=== PATIENT | female | born 1950 | race Caucasian/White ===

== ENCOUNTER 2017-10-10 05:55 | Day surgery (SDC) | payer MEDICARE, MEDICAID, SELFPAY ==
--- NOTE | 2017-10-10 06:06 | EKG12_ITS ---
Test Reason : PRE OP Blood Pressure : / mmHG Vent. Rate : 076 BPM Atrial Rate : 076 BPM P-R Int : 176 ms QRS Dur : 070 ms QT Int : 360 ms P-R-T Axes : 064 027 088 degrees QTc Int : 405 ms Normal sinus rhythm Nonspecific T wave abnormality Abnormal ECG Confirmed by LEYLA PURVIS, HUMBERTO ([id number]), video editor TORI SANCHEZ ([id number]) on 10/13/2017 2:03:25 PM Referred By: Sharlene Casillas Confirmed By:HUMBERTO MAYER MD
[2017-10-10 06:17] VITALS: BP 135/74; PULSE 79; RESP 16; TEMP 36.8; O2SAT 98; BMI 36.3
[2017-10-10 06:20] LABS: Hematocrit 43.1 % (37-47); Hemoglobin 14.1 g/dl (12.0-15.0); Mean Corp Hgb Conc 32.7 g/gl (32-36); Mean Corpuscular Hgb 29.6 pg (27.0-32.0); Mean Corpuscular Volume 90.4 fL (81-99); Mean Platelet Vol. 9.7 fl (6.2-12.0); Platelet Count 341 K/mm3 (150-450); RBC Distribution Width CV 13.1 % (11.6-14.6); RBC Distribution Width SD 43.4 fl (35.1-43.9); Red Blood Count 4.77 M/mm3 (4.2-5.4); White Blood Count 11.5 K/mm3 (4.4-11.0)
[2017-10-10 06:22] LABS: Scan Indicated on CBC? Y/N NO
[2017-10-10] MEDS: Clindamycin 900 MG/50 ML BAG 75 MG IV (07:28)
--- NOTE | 2017-10-10 07:30 | GALL_PTH ---
PATIENT: AMARJIT ARREOLA LOC: [facility] – [place] U#:[id number] AGE/SX: 66/F ROOM: RE10/10/[address]: Dr. Sharlene Casillas MD : 1950 BED: DIS: 10/10/2017 SPEC #: [id number] RECD: 10/10/17 11:35 STATUS: JUAN DAVID GUICHO #: [id number] MICHAEL: 10/10/17 07:[address]: Sharlene Casillas DEPT: SURGICAL PATHOLOGY RECD BY: Tiago Saunders ENTERED: 10/10/17 12:47 SP TYPE: FREDI HARMON DR: Dr. Anthony Schwartz MD Tissues: Gallbladder, NOS Procedures: Surgery Specimen Level III HEADER OPERATION: Laparoscopic cholecystectomy PRE-OP DIAGNOSIS: Calculus of gallbladder without cholecystitis without obstruction TISSUE SUBMITTED: Gallbladder MICROSCOPIC DIAGNOSIS Gallbladder, cholecystectomy: Chronic cholecystitis with denudation of mucosa and cholelithiasis. AM:derek 10/11/17 MICROSCOPIC DESCRIPTION Slides are reviewed. GROSS DESCRIPTION Received is one container labeled with the patient's name and designated gallbladder. The specimen consists of a gallbladder measuring 12 x 5 x 3 cm. The external surface is smooth and glistening. Focally, it is granular, hemorrhagic and contains cautery artifact. The lumen of the gallbladder contains a small amount of yellow bile and dark rojo-arroyo calculus measuring 3 cm in diameter. Also present in the lumen are multiple minute fragments of calculi ranging in size from 0.2 to 0.3 cm. The gallbladder mucosa is smooth and glistening and free of mass lesions. The gallbladder wall averages 0.3 cm in thickness and is free of mass lesions. Beater Dumper sections of the gallbladder and the cystic duct are submitted in one cassette. / AM:derek 10/10/17 TC:3 [facility]: [id number]
[2017-10-10] MEDS: Bupiv/Epi 0.5% Mpf 30 ML Vial (08:46)
--- NOTE | 2017-10-10 08:49 | PCM.IMDPSTOP ---
Immediate Post-Op Note Date of Procedure: 10/10/17 Primary Surgeon/Physician: Sharlene Casillas children's choir director: Siobhan Soto Pre-Operative Diagnosis: cholelithiasis Post-Operative Diagnosis: cholelithiasis with obstruction, cholecystitis Surgery/Procedure Performed:: laparoscopic cholecystectomy Description of Surgical Findings:: large gallbladder stone, edematous gallbladder wall, adhesions to the free surface of the gallbladder of the colon and duodenum Estimated Blood Loss: 10 ml Specimen's removed: gallbladder and contents Type of Anesthesia:: General ASA Class: ASA2 Mod Systematic Disease - Admit VTE Documentation VTE Present on Admission: Yes VTE Mechan Device Prophylaxis: SCD's
--- NOTE | 2017-10-10 08:51 | PCM.OPRPT ---
Report of Operation Date of Procedure: 10/10/17 Pre-Operative Diagnosis: cholelithiasis Post-Operative Diagnosis: cholelithiasis with obstruction, cholecystitis Surgery/Procedure Performed:: laparoscopic cholecystectomy Description of Surgical Findings:: large gallbladder stone, edematous gallbladder wall, adhesions to the free surface of the gallbladder of the colon and duodenum presser automatic: Siobhan Soto Type of Anesthesia:: General Anesthesiologist: Linda Webster Specimen's removed: gallbladder and contents Estimated Blood Loss (mL): 10 ml Fluids Replaced: 1000 ml RL Description of Procedure: After informed consent was given, the patient was brought to the Operating Room and placed in the supine position. Appropriate time out protocol was followed. The patient was then placed under general endotracheal anesthesia. The abdomen was then prepped with a sterile surgical skin preparation and sterile surgical drapes were placed. The supraumbilical skin fold was grasped with penetrating clamps and the skin and subcutaneous tissues were infiltrated with 0.25% marcaine with epinephrine. A skin incision was then made with a 15 blade scalpel. The anterior abdominal wall was elevated and a Veress needle was carefully inserted into the intraabdominal cavity. It was checked to be in the proper position with a normal saline drop test. A CO2 pneumoperitoneum was then created. Once this was achieved, then the Veress needle was removed and an 11mm trocar was placed in its stead. A 10mm laparoscope was then inserted into the trocar and careful attention was directed to the intraabdominal contents. There was no evidence of injury to any intraabdominal organs from insertion of the Veress needle or the trocar. Under direct visualization, a 5mm subxiphoid trocar and two lateral 5mm right subcostal trocars were placed. The skin and subcutaneous tissues at these sites were infiltrated with local anesthetic prior to placement of these trocars. Attention was then directed to the right upper quadrant of the abdomen. The gallbladder was grossly distended. Needle aspirator was inserted into the gallbladder to aspirate its contents - clear slightly tinged green fluid was obtained. This deflated the gallbladder so that it could be grasped easily. Graspers were placed in the lateral trocars to grasp the distal aspect of the gallbladder and direct it cephalad and to grasp the gallbladder at Hartmans pouch and direct it laterally. Dissection then began on the proximal gallbladder continuing down to the area of the triangle of Calot to bluntly dissect out the cystic duct. The neck of the gallbladder was identified and blunt dissection continued to dissect out a segment of the cystic duct. A clip was then placed on the neck of the gallbladder. Two clips were placed proximally and the cystic duct was then transected. The cystic artery was visualized and bluntly isolated and then two clips were placed proximally and one clip distally and then it was transected between the proximal and distal clips. The gallbladder was then from the liver bed using electrocautery and thus able to be brought out of the umbilical port. It was then forwarded to pathology for analysis. The liver bed was carefully examined. There was no evidence of bile leakage or bleeding. The cystic duct stump and cystic artery stump had their clips intact and there was no evidence of bile leakage or bleeding. The remainder of the abdomen was grossly normal. The CO2 was released and all trocars removed intact. The periumbilical fascia was approximated with a [id number] 0 vicryl suture. All skin incision were closed with 4-0 monocryl in a subdermal fashion. Cavilol and Steristrips were used to reinforce the skin closure. Sterile dressings were applied to all wounds. The patient was extubated and brought to the Recovery Room in stable condition. - Complications none noted - Admit VTE Documentation VTE Present on Admission: Yes VTE Mechan Device Prophylaxis: SCD's
--- NOTE | 2017-10-10 08:54 | PCM.DC.GB ---
Discharge Diet: No Restrictions Discharge Activity: Return to Normal Activity, May not drive while taking narcotic pain medications. Lifting Restrictions: no lifting greater than 20 pounds for 2 weeks Call your doctor if your incision/area has: Continuous Slow Oozing, Foul Smelling Discharge Call your doctor if you observe: Fever of 101 or Higher Additional Dressing/Incision Instructions:: Leave dressings in place. May get wet in shower - do not scrub in the area of the dressings. Do not soak - no tub baths/swimming Allergies/Adverse Reactions: Allergies Penicillins Allergy (Verified 10/07/17 10:40) Unknown IT'S MOLD THAT EATS YOUR BLOOD CELLS. Medications to take at Discharge Amlodipine [Norvasc] 5 mg PO DAILY 10/07/17 Benztropine Mesylate 0.5 mg PO BID 10/07/17 Cholecalciferol (Vitamin D3) [Vitamin D3] 1,000 unit PO DAILY 10/07/17 Haloperidol [Haldol] 2.5 mg PO BID 10/07/17 Omeprazole [Prilosec] 20 mg PO DAILY 10/07/17 Hydrocodone Bitart/Apap 5-325 [[place] 5MG-325MG] 1 tab PO Q6H PRN PRN 4 Days #16 tab 10/10/17 The following prescriptions were given: Hydrocodone Bitart/Apap 5-325 [[place] 5MG-325MG] 1 tab PO Q6H PRN PRN 4 Days #16 tab PRN Reason: Pain Primary Care Physician: Anthony Schwartz MD [Primary Care Provider] - Please Follow Up With: Sharlene Casillas MD - call When: to be seen in 7-10 days, please call for date and time, thank you
[2017-10-10 09:04] VITALS: BP 135/74; BP 176/82; PULSE 96; RESP 16; TEMP 36.2; O2SAT 94
[2017-10-10 09:15] VITALS: BP 118/71; BP 135/74; PULSE 90; RESP 16; O2SAT 96
[2017-10-10 09:30] VITALS: BP 131/65; BP 135/74; PULSE 84; RESP 16; O2SAT 93
[2017-10-10 09:45] VITALS: BP 132/68; BP 135/74; PULSE 81; RESP 16; TEMP 36.9; O2SAT 94
[2017-10-10 10:08] VITALS: BP 132/78; BP 135/74; PULSE 70; RESP 18; TEMP 36.6; O2SAT 100
== END 2017-10-10 10:30 | disposition home or self-care (01) ==
LOC: SDC 05:57 → AC 05:59
PROVIDERS: Anesthesiology; Family Provider Family Medicine; PCP Family Medicine; Visit Provider Surgery
PROC: (CPT 47610; principal; 2017-10-10 07:10)
DX: K80.11 Calculus of gallbladder with chronic cholecystitis with obstruction (principal); F20.9 Schizophrenia, unspecified; K21.9 Gastro-esophageal reflux disease without esophagitis; I10 Essential (primary) hypertension; E66.01 Morbid (severe) obesity due to excess calories; Z68.37 Body mass index [BMI] 37.0-37.9, adult; Z91.09 Other allergy status, other than to drugs and biological substances; Z87.42 Personal history of other diseases of the female genital tract; Z86.718 Personal history of other venous thrombosis and embolism; Z87.01 Personal history of pneumonia (recurrent); Z78.0 Asymptomatic menopausal state; F17.210 Nicotine dependence, cigarettes, uncomplicated; Z79.899 Other long term (current) drug therapy
CPT/HCPCS: 00790; 47562; 85027; 88304; 93005; J7120; J2405

== ENCOUNTER 2018-04-02 18:48 | Emergency (ER) | payer MEDICARE, SELFPAY ==
[2018-04-02] VITALS (7 sets, daily range): BP systolic 105–134; BP diastolic 62–94; PULSE 81–103; RESP 14–18; TEMP 36.8; O2SAT 91–96; BMI 36.3
[2018-04-02] MEDS: Ipratropium/Albuterol Sulfate 3 ML AMPUL.NEB INHALATION (19:59)
[2018-04-02 20:07] LABS: Absolute Lymphocyte Count 2.36 X10^3/ul (0.83-4.51); Absolute Neutrophil Count 7.5 X10^3/uL (2.0-7.7); Basophil# 0.02 X10^3/uL; Basophil% 0.2 % (0-1); Eosinophil# 0.15 X10^3/uL; Eosinophils% 1.3 % (0-5); Hematocrit 43.5 % (37-47); Hemoglobin 14.4 g/dl (12.0-15.0); Lymphocyte # 2.36 X10^3/ul (4.0); Lymphocyte % 20.6 % (19-41); Mean Corp Hgb Conc 33.1 g/gl (32-36); Mean Corpuscular Hgb 29.6 pg (27.0-32.0); Mean Corpuscular Volume 89.5 fL (81-99); Mean Platelet Vol. 10.5 fl (6.2-12.0); Monocyte# 1.39 X10^3/uL; Monocyte% 12.1 % (0-10); Neutrophil # 7.54 X10^3/uL (2.7-7.7); Neutrophil % 65.6 % (47-70); Platelet Count 262 K/mm3 (150-450); RBC Distribution Width CV 13.4 % (11.6-14.6); RBC Distribution Width SD 44.1 fl (35.1-43.9); Red Blood Count 4.86 M/mm3 (4.2-5.4); White Blood Count 11.5 K/mm3 (4.4-11.0)
[2018-04-02 20:08] LABS: POSITIVE COUNT NO; POSITIVE DIFFERENTIAL NO; POSITIVE MORPHOLOGY NO
[2018-04-02 20:14] LABS: Anion Gap 7 (5-15); BUN 13 mg/dL (7-18); Calcium,Total 8.7 mg/dL (8.5-10.1); Chloride 102 mmol/L (98-107); Creatinine, Serum 0.76 mg/dL (0.55-1.02); EST Glomerular Filtration Rate 80 mL/min (>60); Est Glom Filt Rate - Afr Amer 97 mL/min (>60); Estimated Creatinine Clearance 47.14 ml/min; Glucose 91 mg/dL (74-106); Potassium 3.9 mmol/L (3.5-5.1); Sodium Level 136 mmol/L (136-145)
--- NOTE | 2018-04-02 20:30 | RAD_ITS ---
STUDY: X-RAY CHEST REASON FOR EXAM: Female, 67 years old. Cough and shortness of breath TECHNIQUE: PA and lateral views of the chest. COMPARISON: 11/18/2015 FINDINGS: EKG leads overlie the chest The lungs are clear and expanded. There is no demonstrated pleural abnormality. Normal size heart. Normal mediastinum and savanna. Normal visualized pulmonary arteries. Normal visualized aortic arch and descending thoracic aorta. There are diffuse degenerative changes of the visualized thoracic spine. Normal visualized ribs, clavicles, and shoulders. There is no demonstrated abnormality of the visualized soft tissue structures of the upper abdomen. RAD/Chest PA and Lateral IMPRESSION: No acute pulmonary process Electronically Signed: Lexx Tavares MD at 20:49 EDT , Service support ,
--- NOTE | 2018-04-02 22:15 | ED.VISSUMM ---
- ER Visit Summary Date of Service: 04/02/18 Chief Complaint: Shortness of breath and cough History of Present Illness: The patient is a 67 F who presents with shortness of breath and cough that has been getting worse over the past 2-3 days. Patient states she is coughing up some clear sputum. Patient admits to subjective fevers. Patient also admits to some rhinorrhea. Patient states her breathing improves when she stands up. Patient [place] and another resident at the penitentiary was recently diagnosed with pneumonia. Caregiver from the penitentiary is concerned that the patient may have developed pneumonia. Physical Examination: Vital signs are stable. Patient is afebrile. Patient is in no acute distress. Oral mucosa is pink and moist. Neck is supple. Trachea is midline. There is no JVD noted. Heart was regular rate and rhythm. Lungs showed scattered rhonchi. There is good respiratory effort noted. Abdomen is soft. Bowel sounds are normal. There is no tenderness. Cranial nerves II through XII are intact. There are no focal motor or sensory deficits noted. The remaining physical exam is within normal limits. Test Results: PA and lateral chest x-ray was obtained. There is evidence of bronchitis. This was interpreted by the radiologist and reviewed by myself. Emergency Department Course and Treatment: Patient was given a DuoNeb aerosol here. Patient was given a dose of Zithromax here. Patient was given a prescription for Zithromax. Patient was instructed to follow-up with her primary care physician in 5-7 days. Patient was instructed to continue her inhaler as previously prescribed. Patient and her caregiver understood and were agreeable with the plan. All questions were answered. Disposition: Discharge home Impression: Acute bronchitis This note was generated with [employer] dictation software. It may contain incorrect words, spelling, and punctuation that were not noted in review of the chart prior to signing ED Disposition - Plan for ED Patient: Disposition: Home or Assisted Living Chief Complaint: Shortness of Breath Diagnosis: Acute bronchitis Instructions: ED Bronchitis Asthmatic Prescriptions: Azithromycin [Zithromax] 250 mg PO DAILY #4 tab Referrals: Anthony Schwartz MD [Primary Care Provider] - Additional Instructions: Use your inhaler as previously prescribed. Take the antibiotic daily until gone starting on April 03.
[2018-04-02] MEDS: Azithromycin 250 MG Tablet 500 MG PO (22:26)
--- NOTE | 2018-04-03 13:36 | CM.ED ---
ED CALLBACK: Follow-up call placed to patient with no answer. Voicemail left with return contact information.
== END 2018-04-02 22:29 | disposition home or self-care (01) ==
PROVIDERS: Emergency Provider Emergency Medicine; Family Provider Family Medicine; PCP Family Medicine
DX: J20.9 Acute bronchitis, unspecified (principal); K21.9 Gastro-esophageal reflux disease without esophagitis; I10 Essential (primary) hypertension; F20.9 Schizophrenia, unspecified; Z72.0 Tobacco use; Z79.899 Other long term (current) drug therapy
CPT/HCPCS: 71046; 80048; 85025; 94640; 99285; A4216

== ENCOUNTER 2019-01-18 09:15 | Day surgery (SDC) | payer MEDICARE, SELFPAY ==
--- NOTE | 2019-01-17 18:54 | HP.PCM_ITS ---
History and Physical Date of Admission: 01/18/19 Lupe Chamberlain 1950 ? ? REFERRING PHYSICIAN: Anthony Schwartz MD ? CHIEF COMPLAINT: Mammogram Abnormality ? HPI: The patient is a 68 year old female presents with right nipple inverstion noted for about 2 years. Denies palpable breast mass. Denies nipple discharge. Denies breast pain. Has abnormal mammograms and ultrasound - see below. Denies TOB use. No breast or ovarian cancer known in family. Mother had uterine cancer. ? Mammograms 12/05/18 There is a 1.2 cm round equal density focal asymmetry in the right breast at 12 o'clock in the retroareolar region. ?There is nipple retraction associated with the focal asymmetry.No other significant masses or calcifications are seen in the breast. US 12/27/18 There is 1.2 cm x 0.8 cm x 1.3 cm oval complex cyst with a smooth internal wall in the right breast at 12 o'clock anterior depth. ?This oval complex cyst is anechoic with a well-defined boundary. ?This correlates with mammography findings. ? Within the cyst, there is a soft tissue mass measuring 4 mm in diameter. ? US guided right needle core breast biopsy - fragmented intraductal papilloma with focal atypical ductal hyperplasia? ? ? PAST MEDICAL HISTORY ? Acute bronchitis ? ? Dementia ? ? since early 1969's ? Endometriosis, site unspecified ? ? had hyster for this ? GERD (gastroesophageal reflux disease) ? ? HTN (hypertension) ? ? Other specified types of schizophrenia, chronic condition ? ? [facility] ? PAST SURGICAL HISTORY ? APPENDECTOMY ? 1982 ? when they did hyster ? LAPAROSCOPIC CHOLEYCYSTECTOMY ? 10/10/2017 ? PAST SURGICAL HISTORY OF ? ? ? cyst removed on right breast ? PAST SURGICAL HISTORY OF ? ? ? cyst removed right ear ? PAST SURGICAL HISTORY OF ? ? ? cyst removed left great toe ? TOTAL ABDOM HYSTERECTOMY ? 1982 ? Hysterectomy, JUAN CARLOS ? ? Current Outpatient Medications: escitalopram oxalate (LEXAPRO) 10 mg tablet ? amLODIPine (NORVASC) 5 mg tablet Take 1 tablet by mouth once daily. Cholecalciferol, Vitamin D3, (VITAMIN D) 1,000 unit cap Take 1 capsule by mouth every morning. omeprazole (PRILOSEC) 20 mg capsule TAKE 1 CAPSULE BY MOUTH DAILY BEFORE BREAKFAST. 1/2 HOUR BEFORE MEAL. albuterol HFA (PROAIR HFA) 90 mcg/actuation inhaler Inhale 2 Puffs as instructed every 4 hours as needed. VENTOLIN HFA 90 mcg/actuation inhaler INHALE 2 PUFFS EVERY 4 HOURS NEEDED WHEEZING / SHORTNESS OF BREATH COMPOUNDED PRESCRIPTION Large depends diapers1 box doxycycline monohydrate (MONODOX) 100 mg capsule Take 1 capsule by mouth twice daily. benzonatate (TESSALON PERLE) 100 mg capsule Take 1 capsule by mouth three times daily as needed. PAIN AND FEVER 500 mg tablet PATIENT MAY USE 500 OR 650MG EVERY SIX HOURS NEEDED FOR PAIN loratadine (CLARITIN) 10 mg tablet Take 1 tablet by mouth once daily. MAPAP ARTHRITIS PAIN 650 mg CR tablet PATIENT MAY USE 500MG TO 650MG EVERY SIX HOURS NEEDED FOR PAIN benztropine (COGENTIN) 1 mg tablet Take 0.5 mg by mouth twice daily. COMPOUNDED PRESCRIPTION Patient may use tylenol 500-650 mg every six hours as needed for pain. haloperidol 5 mg tablet Take 0.25 mg by mouth twice daily. ? ? ALLERGIES: Penicillins ? PERSONAL HISTORY: Social History Socioeconomic History Marital status: Spouse name: Not on file Occupational History Not on file Tobacco Use Smoking status: Current Every Day Smoker Years: 30.00 Types: Cigarettes Smokeless tobacco: Never Used Tobacco comment: one or two a day ? FAMILY HISTORY ? Cancer Mother ?? uterine cancer ? Hypertension Mother ? ? Heart Mother ? ? Cancer Father ?? lung cancer ? Cancer Brother ? lung ? other (dementia) Sister ? ? Cancer Sister ? lumphoma ? ? REVIEW OF SYSTEMS: General: The patient denies fatigue, denies weight loss, denies weight gain, denies feeling hot, and denies feelings of cold. Eyes: The patient denies glaucoma, denies eye injury/surgery, does not wear glasses or contacts. Ear/Nose/Throat: The patient denies allergies, NOTES hayfever, denies ear infections, and denies bloody noses. Cardiovascular: The patient denies chest pain, denies heart disease, NOTES high blood pressure,denies cardiac stent, denies prior heart attack, denies irregular heart beat, denies high cholesterol, denies poor circulation, denies heart failure, other cardiac issues, denies claudication, denies cold feet, denies peripheral arterial stent. Respiratory: The patient denies tuberculosis, denies pneumonia, denies frequent cough, denies pulmonary embolism, denies shortness of breath, and denies coughing up blood. Gastrointestinal: The patient denies difficulty swallowing, NOTES acid reflux, denies ulcers, denies vomiting, denies jaundice/hepatitis, denies gallbladder problems, denies black or tarry stools, denies hemorrhoids, denies bleeding from rectum, denies diverticulitis, denies constipation, denies diarrhea, denies loss of stool control, and denies hernias. Kidney/Bladder: The patient denies kidney stones, denies urine infections, and denies bloody urine. Skin: The patient denies a history of skin cancer, denies blee ding/changing moles, and denies a history of skin rash. Neurologic: The patient denies a history of epilepsy/convulsions, denies headaches, denies head/spinal injuries, and denies stroke/TIA. Psychiatric: The patient denies psychiatric medications, NOTES depression, and denies voices, denies substance abuse. Endocrine: The patient denies thyroid disorders, denies diabetes, and de nies hormonal problems. Hematologic: The patient denies a history of bruising, denies bleeding, and denies anemia, denies blood clots. Infections: The patient NOTES a history of measles and mumps, denies rheumatic fever, and denies sexually transmitted diseases. Musculoskeletal: The patient denies back pain/injury, denies back problems, denies sciatica, denies knee/foot trouble, denies arthritis, or denies gout. Obstetrical: menarche onset at age [age], G0, BCP use from age 14 for >20y, surgical menopause at age 33 ? PHYSICAL EXAMINATION: General: The patient is 68 year old female, well nourished, well hydrated in no acute distress. The patient is oriented to time, place, and person. VITALS: Blood pressure 122/64, pulse 80, weight 98.9 kg (218 lb). Body mass inde x is 37.42 kg/m?. Head ? Normocephalic. EOM intact with sclera clear and no icterus noted. Mouth with mucus membranes moist. Neck - supple with no jugular venous distention noted. Trachea is midline. No carotid bruits noted. No thyroid enlargement or thyroid nodules detected. No masses noted. Chest/breast ? no asymmetry of breasts noted, no suspicious skin lesions noted, right nipple inversion - no left nipple inversion, healed incisional biopsy site with slight ecchymoses, no nipple discharge, Lungs ? clear to auscultation.. Normal breath sounds No rales/rhonchi/wheezing noted. No labored breathing noted, such as retractions. No cough heard. Heart ? normal S1 and S2 auscultated. No rubs/clicks/murmurs noted. Regular rate. Abdomen ? soft and benign. Normal bowel sounds. No abdominal bruits noted. Difficult to determine if any masses or organomegaly due to body habitus. Extremities ? no calf tenderness noted. No pitting edema noted. Skin ? normal skin integrity. Lymph ? no cervical adenopathy detected, no supraclavicular adenopathy detected, no axillary adenopathy detected Neurological ? gait normal, no focal deficits noted Psych ? calm and appropriate, RADIOLOGIC STUDIES: As Noted ? ? IMPRESSION: atypical ductal hyperplasia, right nipple inversion, abnormal right breast mammograms/US ? PLAN: I have discussed the above with the patient who is here with her case loader operator. I have recommended wide local excision to absolutely rule out breast malignancy. I have offered wide local excision via right breast biopsy via wire localization. I have answered all questions to the patient?s satisfaction and the patient has no further questions. Will schedule at [facility]. . Return to Clinic: The patient is instructed to follow-up with me after the procedure. ? Sharlene Casillas MD ?
--- NOTE | 2019-01-18 09:26 | BI_ITS ---
SURGICAL BREAST SPECIMEN RADIOGRAPH CLINICAL: Document presence of mass in biopsy specimen. FINDINGS: Specimen shows presence of mass. Electronically Signed: Riley Baum, at 7:58 EDT , Service support , BI/Breast Biopsy Specimen
[2019-01-18 09:34] VITALS: BP 142/65; PULSE 71; RESP 18; TEMP 36.8; O2SAT 96; BMI 36.5
[2019-01-18] MEDS: Bupiv/Epi 0.25% 30 ML Vial (11:53)
--- NOTE | 2019-01-18 12:00 | BRBX_PTH ---
PATIENT: AMARJIT ARREOLA LOC: [facility] [place] U#:[id number] AGE/SX: 68/F ROOM: RE01/18/[address]: Dr. Sharlene Casillas MD : 1950 BED: DIS: 01/18/2019 SPEC #: [id number] RECD: 01/18/19 12:17 STATUS: JUAN DAVID RENimco #: [id number] MICHAEL: 01/18/19 12:[address]: Sharlene Casillas DEPT: SURGICAL PATHOLOGY RECD BY: Tiago Saunders ENTERED: 01/18/19 13:32 SP TYPE: BREAST BX OTHR DR: Dr. Anthony Schwartz MD Tissues: Right breast, NOS Procedures: Surgery Specimen Level V HEADER OPERATION: Right breast biopsy via wire localization PRE-OP DIAGNOSIS: Atypical ductal hyperplasia - right; right nipple inversion; abnormal right breast mammogram TISSUE SUBMITTED: Right breast tissue with wire MICROSCOPIC DIAGNOSIS Right breast tissue with excisional biopsy with wire-guided localization: Intraductal papilloma, multifocal. Fibrocystic changes and intraductal hyperplasia with focal atypia. Ductal dilation. Changes consistent with previous biopsy site. Negative for malignancy. 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 Case has been reviewed in consultation with Dr. Sow who concurs with the above diagnosis. IDC:AM MICROSCOPIC DESCRIPTION Slides are reviewed. GROSS DESCRIPTION Received in fixative is one container labeled with the patient's name and designated right breast tissue. The specimen consists of an irregular fragment of yellow-white soft tissue measuring 9 x 3.6 x 2.5 cm and containing a metallic wire. No orientation is provided. The specimen weighs 29.7 gm. An area of hemorrhage possibly representing previous biopsy site is present measuring 2.5 x 1.2 cm. The specimen is inked and serially sectioned to reveal yellow-white cut surfaces. No distinct mass lesion is identified. Focal chalky, yellow discoloration is seen adjacent to the hemorrhagic area. Excavating Machine Operator sections are submitted in ten cassettes. The biopsy cavity is best represented in sections 1-5. / AM:derek 01/19/19 TC: 5 CPT: 75151
--- NOTE | 2019-01-18 12:23 | PCM.OPRPT ---
Report of Operation Date of Procedure: 01/18/19 Pre-Operative Diagnosis: breast neoplasia of uncertain behavior, right breast mass, abnormal right breast mammograms, right breast nipple inversion Post-Operative Diagnosis: same as above - pathology pending Surgery/Procedure Performed:: right breast biopsy via wire localization Description of Surgical Findings:: hematoma noted from biopsy, retroareolar mass causing right nipple inversion, clip not in specimen but all tissue from retroareolar area taken in biopsy boring mill operator for metal: Jordi Hernandez Type of Anesthesia:: Local MAC Anesthesiologist: Becky Salmeron Specimen's removed: right breast tissue Estimated Blood Loss (mL): < 10 ml Fluids Replaced: 1000 ml RL Description of Procedure: After informed consent was given, the patient was brought into the Breast Stereotactic Radiology suite. Appropriate time out protocol was followed. She was then placed in the prone position on the [place] stereotactic table. The patient?s right breast was placed in the opening at the head of the table. A water resource project manager compression mammogram was then obtained in the lateral view. The marker clip that was previously placed was identified. Stereo pictures of the lesion were then taken for XYZ coordinates. The Kopans needle was then positioned where it would be entering into the patient?s breast. The skin at this site was then cleansed with a surgical skin preparation. The skin and subcutaneous tissues at this site were then infiltrated with 1% xylocaine. The Kopans needle was then positioned into the patient?s breast at the proper coordinates of depth. A water resource project manager film was obtained which revealed the wire in proper position. The patient was then placed in the supine position and the wire was taped into place. A unilateral mammogram in the CC and MLO view were then taken for use in the OR. The patient tolerated this portion of the procedure well and was brought to the AC awaiting surgery in the OR. The patient was then brought to the Operating Room. Appropriate time out protocol was followed. She was then placed on the operating table in the supine position. A wire had already been placed in the stereotactic biopsy room in the radiology department as described above. The right breast with the wire in placed was then prepped with a sterile surgical skin preparation and sterile surgical drapes were placed. The skin and subcutaneous tissues at the site of the breast lesion was then infiltrated with 1% xylocaine with epinephrine. A transverse curvilinear skin incision was made on the lateral border of the areola of the right breast with a 15 blade scalpel and carried down through to the subcutaneous tissues. Hemostasis was controlled with electrocautery. The wire was then palpated out and brought into the wound from outside. The breast tissue surrounding the wire was then carefully palpated out, of note, there was a large hematoma in this area. However, the biopsy cavity was from the surrounding breast tissue in its entirety. Also there was a dense area of breast tissue that seemingly was causing the right nipple inversion and this was excised also from the surrounding breast tissue. and from the surrounding tissues using electrocautery. The breast tissue, once from the breast, was then forwarded to the radiology department. The specimen mammogram did not show the marker clip. The breast tissue was then forwarded to pathology for analysis. No further suspicious tissue was palpated or visualized. Hemostasis was carefully controlled with electrocautery. The subdermal tissues were then approximated with vicryl suture. The incision was then reapproximated close using running monocryl suture. Cavilon and steristrips were then placed to reinforce the skin closure. A sterile dressing was then applied. The patient was then brought to the Recovery Room in stable condition. - Complications none noted - Admit VTE Documentation VTE Present on Admission: Yes VTE Mechan Device Prophylaxis: SCD's
--- NOTE | 2019-01-18 12:29 | PCM.DC.BS ---
Discharge Diet: No Restrictions Discharge Activity: Return to Normal Activity, May not drive while taking narcotic pain medications. Additional Activity Instructions:: May shower and can get dressing wet. Do not scrub in area. Do not soak - no tub baths/swimming Call your doctor if your incision/area has: Continuous Slow Oozing, Foul Smelling Discharge Call your doctor if you observe: Fever of 101 or Higher Additional Dressing/Incision Instructions:: Leave dressing in place. Do not scrub in area. Wear supportive bra during the day. May apply ice to area for comfort Allergies/Adverse Reactions: Allergies Penicillins Allergy (Verified 01/15/19 14:09) Unknown IT'S MOLD THAT EATS YOUR BLOOD CELLS. Medications to take at Discharge Amlodipine [Norvasc] 5 mg PO DAILY 10/07/17 Benztropine Mesylate 0.5 mg PO BID 10/07/17 Cholecalciferol (Vitamin D3) [Vitamin D3] 1,000 unit PO DAILY 10/07/17 Haloperidol [Haldol] 2.5 mg PO BID 10/07/17 Omeprazole [Prilosec] 20 mg PO DAILY 10/07/17 Loratadine 10 mg PO DAILY 04/02/18 Escitalopram Oxalate [Lexapro] 10 mg PO QHS 01/15/19 Primary Care Physician: Anthony Schwartz MD [Primary Care Provider] - Please Follow Up With: Sharlene Casillas MD - call When: to be seen in a week, please call for date and time, thank you
[2019-01-18 12:40] VITALS: BP 110/58; BP 142/65; PULSE 86; RESP 16; TEMP 36.2; O2SAT 93
[2019-01-18 12:45] VITALS: BP 122/66; BP 142/65; PULSE 81; RESP 16; O2SAT 92
[2019-01-18 12:50] VITALS: BP 107/53; BP 142/65; PULSE 82; RESP 16; O2SAT 92
[2019-01-18 12:55] VITALS: BP 131/75; BP 142/65; PULSE 84; RESP 16; TEMP 36.1; O2SAT 93
[2019-01-18] MEDS: HYDROcodone Bitartrate/Apap 5/325 Tablet PO (13:10)
--- NOTE | 2019-01-18 13:25 | SUR.PHASEII ---
SPOKE WITH SCISSORS SHARPENER, CHRIS, WHO ASKED THAT NURSING WOULD REVIEW D/C INSTRUCTIONS WITH DETENTION STAFF. CALLED DETENTION, STAFF MEMBER COMING TO GET PATIENT AND REVIEW INSTRUCTIONS.
[2019-01-18 13:41] VITALS: BP 136/71; BP 142/65; PULSE 66; RESP 18; TEMP 37.1; O2SAT 93
== END 2019-01-18 14:06 | disposition home or self-care (01) ==
LOC: SDC 09:16 → AC 09:17
PROVIDERS: Family Provider Family Medicine; PCP Family Medicine; Referring Provider Surgery; Visit Provider Surgery
PROC: (CPT 19101; principal; 2019-01-18 11:45)
DX: D24.1 Benign neoplasm of right breast (principal); N60.91 Unspecified benign mammary dysplasia of right breast; F03.90 Unspecified dementia, unspecified severity, without behavioral disturbance, psychotic disturbance, mood disturbance, and anxiety; K21.9 Gastro-esophageal reflux disease without esophagitis; I10 Essential (primary) hypertension; F20.9 Schizophrenia, unspecified; F17.210 Nicotine dependence, cigarettes, uncomplicated; Z86.718 Personal history of other venous thrombosis and embolism; Z79.899 Other long term (current) drug therapy
CPT/HCPCS: 00400; 19101; 19281; 76098; 88305; 88307; J7120; J2405

== ENCOUNTER 2021-10-31 12:57 | Observation (INO) | payer MEDICARE, MEDICAID, SELFPAY ==
[2021-10-31] VITALS (10 sets, daily range): BP systolic 91–164; BP diastolic 52–79; PULSE 63–91; RESP 14–24; TEMP 36.6–36.8; O2SAT 56–99; BMI 39.2; BMI 37.9
--- NOTE | 2021-10-31 13:04 | EDS_ITS ---
HPI History of Present Illness Chief Complaint: Fall Detail of Chief Complaint: Fall with injury to right ankle Informant: patient Narrative Narrative: Patient presents to the emergency department after sustaining a fall. Patient states that she was in her driveway when she slipped on loose gravel and injured her right ankle. She was unable to bear weight afterwards. Patient lives in a residential. EMS was called and bring patient to ER for evaluation. Patient has history of hypertension and schizophrenia. PFSH PFSH Home Medications amlodipine 5 mg PO DAILY 10/07/17 [History Last Taken 01/18/19] benztropine 0.5 mg PO BID 10/07/17 [History Last Taken 01/18/19] cholecalciferol (vitamin D3) [Vitamin D3] 1,000 unit PO DAILY 10/07/17 [History Last Taken Unknown] haloperidol 2.5 mg PO BID 10/07/17 [History Last Taken 01/18/19] loratadine 10 mg PO DAILY 04/02/18 [History Last Taken 01/18/19] escitalopram oxalate 10 mg PO QHS 01/15/19 [History Last Taken 01/18/19] Allergy/AdvReac Type Severity Reaction Status Date / Time Penicillins Allergy Unknown Verified 10/31/21 13:01 Social History Smoking Status: Current every day smoker tobacco type: cigarettes ROS ROS ED Constitutional Constitutional ED: Reports systems reviewed and no addt'l complaints, except as documented; Denies body ache(s), change in weight or chills Eyes Eyes: Denies acute decrease in peripheral vision, change in vision, double vision or loss of vision ENT ENT ED: Reports none; Denies ear pain, lip swelling, loss taste/smell, neck pain, otalgia or sore throat Cardiovascular Cardiovascular: Reports none; Denies abdominal pain, chest pain with activity, leg edema, lightheadedness, palpitations, rapid heart rate or syncope Respiratory/Chest Respiratory/Chest: Reports none; Denies change in mental status, dry cough, dyspnea, hemoptysis, shortness of breath at rest or shortness of breath with exertion Gastrointestinal Gastrointestinal: Reports none; Denies abdominal pain, change in stool character, diarrhea, hematemesis, hematochezia, melena, rectal bleeding or vomiting Genitourinary Genitourinary ED: Reports none; Denies abdominal discomfort, anuria, dysuria, genital pain or polyuria Musculoskeletal Musculoskeletal: Reports none and other Details: Right ankle pain/injury ; Denies arthralgias, back pain, difficulty walking, extremity pain, muscle weakness or myalgias Integumentary Reports none; Denies abscess or rash Neurologic Neurologic: Reports none; Denies abnormal gait, confusion, focal weakness, frequent falls, headache(s), loss of vision, numbness, paresthesias, radicular pain, vertigo or weakness Psychiatric Psychiatric: Reports systems reviewed and no addt'l complaints, except as documented and none; Denies behavioral changes, confusion, difficulty concentrating, hallucinations, suicidal ideation, tactile hallucinations or visual hallucinations Endocrine Endocrinology: Denies none, cold intolerance, excessive sweating, fatigue or heat intolerance Hematologic/Lymphatic Hematologic/Lymphatic: Reports none; Denies anemia, easy bleeding or easy bruising Allergic/Immunologic Allergic/Immunologic ED: Denies as per HPI, none, lip swelling, mouth swelling, throat swelling, tongue swelling or hives EXAM Physical Exam Const Vital Signs: 10/31/21 12:58 10/31/21 13:04 10/31/21 13:31 Temperature 98.0 F Temperature Source Oral Pulse Rate 63 65 Pulse Rate [1 (Initial Baseline)] Pulse Rate [3] Pulse Rate [4] Respiratory Rate 20 H 15 Respiratory Rate [1 (Initial Baseline)] Respiratory Rate [2] Respiratory Rate [3] Respiratory Rate [4] Respiratory Effort Normal Respiratory Depth Normal Blood Pressure 91/64 111/52 L Blood Pressure [1 (Initial Baseline)] Blood Pressure [3] Blood Pressure [4] Blood Pressure Mean 73 Pulse Ox 95 98 Oxygen Delivery Method Room Air Nasal Cannula Oxygen Delivery Method [1 (Initial Baseline)] Oxygen Delivery Method [2] Oxygen Delivery Method [3] Oxygen Delivery Method [4] Oxygen Flow Rate (L/min) 1 Oxygen Flow Rate (L/min) [1 (Initial Baseline)] Oxygen Flow Rate (L/min) [2] Oxygen Flow Rate (L/min) [3] Oxygen Flow Rate (L/min) [4] 10/31/21 13:32 10/31/21 13:42 10/31/21 13:46 Temperature Temperature Source Pulse Rate 66 65 Pulse Rate [1 (Initial Baseline)] 68 Pulse Rate [3] 71 Pulse Rate [4] 67 Respiratory Rate 20 H 19 H Respiratory Rate [1 (Initial Baseline)] 17 Respiratory Rate [2] 24 H Respiratory Rate [3] 22 H Respiratory Rate [4] 21 H Respiratory Effort Respiratory Depth Blood Pressure 133/65 H 126/64 H Blood Pressure [1 (Initial Baseline)] 111/52 L Blood Pressure [3] 132/68 H Blood Pressure [4] 133/65 H Blood Pressure Mean Pulse Ox 98 97 Oxygen Delivery Method Nasal Cannula Nasal Cannula Oxygen Delivery Method [1 (Initial Baseline)] Nasal Cannula Oxygen Delivery Method [2] Non-Rebreather Oxygen Delivery Method [3] Non-Rebreather Oxygen Delivery Method [4] Non-Rebreather Oxygen Flow Rate (L/min) 3 3 Oxygen Flow Rate (L/min) [1 (Initial Baseline)] 3 Oxygen Flow Rate (L/min) [2] 15 Oxygen Flow Rate (L/min) [3] 15 Oxygen Flow Rate (L/min) [4] 15 10/31/21 13:51 10/31/21 13:53 Temperature Temperature Source Pulse Rate 65 Pulse Rate [1 (Initial Baseline)] Pulse Rate [3] Pulse Rate [4] Respiratory Rate 17 Respiratory Rate [1 (Initial Baseline)] Respiratory Rate [2] Respiratory Rate [3] Respiratory Rate [4] Respiratory Effort Respiratory Depth Blood Pressure 124/63 H Blood Pressure [1 (Initial Baseline)] Blood Pressure [3] Blood Pressure [4] Blood Pressure Mean Pulse Ox 95 Oxygen Delivery Method Room Air Room Air Oxygen Delivery Method [1 (Initial Baseline)] Oxygen Delivery Method [2] Oxygen Delivery Method [3] Oxygen Delivery Method [4] Oxygen Flow Rate (L/min) Oxygen Flow Rate (L/min) [1 (Initial Baseline)] Oxygen Flow Rate (L/min) [2] Oxygen Flow Rate (L/min) [3] Oxygen Flow Rate (L/min) [4] Positive well nourished and well developed General Appearance ED: well developed and NAD HEENT Reports TM's clear and moist mucous membranes normocephalic and atraumatic; Negative for trauma or tenderness Tympanic Membrane ED: Yes TM's clear Eyes PERRL and EOMs intact bilaterally General Eye ED: Negative for pale conjunctiva or scleral icterus Neck no lymphadenopathy, supple and no JVD General: Negative for tenderness Chest Wall inspection of chest normal and palpation of chest normal Chest: Negative for tenderness Resp normal respiratory effort and clear to auscultation bilaterally Effort and Inspection: Negative for respiratory distress or pain with movement Auscultation: Negative for rhonchi, wheezes or diminished lung sounds Cardio regular rate, regular rhythm, S1 normal heart sound, S2 normal heart sound and no murmurs Peripheral Pulses: pulses 2+ throughout GI normal to inspection, nondistended, normoactive bowel sounds, soft to palpation, non-tender, non-distended and no masses Back/Spine no CVA tenderness and no thoracic nor lumbar tenderness Extremity Extremity Narrative: Patient with some soft tissue swelling diffusely about the ankle. With tenderness to palpation over the distal fibula and tibia. Neurovascular intact distally. No broken or open skin noted. General Extremety ED: Negative for edema General Extremity: Negative for edema Neuro oriented x3, CN's II-XII intact bilaterally, no sensory deficits noted and gait normal Sensorium / Orientation: awake, alert, oriented to person, oriented to place and oriented to time Motor Exam: strength 5/5 throughout and strength abnormal Psych mental status grossly normal Skin no rashes or lesions noted and no wounds MDM MDM MDM Narrative Medical decision making narrative: Patient noted to have a trimalleolar fracture on my interpretation of the x-rays. Case was discussed with orthopedic surgeon on-call Dr. Hawley who recommended reduction of ankle and splint placement. Patient was consented for procedural sedation and was sedated with propofol total of 80 mg used with good sedation. Patient also received fentanyl 25 mcg IV. Total time of sedation was 20 minutes. Patient had a posterior and stirrup type splint placed. I was able to easily reduce the ankle with just gentle traction. Post reduction films obtained interpreted by myself as good reduction of ankle dislocation. Case will be discussed with hospitalist evaluate patient for admission as she will not be able to ambulate or use crutches. Patient will be followed by orthopedics as well for definitive care. Basic labs were ordered and are pending. Lab Data Labs: Laboratory Results - last 24 hr 10/31/21 10/31/21 13:50 13:50 WBC 12.5 H RBC 4.46 Hgb 13.4 Hct 41.0 MCV 91.9 MCH 30.0 MCHC 32.7 RDW Std Deviation 42.5 RDW Coeff of Jaspal 12.6 Plt Count 270 MPV 9.8 Immature Gran % (Auto) 0.200 Neut % (Auto) 67.3 Lymph % (Auto) 24.2 [place] % (Auto) 6.9 Eos % (Auto) 1.2 Baso % (Auto) 0.2 Absolute Neuts (auto) 8.4 H Absolute Lymphs (auto) 3.02 Nucleated RBC % 0 Sodium 139 Potassium 3.7 Chloride 106 Carbon Dioxide 29.0 Anion Gap 4 L BUN 10 Creatinine 0.86 Estim Creat Clear Calc 51.81 Est GFR (MDRD) Af Amer 84 Est GFR (MDRD) Non-Af 69 BUN/Creatinine Ratio 11.6 Glucose 117 H Calcium 8.4 L Radiography Diagnostic Testing: Clinical Impression(s) from Imaging Studies Ankle X-Ray 10/31/21 13:04 IMPRESSION: 1. Acute fractures of the medial and lateral malleoli 2. Acute fracture of the posterior tibial malleolus. 3. Mild lateral and posterior subluxation of the talus relation to the tibial plafond is present. Electronically Signed: Med Walker MD at 13:52 EDT Reading Location ID and State: [facility] / [place] , Service support , Three-view x-rays of the right ankle interpreted by myself as trimalleolar fracture with ankle dislocation. Discharge Plan Dx/Rx/DC Orders Clinical Impression: Closed trimalleolar fracture of ankle Disposition Disposition: [facility] Care [facility]
--- NOTE | 2021-10-31 13:04 | RAD_ITS ---
STUDY: X-RAY - RIGHT ANKLE REASON FOR EXAM: Female, 71 years old. injury TECHNIQUE: 3 view(s) of the ankle. COMPARISON: None. FINDINGS: An acute oblique fracture of the lateral malleolus is present with mild displacement. An acute transverse fracture through the origin of the medial malleolus is also present with mild displacement. Oblique fracture through the posterior tibial malleolus with displacement is also visualized. Mild lateral and posterior subluxation of the talus relation to the tibial plafond is present. Normal visualized talus and calcaneus. The visualized subtalar, talonavicular, calcaneocuboid and tarsal articulations are normal. Mild to moderate soft tissue swelling around the ankle joint. RAD/Ankle min 3 Views IMPRESSION: 1. Acute fractures of the medial and lateral malleoli 2. Acute fracture of the posterior tibial malleolus. 3. Mild lateral and posterior subluxation of the talus relation to the tibial plafond is present. Electronically Signed: Med Walker MD at 13:52 EDT ,
[2021-10-31] MEDS: Ondansetron 4 MG/2 ML Vial IV (13:27)
[2021-10-31] MEDS: fentaNYL 100 MCG/2 ML Ampul 25 MCG IV (13:27)
[2021-10-31] MEDS: Propofol 200 MG/20 ML Vial IV BOLUS (13:29)
--- NOTE | 2021-10-31 13:43 | RAD_ITS ---
STUDY: X-RAY - RIGHT ANKLE REASON FOR EXAM: Female, 71 years old. post reduction TECHNIQUE: 3 view(s) of the ankle. COMPARISON: 10/31/2021 at 1308 FINDINGS: Improved alignment of the oblique fracture the distal right fibula the level tibial plafond. Improved alignment of transverse fracture through the base the medial malleolus the tibia. Interval reduction of the posterior subluxation of the tibiotalar joint. Normal visualized talus and calcaneus. The visualized subtalar, talonavicular, calcaneocuboid and tarsal articulations are normal. Fiberglas cast a pure soft tissue and bony detail. RAD/Ankle min 3 Views IMPRESSION: Interval reduction of tibiotalar joint with improved alignment of fractures the distal fibula and medial malleolus. Electronically Signed: Tarik Chavez MD at 14:42 EDT ,
[2021-10-31 13:57] LABS: Absolute Lymphocyte Count 3.02 X10^3/uL (0.83-4.51); Absolute Neutrophil Count 8.4 X10^3/uL (2.0-7.7); Basophil# 0.03 X10^3/uL; Basophil% 0.2 % (0-1); Eosinophil# 0.15 X10^3/uL; Eosinophils% 1.2 % (0-5); Hemoglobin 13.4 g/dL (12.0-15.0); Lymphocyte # 3.02 X10^3/ul (0.83-4.51); Lymphocyte % 24.2 % (19-41); Mean Corp Hgb Conc 32.7 g/dL (32-36); Mean Corpuscular Volume 91.9 fL (81-99); Mean Platelet Vol. 9.8 fl (6.2-12.0); Monocyte# 0.86 X10^3/uL; Monocyte% 6.9 % (0-10); NRBC Flagged by Analyzer 0 % (0-5); Neutrophil # 8.39 X10^3/uL (2.7-7.7); Neutrophil % 67.3 % (47-70); Platelet Count 270 K/mm3 (150-450); RBC Distribution Width CV 12.6 % (11.6-14.6); RBC Distribution Width SD 42.5 fl (35.1-43.9); Red Blood Count 4.46 M/mm3 (4.2-5.4); White Blood Count 12.5 K/mm3 (4.4-11.0)
[2021-10-31 14:10] LABS: Anion Gap 4 (5-15); BUN 10 mg/dL (7-18); BUN/Creat Ratio 11.6 RATIO (10-20); Calcium,Total 8.4 mg/dL (8.5-10.1); Chloride 106 mmol/L (98-107); Creatinine, Serum 0.86 mg/dL (0.55-1.02); EST Glomerular Filtration Rate 69 mL/min (>60); Est Glom Filt Rate - Afr Amer 84 mL/min (>60); Estimated Creatinine Clearance 51.81 ml/min; Glucose 117 mg/dL (74-106); Potassium 3.7 mmol/L (3.5-5.1); Sodium Level 139 mmol/L (136-145)
--- NOTE | 2021-10-31 14:24 | CASEMGMT ---
Social Work Note SW received call from Alison Benites with [facility]'s prison. Alison states that pt will need to be independent, able to bear weight and do the stairs/steps to [facility] the [facility]. Alison states that pt's SW is Mami Smart. Alison states that pt is own person, does not have a guardian. JOSE MIGUEL informed Alison that it appears pt will be admitted to [facility]. Alison states she will follow up with [facility] on Tuesday. Bharti Webster [employer], [employer]
--- NOTE | 2021-10-31 14:36 | HP.PCM.HOS_ITS ---
HPI - General General Date of Admission: 10/31/21 HPI Narrative Patient presents to the emergency department after sustaining a fall. Patient slipped on loose gravel and injured her right ankle by twisting and then sitting on it. She never fractured her ankle before and does not have a history of osteoporosis. She was unable to bear weight afterwards. Patient lives in a snf and has been there for 4 years and states that is going well there. Patient has history of hypertension and schizophrenia. Schizophrenia is controlled on her medications. She states she smokes half a pack a day of cigarettes in ED, xray with fractures of the medial and lateral malleoli, posterior tibial malleolus. Patient had reduction with a posterior and stirrup type splint placed. Post reduction films obtained interpreted reduction of ankle dislocation. Orthopedics was notified in the ED. Patient was admitted due to unlikely ability to ambulate on crutches given instability and morbid obesity. She was free of pain at the time of admission. Family history noted sister with schizophrenia [facility] Home Medications amlodipine 5 mg PO DAILY 10/07/17 [History Last Taken 01/18/19] benztropine 0.5 mg PO BID 10/07/17 [History Last Taken 01/18/19] cholecalciferol (vitamin D3) [Vitamin D3] 1,000 unit PO DAILY 10/07/17 [History Last Taken Unknown] haloperidol 2.5 mg PO BID 10/07/17 [History Last Taken 01/18/19] loratadine 10 mg PO DAILY 04/02/18 [History Last Taken 01/18/19] escitalopram oxalate 10 mg PO QHS 01/15/19 [History Last Taken 01/18/19] Allergy/AdvReac Type Severity Reaction Status Date / Time Penicillins Allergy Unknown Verified 10/31/21 13:01 Social History Smoking Status: Current every day smoker tobacco type: cigarettes ROS ROS Narrative There was no nausea vomiting abdominal pain dysuria hematuria diarrhea constip ation, skin problems or joint problems besides the ankle fracture, no chest pain racing, cough, shortness of breath Rest of other pertinent positives in HPI per 10 pt ROS Vital Signs Vital Signs Vital Signs: 10/31/21 12:58 10/31/21 13:04 10/31/21 13:31 Temperature 98.0 F Temperature Source Oral Pulse Rate 63 65 Pulse Rate [1 (Initial Baseline)] Pulse Rate [3] Pulse Rate [4] Respiratory Rate 20 H 15 Respiratory Rate [1 (Initial Baseline)] Respiratory Rate [2] Respiratory Rate [3] Respiratory Rate [4] Respiratory Effort Normal Respiratory Depth Normal Blood Pressure 91/64 111/52 L Blood Pressure [1 (Initial Baseline)] Blood Pressure [3] Blood Pressure [4] Blood Pressure Mean 73 Pulse Ox 95 98 Oxygen Delivery Method Room Air Nasal Cannula Oxygen Delivery Method [1 (Initial Baseline)] Oxygen Delivery Method [2] Oxygen Delivery Method [3] Oxygen Delivery Method [4] Oxygen Flow Rate (L/min) 1 Oxygen Flow Rate (L/min) [1 (Initial Baseline)] Oxygen Flow Rate (L/min) [2] Oxygen Flow Rate (L/min) [3] Oxygen Flow Rate (L/min) [4] 10/31/21 13:32 10/31/21 13:42 10/31/21 13:46 Temperature Temperature Source Pulse Rate 66 65 Pulse Rate [1 (Initial Baseline)] 68 Pulse Rate [3] 71 Pulse Rate [4] 67 Respiratory Rate 20 H 19 H Respiratory Rate [1 (Initial Baseline)] 17 Respiratory Rate [2] 24 H Respiratory Rate [3] 22 H Respiratory Rate [4] 21 H Respiratory Effort Respiratory Depth Blood Pressure 133/65 H 126/64 H Blood Pressure [1 (Initial Baseline)] 111/52 L Blood Pressure [3] 132/68 H Blood Pressure [4] 133/65 H Blood Pressure Mean Pulse Ox 98 97 Oxygen Delivery Method Nasal Cannula Nasal Cannula Oxygen Delivery Method [1 (Initial Baseline)] Nasal Cannula Oxygen Delivery Method [2] Non-Rebreather Oxygen Delivery Method [3] Non-Rebreather Oxygen Delivery Method [4] Non-Rebreather Oxygen Flow Rate (L/min) 3 3 Oxygen Flow Rate (L/min) [1 (Initial Baseline)] 3 Oxygen Flow Rate (L/min) [2] 15 Oxygen Flow Rate (L/min) [3] 15 Oxygen Flow Rate (L/min) [4] 15 10/31/21 13:51 10/31/21 13:53 10/31/21 14:16 Temperature 98.2 F Temperature Source Temporal Pulse Rate 65 67 Pulse Rate [1 (Initial Baseline)] Pulse Rate [3] Pulse Rate [4] Respiratory Rate 17 14 Respiratory Rate [1 (Initial Baseline)] Respiratory Rate [2] Respiratory Rate [3] Respiratory Rate [4] Respiratory Effort Respiratory Depth Blood Pressure 124/63 H 124/68 H Blood Pressure [1 (Initial Baseline)] Blood Pressure [3] Blood Pressure [4] Blood Pressure Mean 86 Pulse Ox 95 98 Oxygen Delivery Method Room Air Room Air Room Air Oxygen Delivery Method [1 (Initial Baseline)] Oxygen Delivery Method [2] Oxygen Delivery Method [3] Oxygen Delivery Method [4] Oxygen Flow Rate (L/min) Oxygen Flow Rate (L/min) [1 (Initial Baseline)] Oxygen Flow Rate (L/min) [2] Oxygen Flow Rate (L/min) [3] Oxygen Flow Rate (L/min) [4] Weight Weight: 228 lb 6.382 oz Body Mass Index (BMI) 39.2 Physical Exam Const alert HEENT normocephalic and head/scalp atraumatic HEENT Narrative: poor dentition Eyes PERRL and EOMs intact bilaterally Resp normal respiratory effort Cardio regular rate and regular rhythm GI normal to inspection, nondistended, normoactive bowel sounds, soft to palpation and non-tender Extremity Extremity Narrative: Right ankle in cast. Skin no rashes or lesions noted and no wounds Neuro Sensorium / Orientation: awake and alert Psych affect normal Results Lab / Micro Data Result Diagrams: 10/31/21 13:50 10/31/21 13:50 Labs: Laboratory Results - last 24 hr 10/31/21 13:50: WBC 12.5 H, RBC 4.46, Hgb 13.4, Hct 41.0, MCV 91.9, MCH 30.0, MCHC 32.7, RDW Std Deviation 42.5, RDW Coeff of Jaspal 12.6, Plt Count 270, MPV 9.8, Immature Gran % (Auto) 0.200, Neut % (Auto) 67.3, Lymph % (Auto) 24.2, [place] % (Auto) 6.9, Eos % (Auto) 1.2, Baso % (Auto) 0.2, Absolute Neuts (auto) 8.4 H, Absolute Lymphs (auto) 3.02, Nucleated RBC % 0 10/31/21 13:50: Sodium 139, Potassium 3.7, Chloride 106, Carbon Dioxide 29.0, Anion Gap 4 L, BUN 10, Creatinine 0.86, Estim Creat Clear Calc 51.81, Est GFR (MDRD) Af Amer 84, Est GFR (MDRD) Non-Af 69, BUN/Creatinine Ratio 11.6, Glucose 117 H, Calcium 8.4 L Radiology Impression Ankle X-Ray 10/31/21 13:04 IMPRESSION: 1. Acute fractures of the medial and lateral malleoli 2. Acute fracture of the posterior tibial malleolus. 3. Mild lateral and posterior subluxation of the talus relation to the tibial plafond is present. Electronically Signed: Med Walker MD at 13:52 EDT Reading Location ID and State: [facility] / [place] , Service support , Assessment & Plan Assessment/Plan (1) Closed trimalleolar fracture of ankle: (2) Essential hypertension: (3) Schizophrenia: PLAN: Ankle fracture, Right side, due to fall. - Xray showing Acute fractures of the medial and lateral malleoli, posterior tibial malleolus. - NWB to right leg, PT consulted. OT Consulted. Case management - Pain management with Tylenol. Can esculate further with assistance - Activity with assistance. - Incentive spirometry. - Orthopedics were contacted in the ED - consult placed. Will need further recommendations usp. HTN - Resume Amlodipine 5 mg daily, Schizophrenia - Patient states controlled at baseline and on medications which were resumed - Benztropine and Haldol BID We discussed full CODE STATUS, as patient chooses full code upon our discussion Will resume regular diet and DVT prophylaxis with Lovenox daily Tiago Edmondson MD Charges/Coding Visit Charges OBSV E&M: 15722 Initial observation care L2
--- NOTE | 2021-10-31 15:11 | CM.ED ---
JOSE MIGUEL was contacted by Hospitalist Debo inquiring if [facility] could [facility] to the [facility]. JOSE MIGUEL reviewed the [facility] address and the [facility] is affiliated with [facility]. advised that patient has a fracture and a splint. MD will keep this television writer updated. JOSE MIGUEL called [facility] and spoke to Meghan. JOSE MIGUEL inquired as if patient could return to the [facility] with fractured ankle and splint. 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 JOSE MIGUEL noted that patient is being admitted. JOSE MIGUEL spoke to nurse discharge planner Charlotte who stated that patient will be evaluated to see if she needs surgery and for PT/OT. JOSE MIGUEL called Meghan at [facility] . She said that he delbert Rosas talked to someone and said that patient had rolled her ankle and may need PT. Meghan said that there are steps in the [facility]. JOSE MIGUEL advised patient is being admitted to [facility] and provided the phone number for [facility]. Plan: Admit Charity Caitlyn POLANCO
--- NOTE | 2021-10-31 15:30 | CM.ED ---
JOSE MIGUEL made fax referral to Paula Alberts at [facility]. Confirmation fax received. Charity POLANCO
[2021-10-31] MEDS: Benztropine Mesylate 0.5 MG TABLET PO (21:24)
[2021-10-31] MEDS: Haloperidol 5 MG Tablet 2.5 MG PO (21:27)
[2021-10-31] MEDS: Escitalopram Oxalate 10 MG Tablet PO (21:27)
[2021-11-01] VITALS (12 sets, daily range): BP systolic 124–168; BP diastolic 59–98; PULSE 79–110; RESP 16–20; TEMP 36.3–36.8; O2SAT 91–97; BMI 37.9
[2021-11-01] MEDS: Acetaminophen 325 MG Tablet 650 MG PO (04:28)
--- NOTE | 2021-11-01 05:00 | EKG12_ITS ---
Test Reason : PRE-OP Blood Pressure : / mmHG Vent. Rate : 073 BPM Atrial Rate : 073 BPM P-R Int : 176 ms QRS Dur : 070 ms QT Int : 370 ms P-R-T Axes : 064 036 115 degrees QTc Int : 407 ms Normal sinus rhythm T wave abnormality, consider anterolateral ischemia Abnormal ECG When compared with ECG of 10-OCT-2017 06:14, Inverted T waves have replaced nonspecific T wave abnormality in Lateral leads Confirmed by ZOE PURVIS, HARVEY ([id number]), technical writer and editor ENEIDA LARA ([id number]) on 11/03/2021 6:51:34 AM Referred By: TIANA Confirmed By:HARVEY ENRIQUEZ MD
[2021-11-01 06:20] LABS: Absolute Lymphocyte Count 3.59 X10^3/uL (0.83-4.51); Absolute Neutrophil Count 10.7 X10^3/uL (2.0-7.7); Basophil# 0.04 X10^3/uL; Basophil% 0.3 % (0-1); Eosinophils% 0.6 % (0-5); Hematocrit 41.4 % (37-47); Hemoglobin 13.6 g/dL (12.0-15.0); Lymphocyte # 3.59 X10^3/ul (0.83-4.51); Lymphocyte % 22.9 % (19-41); Mean Corp Hgb Conc 32.9 g/dL (32-36); Mean Corpuscular Hgb 30.2 pg (27.0-32.0); Mean Platelet Vol. 10.7 fl (6.2-12.0); Monocyte% 7.7 % (0-10); NRBC Flagged by Analyzer 0 % (0-5); Neutrophil # 10.68 X10^3/uL (2.7-7.7); Neutrophil % 68.2 % (47-70); Platelet Count 280 K/mm3 (150-450); RBC Distribution Width CV 12.5 % (11.6-14.6); RBC Distribution Width SD 42.2 fl (35.1-43.9); White Blood Count 15.7 K/mm3 (4.4-11.0)
[2021-11-01] MEDS: Haloperidol 5 MG Tablet 2.5 MG PO ×2 (06:27→21:23)
[2021-11-01] MEDS: Benztropine Mesylate 0.5 MG TABLET PO ×2 (06:28→21:23)
--- NOTE | 2021-11-01 06:56 | CON.PCM_ITS ---
Assessment & Plan Assessment/Plan (1) Closed trimalleolar fracture of ankle: PLAN: Assessment: Right trimalleolar ankle fracture in a schizophrenic patient who is a smoker Natural history of the disease process was discussed the patient. The unstable nature of the fracture was discussed the patient. At this time I explained the patient we should move forward with open reduction internal fixation. She does have an allergy to penicillin which is somewhat unknown however appears to be related to tongue swelling. Because of this we will use clindamycin preoperatively for infection prophylaxis. Risks of the procedure were discussed the patient including but onto blood loss, DVTs, PEs, nervous damage, infection, the risk of anesthesia including loss of life. Effects of none union, malunion and hardware failure were discussed the patient as well. I discussed the patient that she should continue to maintain good control of her schizophrenia is failure to comply with postoperative recommendations could lead to failure of a surgical intervention. Additionally patient has signed consent for possible external fixator if soft tissues are not appropriate for surgical intervention today. Her swelling appears appropriate however she is in a splint we will examine the skin once the splint is removed. Patient demonstrates understanding of the plan she is n.p.o. and would like to proceed with surgery this morning. Patient is agreeable and is able to consent today. Postoperative plan was discussed at length with patient including nonweightbearing for at least 6 weeks. (2) Tobacco dependence: PLAN: Cessation and associated complications related to the surgery were discussed with the patient. (3) Schizophrenia: PLAN: Managed per medicine service (4) Essential hypertension: PLAN: Management per medicine service (5) History of venous thromboembolism: PLAN: Will read stratify and recommend appropriate DVT prophylaxis postoperatively HPI Consult Data Date of Consult: 11/01/21 HPI Narrative Reason for Consultation: Right ankle pain HPI Narrative: AMARJIT ARREOLA, is a 71 F with history of schizophrenia and essential hypertension as well as tobacco use who presents with right ankle pain. Patient reports her mental health disease is stable and she lives in a assisted. She was walking in the gravel yesterday when she twisted her ankle. Current pain is 10 out of 10 at its worst. Worse with motion better with immobilization and splinting. She denies any associated numbness and tingling at this time. She is able to wiggle her toes. 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 She states this was in her leg however, she is a poor historian. Currently she is unable to bear weight. She was seen in the emergency department last night and treated with splinting. She did have subluxation of the ankle and it postreduction film shows adequate reduction at this time. She was noted to have a trimalleolar ankle fracture. She normally ambulates that a walker or cane and functions independently. Patient denies any history of anesthesia complications. She does report that she has penicillin allergy from when she was a child penicillin allergy was swelling of the tongue per her report. Assessment: Right trimalleolar ankle fracture in a schizophrenic patient who is a smoker Natural history of the disease process was discussed the patient. The unstable nature of the fracture was discussed the patient. At this time I explained the patient we should move forward with open reduction internal fixation. She does have an allergy to penicillin which is somewhat unknown however appears to be related to tongue swelling. Because of this we will use clindamycin preoperatively for infection prophylaxis. Risks of the procedure were discussed the patient including but onto blood loss, DVTs, PEs, nervous damage, infection, the risk of anesthesia including loss of life. Effects of none union, malunion and hardware failure were discussed the patient as well. I discussed the patient that she should continue to maintain good control of her schizophrenia is failure to comply with postoperative recommendations could lead to failure of a surgical intervention. Additionally patient has signed consent for possible external fixator if soft tissues are not appropriate for surgical intervention today. Her swelling appears appropriate however she is in a splint we will examine the skin once the splint is removed. Patient demonstrates understanding of the plan she is n.p.o. and would like to proceed with surgery this morning. Patient is agreeable and is able to consent today. Postoperative plan was discussed at length with patient including nonweightbearing for at least 6 weeks. [facility] Medical History (Updated 11/01/21 @ 08:[address] Ronny Hawley MD) VTE (venous thromboembolism) Medical History unable to obtain Home Medications amlodipine 5 mg PO DAILY 10/07/17 [History Last Taken 10/31/21] benztropine 0.5 mg PO DAILY 10/07/17 [History Last Taken 10/31/21] cholecalciferol (vitamin D3) [Vitamin D3] 1,000 unit PO DAILY 10/07/17 [History Last Taken 10/31/21] haloperidol 2.5 mg PO BID 10/07/17 [History Last Taken 10/31/21] loratadine 10 mg PO DAILY PRN 04/02/18 [History Last Taken 01/18/19] escitalopram oxalate 10 mg PO QHS 01/15/19 [History Last Taken 10/31/21] Allergy/AdvReac Type Severity Reaction Status Date / Time Penicillins Allergy Unknown Verified 10/31/21 13:01 Family History other other (Noncontributory) Surgical History H/O: hysterectomy Social History housing: other details: assisted Smoking Status: Current every day smoker tobacco type: cigarettes ROS Constitutional Constitutional: Reports systems reviewed and no addt'l complaints, except as documented Eyes Eyes: Reports systems reviewed and no addt'l complaints, except as documented ENT HEENT: Reports systems reviewed and no addt'l complaints, except as documented Cardiovascular Cardiovascular: Reports systems reviewed and no addt'l complaints, except as documented Respiratory/Chest Respiratory/Chest: Reports systems reviewed and no addt'l complaints, except as documented Gastrointestinal Gastrointestinal: Reports systems reviewed and no addt'l complaints, except as documented Genitourinary Genitourinary: Reports systems reviewed and no addt'l complaints, except as documented Musculoskeletal Musculoskeletal: Reports systems reviewed and no addt'l complaints, except as documented Integumentary Integumentary: Reports systems reviewed and no addt'l complaints, except as documented Neurologic Neurologic: Reports systems reviewed and no addt'l complaints, except as documented Psychiatric Psychiatric: Reports systems reviewed and no addt'l complaints, except as documented Endocrine Endocrinology: Reports systems reviewed and no addt'l complaints, except as documented Hematologic/Lymphatic Hematologic/Lymphatic: Reports systems reviewed and no addt'l complaints, except as documented Allergic/Immunologic Allergic/Immunologic: Reports systems reviewed and no addt'l complaints, except as documented Physical Exam Const alert, oriented x3 and average body habitus General Appearance: cooperative and well developed Orientation / Consciousness: awake, oriented to person, oriented to place and oriented to time Nutritional Appearance: obese HEENT normocephalic Head and Scalp: normal to inspection Eyes PERRL Neck No nuchal rigidity Resp normal respiratory effort Cardio no JVD GI non-distended Extremity Extremity Narrative: Right lower extremity: Splint is intact. Swelling of the digits is minimal. Digits are warm and pink with brisk cap refill. Sensations intact light touch supers peroneal, deep peroneal and tibial nerve distributions. Patient wiggles all digits. Moderate tenderness over the lateral ankle through splint. Neuro oriented x3 Psych cooperative Lab / Micro Data Result Diagrams: 11/01/21 05:17 10/31/21 13:50 Labs: Laboratory Results - last 24 hr 10/31/21 13:50: WBC 12.5 H, RBC 4.46, Hgb 13.4, Hct 41.0, MCV 91.9, MCH 30.0, MCHC 32.7, RDW Std Deviation 42.5, RDW Coeff of Jaspal 12.6, Plt Count 270, MPV 9.8, Immature Gran % (Auto) 0.200, Neut % (Auto) 67.3, Lymph % (Auto) 24.2, [place] % (Auto) 6.9, Eos % (Auto) 1.2, Baso % (Auto) 0.2, Absolute Neuts (auto) 8.4 H, Absolute Lymphs (auto) 3.02, Nucleated RBC % 0 10/31/21 13:50: Sodium 139, Potassium 3.7, Chloride 106, Carbon Dioxide 29.0, Anion Gap 4 L, BUN 10, Creatinine 0.86, Estim Creat Clear Calc 51.81, Est GFR (MDRD) Af Amer 84, Est GFR (MDRD) Non-Af 69, BUN/Creatinine Ratio 11.6, Glucose 117 H, Calcium 8.4 L 11/01/21 05:17: WBC 15.7 H, RBC 4.50, Hgb 13.6, Hct 41.4, MCV 92.0, MCH 30.2, MCHC 32.9, RDW Std Deviation 42.2, RDW Coeff of Jaspal 12.5, Plt Count 280, MPV 10.7, Immature Gran % (Auto) 0.300, Neut % (Auto) 68.2, Lymph % (Auto) 22.9, [place] % (Auto) 7.7, Eos % (Auto) 0.6, Baso % (Auto) 0.3, Absolute Neuts (auto) 10.7 H, Absolute Lymphs (auto) 3.59, Nucleated RBC % 0 Radiology Impression Ankle X-Ray 10/31/21 13:04 IMPRESSION: 1. Acute fractures of the medial and lateral malleoli 2. Acute fracture of the posterior tibial malleolus. 3. Mild lateral and posterior subluxation of the talus relation to the tibial plafond is present. Electronically Signed: Med Walker MD at 13:52 EDT , Ankle X-Ray 10/31/21 13:43 IMPRESSION: Interval reduction of tibiotalar joint with improved alignment of fractures the distal fibula and medial malleolus. Electronically Signed: Tarik Chavez MD at 14:42 EDT ,
--- NOTE | 2021-11-01 07:00 | RAD_ITS ---
STUDY: X-RAY - RIGHT ANKLE REASON FOR EXAM: Female, 71 years old. ORIF TECHNIQUE: 3 view(s) of the ankle. COMPARISON: 10/31/2021 FINDINGS: Fluoroscopy of the right ankle was utilized and operating room during open reduction internal fixation of fractures of the distal fibula and medial malleolus with hardware.. RAD/Ankle min 3 Views IMPRESSION: Fluoroscopy during open reduction internal fixation of fractures the medial malleolus and distal fibula. Electronically Signed: Tarik Chavez MD at 9:14 EDT ,
--- NOTE | 2021-11-01 07:02 | PN.HOSP_ITS ---
Subjective Subjective Feels well postoperatively. Objective Data Objective Data Vital Signs: Vital Signs Temp Pulse Resp BP Pulse Ox 36.8 C 87 16 142/88 H 94 11/01/21 06:21 11/01/21 06:21 11/01/21 06:21 11/01/21 06:21 11/01/21 06:21 Oxygen Flow Rate (L/min) [4] 15 Oxygen Flow Rate (L/min) [3] 15 Oxygen Flow Rate (L/min) [2] 15 Oxygen Flow Rate (L/min) [1 ( 3 Initial Baseline)] Oxygen Flow Rate (L/min) 3 Oxygen Delivery Method [4] Non-Rebreather Oxygen Delivery Method [3] Non-Rebreather Oxygen Delivery Method [2] Non-Rebreather Oxygen Delivery Method [1 ( Nasal Cannula Initial Baseline)] Oxygen Delivery Method Room Air Weight: 100.3 kg Body Mass Index (BMI) 37.9 Intake & Output: Intake and Output for Last 24 Hours 10/30/21 10/31/21 11/01/21 23:59 23:59 23:59 Output Total 200 / 200 350 / 350 Balance -200 / -200 -350 / -350 Lab / Micro Data Result Diagrams: 11/01/21 05:17 10/31/21 13:50 Labs: Laboratory Results - last 24 hr 10/31/21 13:50: WBC 12.5 H, RBC 4.46, Hgb 13.4, Hct 41.0, MCV 91.9, MCH 30.0, MCHC 32.7, RDW Std Deviation 42.5, RDW Coeff of Jaspal 12.6, Plt Count 270, MPV 9.8, Immature Gran % (Auto) 0.200, Neut % (Auto) 67.3, Lymph % (Auto) 24.2, [place] % (Auto) 6.9, Eos % (Auto) 1.2, Baso % (Auto) 0.2, Absolute Neuts (auto) 8.4 H, Absolute Lymphs (auto) 3.02, Nucleated RBC % 0 10/31/21 13:50: Sodium 139, Potassium 3.7, Chloride 106, Carbon Dioxide 29.0, Anion Gap 4 L, BUN 10, Creatinine 0.86, Estim Creat Clear Calc 51.81, Est GFR (MDRD) Af Amer 84, Est GFR (MDRD) Non-Af 69, BUN/Creatinine Ratio 11.6, Glucose 117 H, Calcium 8.4 L 11/01/21 05:17: WBC 15.7 H, RBC 4.50, Hgb 13.6, Hct 41.4, MCV 92.0, MCH 30.2, MCHC 32.9, RDW Std Deviation 42.2, RDW Coeff of Jaspal 12.5, Plt Count 280, MPV 10.7, Immature Gran % (Auto) 0.300, Neut % (Auto) 68.2, Lymph % (Auto) 22.9, [place] % (Auto) 7.7, Eos % (Auto) 0.6, Baso % (Auto) 0.3, Absolute Neuts (auto) 10.7 H, Absolute Lymphs (auto) 3.59, Nucleated RBC % 0 Radiography Diagnostic Testing: Radiology Impression Ankle X-Ray 10/31/21 13:04 IMPRESSION: 1. Acute fractures of the medial and lateral malleoli 2. Acute fracture of the posterior tibial malleolus. 3. Mild lateral and posterior subluxation of the talus relation to the tibial plafond is present. Electronically Signed: Med Walker MD at 13:52 EDT , Ankle X-Ray 10/31/21 13:43 IMPRESSION: Interval reduction of tibiotalar joint with improved alignment of fractures the distal fibula and medial malleolus. Electronically Signed: Tarik Chavez MD at 14:42 EDT , Physical Exam Const alert and no apparent distress Resp normal respiratory effort, no retractions, no use of accessory muscles and clear to auscultation bilaterally Cardio regular rate, regular rhythm, S1 normal heart sound and S2 normal heart sound GI normal to inspection, nondistended, normoactive bowel sounds and soft to palpation Extremity Extremity Narrative: right leg casted. normal cap refil. Assessment & Plan Assessment/Plan (1) Closed trimalleolar fracture of ankle: PLAN: 1. trimalleolar fracture * s/p fall * reduced in ED * Non weight bearing for 6 weeks, per orthopaedics. 2 weeks post op will be transferred to a boot. * s/p ORIF 11/01 * pain control * check 25 OH-d level 2. HTN * fair control * continue amlodipine 3. Schizophrenia * continue medications benztropine, haloperidol, escitalopram 4. Leukocytosis * likely reactive, though has been high in past 5. VTE prophylaxis: * high risk given ankle fracture. * apixaban for 2 weeks then 2 weeks of ASA BID 6. Disposition: * TBD post operative and therapy evals Charges/Coding Visit Charges Inpatient E&M: 38943 Subs Hosp L2
[2021-11-01] MEDS: Clindamycin 900 MG/50 ML BAG 75 MG IV (07:25)
--- NOTE | 2021-11-01 08:54 | OP.PCM_ITS ---
Report of Operation Date of Procedure: 11/01/21 Pre-Operative Diagnosis: Right trimalleolar ankle fracture Post-Operative Diagnosis: Right trimalleolar ankle fracture Surgery/Procedure Performed:: Open reduction internal fixation right trimalleolar ankle fracture, did not require posterior mall or fixation Stress exam under fluoroscopy right ankle Description of Surgical Findings:: Stable syndesmosis. Well reduced fracture. Poor bone quality. Surgeon: Ronny Hawley top hat body maker: Anna Marie Guzman Type of Anesthesia: General Anesthesiologist: Alix Bustillos Specimen's removed: NONE Estimated Blood Loss (mL): 10 Fluids Replaced: 1 L crystalloid Description of Procedure: On the date of the procedure patient was brought to the preoperative area where she was seen and evaluated. After consenting the patient for surgery she was brought back to the operating room. Risk and benefits of the procedure were discussed the patient as noted in the consultation. Patient was agreeable to the procedure and wished to proceed. Upon entering the recovery room she was transferred the table. After patient was anesthetized and appropriate comfortable all bony prominences identified well-padded. Splint was removed. Skin was checked. Skin was appropriate no skin abrasions or open fractures. Swelling was appropriate and patient had positive wrinkle test. Based on this we elected to proceed with open reduction internal fixation. Bump was placed underneath the right hip. Right leg was elevated for x-rays. Right lower extremity received a tourniquet on the upper thigh. Right lower extremities and prepped in a sterile fashion while the surgeon scrubbed. Upon reentering the room the right lower extremity was draped in a standard orthopedic fashion. Incisions were marked out for medial & lateral incisions. A timeout was called and everyone agreed upon the side, the site, the procedure to be performed, patient identity and antibiotics given. At this time the Esmarch bandage was used to exsanguinate the extremity and tourniquet was placed up to 250 mmHg. Incision was then made over the lateral ankle as we carefully dissected down to the fracture. After identify the fracture a reduction clamp w as used to reduce the fracture and live x-ray was used to verify fracture reduction. Compression screw was placed with a 3 5 screw with a lag screw by technique fashion. After the screw was placed the clamp was removed and a plate was placed over the lateral ankle. Next fixation was done with a proximal and distal screw to the fracture. After the plate was appropriately placed live x- ray was used to verify the plate placement. We then placed 2 additional locking screws distally with 1 more cancellous screw distally. 2 additional locking screws were placed proximally to the fracture. Live x-ray was used to verify plate placement and fracture reduction and the fracture remained stable. We then directed our attention medially where incision was made over the medial malleolus. Blunt dissection was taken down to the fracture fracture was identified and reduced. After reducing the fracture to K wires were placed to guide the screws and hold the fracture reduction. Once we are happy with K wire placement to 40 mm partially-threaded screws were selected the anterior screw past well. The posterior screw screw to the lateral cortex. We then redirected the guidewire and placed the screw into the tibial bone. Once this was done live x-ray was used to verify fracture reduction and screw fixation. Once were happy with this particular final x-rays. A AP and mortise view were taken. After taking the original mortise view external stress was placed on the ankle and the mortise remained intact. This was her stress examination under fluoroscopy. After this was completed and we are happy with our appropriate reduction ankle remained stable. There was a small posterior malleolus fragment did not require fixation. Wounds were copiously irrigated out normal saline. 0 Vicryl was used to close the fascia over the lateral plate. 2-0 Vicryl and 3-0 Monocryl were used for final skin closure. Steri-Strips were placed. Xeroform dressing was placed. Sterile dressing was placed. Tourniquet was let down. Well-padded splint was placed with the foot in neutral position. Patient was awakened by anesthesia and transferred to PACU for recovery. Postop plan: Patient will be nonweightbearing for a total of 6 weeks. We will remove the splint and begin range of motion exercises at 2 weeks postop she will be transferred to a boot. With appropriate healing we will begin weightbearing at 6 weeks postoperatively and wean out of the boot from there. Based on patient's previous history of VTE I would like to place the patient on 2 weeks of Xarelto followed by 2 weeks of 81 mg aspirin twice daily for DVT prophylaxis. Grafts/Implants Used: NoteVault locking distal fibula plate Admit VTE Documentation VTE Present on Admission: No VTE Mechan Device Prophylaxis: SCD's VTE Pharm Prophylaxis ordered?: Yes
[2021-11-01] MEDS: Lactated Ringers 1,000 ML 125 ML IV (09:00)
--- NOTE | 2021-11-01 09:03 | RAD_ITS ---
STUDY: X-RAY - RIGHT ANKLE REASON FOR EXAM: Female, 71 years old. frx -- in pacu please TECHNIQUE: 3 view(s) of the ankle. COMPARISON: 10/31/2021 FINDINGS: Interval open reduction internal fixation of fracture the distal fibula with a lateral plate and screws. Interval open reduction internal fixation of fracture the medial malleolus with 2 screws. Normal tibiotalar articulation and ankle mortise. Normal visualized talus and calcaneus. The visualized subtalar, talonavicular, calcaneocuboid and tarsal articulations are normal. Plaster cast which obscures soft tissue and bony detail. RAD/Ankle min 3 Views IMPRESSION: Interval open reduction internal fixation of fractures the medial malleolus and distal fibula. Electronically Signed: Tarik Chavez MD at 9:57 EDT ,
[2021-11-01] MEDS: Loratadine 10 MG Tablet PO (10:15)
[2021-11-01] MEDS: Enoxaparin 40 MG/0.4 ML Syringe SC (10:15)
[2021-11-01] MEDS: amLODIPine 5 MG Tablet PO (10:15)
[2021-11-01] MEDS: Clindamycin 600 MG/50 ML BAG 100 MG IV ×3 (13:17→23:09)
[2021-11-01] MEDS: Escitalopram Oxalate 10 MG Tablet PO (21:23)
[2021-11-02] VITALS (8 sets, daily range): BP systolic 125–163; BP diastolic 53–84; PULSE 77–90; RESP 16–18; TEMP 36.4–36.8; O2SAT 93–98
[2021-11-02] MEDS: Rivaroxaban 10 MG Tablet PO (04:47)
[2021-11-02 05:53] LABS: Absolute Lymphocyte Count 2.49 X10^3/uL (0.83-4.51); Basophil# 0.02 X10^3/uL; Basophil% 0.1 % (0-1); Hemoglobin 12.9 g/dL (12.0-15.0); Lymphocyte # 2.49 X10^3/ul (0.83-4.51); Lymphocyte % 12.5 % (19-41); Mean Corp Hgb Conc 32.3 g/dL (32-36); Mean Corpuscular Hgb 29.7 pg (27.0-32.0); Mean Platelet Vol. 10.7 fl (6.2-12.0); Monocyte# 1.31 X10^3/uL; Monocyte% 6.6 % (0-10); NRBC Flagged by Analyzer 0 % (0-5); Neutrophil # 16.01 X10^3/uL (2.7-7.7); Neutrophil % 80.2 % (47-70); Platelet Count 281 K/mm3 (150-450); RBC Distribution Width CV 12.1 % (11.6-14.6); RBC Distribution Width SD 41.1 fl (35.1-43.9); Red Blood Count 4.35 M/mm3 (4.2-5.4)
[2021-11-02 06:27] LABS: Anion Gap 7 (5-15); BUN 12 mg/dL (7-18); BUN/Creat Ratio 20.9 RATIO (10-20); Calcium,Total 8.5 mg/dL (8.5-10.1); Chloride 102 mmol/L (98-107); Creatinine, Serum 0.57 mg/dL (0.55-1.02); EST Glomerular Filtration Rate 110 mL/min (>60); Est Glom Filt Rate - Afr Amer 133 mL/min (>60); Estimated Creatinine Clearance 44.56 ml/min; Glucose 103 mg/dL (74-106); Potassium 4.7 mmol/L (3.5-5.1); Sodium Level 138 mmol/L (136-145)
--- NOTE | 2021-11-02 07:12 | PN.HOSP_ITS ---
Subjective Subjective Feels well. Denies ankle pain. Objective Data Objective Data Vital Signs: Vital Signs Temp Pulse Resp BP Pulse Ox 36.6 C 83 16 126/61 H 94 11/02/21 06:00 11/02/21 06:00 11/02/21 06:00 11/02/21 06:00 11/02/21 06:00 Oxygen Flow Rate (L/min) [4] 15 Oxygen Flow Rate (L/min) [3] 15 Oxygen Flow Rate (L/min) [2] 15 Oxygen Flow Rate (L/min) [1 ( 3 Initial Baseline)] Oxygen Flow Rate (L/min) 2 Oxygen Delivery Method [4] Non-Rebreather Oxygen Delivery Method [3] Non-Rebreather Oxygen Delivery Method [2] Non-Rebreather Oxygen Delivery Method [1 ( Nasal Cannula Initial Baseline)] Oxygen Delivery Method Nasal Cannula Weight: 100.3 kg Body Mass Index (BMI) 37.9 Intake & Output: Intake and Output for Last 24 Hours 10/31/21 11/01/21 11/02/21 23:59 23:59 23:59 Intake Total 1270.00 / 1270.00 50 / 50 Output Total 200 / 200 1600 / 1600 400 / 400 Balance -200 / -200 -330.00 / -330.00 -350 / -350 Lab / Micro Data Result Diagrams: 11/02/21 04:37 11/02/21 04:37 Labs: Laboratory Results - last 24 hr 11/02/21 04:37: WBC 20.0 H, RBC 4.35, Hgb 12.9, Hct 40.0, MCV 92.0, MCH 29.7, MCHC 32.3, RDW Std Deviation 41.1, RDW Coeff of Jaspal 12.1, Plt Count 281, MPV 10.7, Immature Gran % (Auto) 0.600, Neut % (Auto) 80.2 H, Lymph % (Auto) 12.5 L, [place] % (Auto) 6.6, Eos % (Auto) 0.0, Baso % (Auto) 0.1, Absolute Neuts (auto) 16.0 H, Absolute Lymphs (auto) 2.49, Nucleated RBC % 0 11/02/21 04:37: Sodium 138, Potassium 4.7, Chloride 102, Carbon Dioxide 29.0, Anion Gap 7, BUN 12, Creatinine 0.57, Estim Creat Clear Calc 44.56, Est GFR (MDRD) Af Amer 133, Est GFR (MDRD) Non-Af 110, BUN/Creatinine Ratio 20.9 H, Glucose 103, Calcium 8.5 Radiography Diagnostic Testing: Radiology Impression Ankle X-Ray 11/01/21 07:00 IMPRESSION: Fluoroscopy during open reduction internal fixation of fractures the medial malleolus and distal fibula. Electronically Signed: Tarik Chavez MD at 9:14 EDT Reading Location ID and State: [id number] / [place] [facility] [employer] Tel , Service support , Ankle X-Ray 11/01/21 09:03 IMPRESSION: Interval open reduction internal fixation of fractures the medial malleolus and distal fibula. Electronically Signed: Tarik Chavez MD at 9:57 EDT Reading Location ID and State: [employer] / [place] [employer] Tel , Service support , Physical Exam Const alert and no apparent distress Cardio regular rate, regular rhythm, S1 normal heart sound and S2 normal heart sound GI normal to inspection, nondistended, normoactive bowel sounds, soft to palpation, non-tender and non-distended Extremity Extremity Narrative: Right ankle casted. Normal cap refill of the right lower extremity. Sensation intact in the right lower extremity. Neuro Sensorium / Orientation: awake and alert Psych affect normal Assessment & Plan Assessment/Plan (1) Closed trimalleolar fracture of ankle: PLAN: 1. trimalleolar fracture * s/p fall * reduced in ED * Non weight bearing for 6 weeks, per orthopaedics. 2 weeks post op will be transferred to a boot. * s/p ORIF 11/01 * pain control * check 25 OH-d level 2. HTN * fair control * continue amlodipine 3. Schizophrenia * continue medications benztropine, haloperidol, escitalopram 4. Leukocytosis * likely reactive, though has been high in past 5. VTE prophylaxis: * high risk given ankle fracture. * rivaroxaban for 2 weeks then 2 weeks of ASA BID 6. Disposition: * TBD pending therapy evals though I suspect the patient will require fci facility. If patient does require fci facility, there may be a prolonged approval process given her history of schizophrenia. Charges/Coding Visit Charges Inpatient E&M: 37427 Subs Hosp L2
--- NOTE | 2021-11-02 09:41 | PN.ORTHO_ITS ---
Subjective Subjective Patient sitting up in bed awake. Patient states pain is been very well managed at this time. Patient reports no pain in her right leg ankle or foot. Denies any numbness or tingling. Denies any calf pain. Patient has no complaints at this time, denies chest pain, shortness of breath, calf pain, nausea vomiting. Patient states she is ready for discharge. Objective Data Objective Data Vital Signs: Vital Signs Temp Pulse Resp BP Pulse Ox 97.9 F 83 16 126/61 H 96 11/02/21 06:00 11/02/21 06:00 11/02/21 06:00 11/02/21 06:00 11/02/21 08:14 Oxygen Flow Rate (L/min) [4] 15 Oxygen Flow Rate (L/min) [3] 15 Oxygen Flow Rate (L/min) [2] 15 Oxygen Flow Rate (L/min) [1 ( 3 Initial Baseline)] Oxygen Flow Rate (L/min) 2 Oxygen Delivery Method [4] Non-Rebreather Oxygen Delivery Method [3] Non-Rebreather Oxygen Delivery Method [2] Non-Rebreather Oxygen Delivery Method [1 ( Nasal Cannula Initial Baseline)] Oxygen Delivery Method Nasal Cannula Weight: 100.3 kg Body Mass Index (BMI) 37.9 Intake & Output: Intake and Output for Last 24 Hours 10/31/21 11/01/21 11/02/21 23:59 23:59 23:59 Intake Total 1270.00 / 1270.00 50 / 50 Output Total 200 / 200 1600 / 1600 400 / 400 Balance -200 / -200 -330.00 / -330.00 -350 / -350 Lab / Micro Data Result Diagrams: 11/02/21 04:37 11/02/21 04:37 Labs: Laboratory Results - last 24 hr 11/02/21 04:37: WBC 20.0 H, RBC 4.35, Hgb 12.9, Hct 40.0, MCV 92.0, MCH 29.7, MCHC 32.3, RDW Std Deviation 41.1, RDW Coeff of Jaspal 12.1, Plt Count 281, MPV 10.7, Immature Gran % (Auto) 0.600, Neut % (Auto) 80.2 H, Lymph % (Auto) 12.5 L, [place] % (Auto) 6.6, Eos % (Auto) 0.0, Baso % (Auto) 0.1, Absolute Neuts (auto) 16.0 H, Absolute Lymphs (auto) 2.49, Nucleated RBC % 0 11/02/21 04:37: Sodium 138, Potassium 4.7, Chloride 102, Carbon Dioxide 29.0, Anion Gap 7, BUN 12, Creatinine 0.57, Estim Creat Clear Calc 44.56, Est GFR (MDRD) Af Amer 133, Est GFR (MDRD) Non-Af 110, BUN/Creatinine Ratio 20.9 H, Glucose 103, Calcium 8.5 Radiography Diagnostic Testing: Radiology Impression Ankle X-Ray 11/01/21 09:03 IMPRESSION: Interval open reduction internal fixation of fractures the medial malleolus and distal fibula. Electronically Signed: Tarik Chavez MD at 9:57 EDT , Physical Exam Narrative Exam I found a pleasant obese patient lying in bed. Cranial nerves II through gross intact. Patient excellent range of motion of the upper extremities with good muscle tone and strength. Good motion of the bilateral hips bilateral knees left ankle and foot. Exam of the right lower leg, patient does have a posterior splint in place. The dressings are clean dry intact. Patient has good cap refill to the toes of the right foot. Patient has good sensation. No reported calf pain. No signs and symptoms of DVT. Patient is afebrile. Neurovascular she is otherwise intact. Assessment & Plan Assessment/Plan (1) History of venous thromboembolism: (2) Closed trimalleolar fracture of ankle: (3) Status post ORIF of fracture of ankle: PLAN: 1. Continue all pain medications as prescribed 2. Keep right leg elevated and iced. 3. Patient is remain nonweightbearing. 4. Patient will follow with Dr. Hawley in 2 weeks 5. Patient does have history of DVT. Patient will be on Xarelto for 2 weeks, followed by 2 additional weeks of aspirin 81 mg 1 p.o. every 12 hours for treatment of postop DVT prophylaxis
[2021-11-02 09:42] LABS: Vitamin D,25 Hydroxy 27.3 ng/mL
[2021-11-02] MEDS: Benztropine Mesylate 0.5 MG TABLET PO ×2 (10:16→21:24)
[2021-11-02] MEDS: Loratadine 10 MG Tablet PO (10:16)
[2021-11-02] MEDS: Enoxaparin 40 MG/0.4 ML Syringe SC (10:17)
[2021-11-02] MEDS: Haloperidol 5 MG Tablet 2.5 MG PO ×2 (10:17→21:24)
[2021-11-02] MEDS: amLODIPine 5 MG Tablet PO (10:17)
--- NOTE | 2021-11-02 11:57 | CASEMGMT ---
NEELAM CM in to discuss ARTIS form with patient. RN CM explained ARTIS form, patient voiced understanding. Pt signed form and filed in chart. Pt provided with a copy of signed ARTIS form. Patient had no further questions or concerns at this time.
--- NOTE | 2021-11-02 13:15 | CASEMGMT ---
Social Work SW to room to meet with patient and Mami Samrt [facility]. SW introduced self and role at [facility]. Pt voices understanding and consents to assessment. Pt resting in bed in no distress, alert and oriented and answers all questions appropriately. Care providers, pharmacy, and demographics verified. PCP: [facility] Specialists: Ariane Trujillo NP for psychiatry at [facility] Insurance: [facility] Prescription Benefit: yes Living Will/HPOA: No LNOK: Mami Smart CM at [facility]. Mami states no involved family Living Arrangements: Pt has lived in a mental health residential for the past 10 years. There is a flight of stairs into the house and the stairs once indoors as well. Pt states she is able to care for self (ambulation, bathing, dressing). She does share in the chores in the home and completes own laundry. Staff at home prepare meals and manage medications. [facility] is pt's Payee. CM or residential staff provide needed transportation. Transportation: CM or residential staff HHC/SNF: prior SNF [facility]: Schizophrenia. Pt confirms well controlled with medications and pt is compliant with med regiment. Narrative: Pt admitted with ankle fracture and ORIF. Pt is non weight bearing for 6 weeks and therefore unable to return to the residential as she cannot get up and down steps. Pt is agreeable to SNF placement. SW provided a list of SNF providers including quality and resource use data and consistent with the patient's preferred geographic region, medical needs and insurance network. Pt [facility] provider is [facility] Phone call to [facility] and they have beds available. Referral faxed. SW will await determination on acceptance. Pt will need insurance authorization. SW did complete PAS/RR. Due to mental health, pt does require a categorical determination from the [place] Department of Mental Health. Information has been submitted. Pt cannot transfer to SNF until Level II determination is complete. PLAN: [facility], Pending Level II Categorical Determination YARELI Quesada
--- NOTE | 2021-11-02 18:33 | CASEMGMT ---
Social Work [facility] is able to accept pt however, they do not allow smoking. JOSE MIGUEL met with pt and informed of this. Pt would like to go to a smoking facility. SW provided pt with information and pt now choosing [facility]. Referral sent to [facility]. Will await determination of acceptance. YARELI Quesada
[2021-11-02] MEDS: oxyCODONE 5 MG Tablet PO (20:16)
[2021-11-02] MEDS: Acetaminophen 325 MG Tablet 650 MG PO (20:16)
[2021-11-02] MEDS: Escitalopram Oxalate 10 MG Tablet PO (21:24)
[2021-11-03 03:26] VITALS: BP 155/74; PULSE 91; RESP 18; TEMP 37; O2SAT 93
[2021-11-03] MEDS: Rivaroxaban 10 MG Tablet PO (05:37)
[2021-11-03 09:15] VITALS: BP 153/64; PULSE 81; RESP 17; TEMP 37.2; O2SAT 91
[2021-11-03] MEDS: Loratadine 10 MG Tablet PO (09:19)
[2021-11-03] MEDS: Haloperidol 5 MG Tablet 2.5 MG PO ×2 (09:19→21:22)
[2021-11-03] MEDS: amLODIPine 5 MG Tablet PO (09:19)
[2021-11-03] MEDS: Benztropine Mesylate 0.5 MG TABLET PO ×2 (09:19→21:22)
[2021-11-03] MEDS: Enoxaparin 40 MG/0.4 ML Syringe SC (09:19)
--- NOTE | 2021-11-03 13:36 | PN.HOSP_ITS ---
Subjective Subjective Patient seen and examined. She has no active complaints and had an uneventful night. Pain is well controlled. Review of systems otherwise negative. She is awaiting placement. Objective Data Objective Data Vital Signs: Vital Signs Temp Pulse Resp BP Pulse Ox 99.0 F 81 17 153/64 H 91 11/03/21 09:15 11/03/21 09:15 11/03/21 09:15 11/03/21 09:15 11/03/21 09:15 Oxygen Flow Rate (L/min) [4] 15 Oxygen Flow Rate (L/min) [3] 15 Oxygen Flow Rate (L/min) [2] 15 Oxygen Flow Rate (L/min) [1 ( 3 Initial Baseline)] Oxygen Flow Rate (L/min) 2 Oxygen Delivery Method [4] Non-Rebreather Oxygen Delivery Method [3] Non-Rebreather Oxygen Delivery Method [2] Non-Rebreather Oxygen Delivery Method [1 ( Nasal Cannula Initial Baseline)] Oxygen Delivery Method Room Air Weight: 221 lb 1.978 oz Body Mass Index (BMI) 37.9 Intake & Output: Intake and Output for Last 24 Hours 11/01/21 11/02/21 11/03/21 23:59 23:59 23:59 Intake Total 1270.00 / 1270.00 300 / 300 300 / 300 Output Total 1600 / 1600 1400 / 1400 500 / 500 Balance -330.00 / -330.00 -1100 / -1100 -200 / -200 Lab / Micro Data Result Diagrams: 11/02/21 04:37 11/02/21 04:37 Physical Exam Const alert, oriented x3 and no apparent distress Exam Limitations: no limitations HEENT head/scalp atraumatic and moist oral mucous membranes Head and Scalp: normocephalic Eyes PERRL, EOMs intact bilaterally and conjunctivae normal Neck no lymphadenopathy Resp normal respiratory effort, no retractions, no use of accessory muscles and clear to auscultation bilaterally Cardio regular rate, regular rhythm, S1 normal heart sound, S2 normal heart sound and no murmurs GI normal to inspection, nondistended, normoactive bowel sounds, soft to palpation, non-tender and non-distended Extremity Extremity Narrative: RLE in wrapped in cast. Peripheral Pulses: Yes pulses 2+ throughout Skin no rashes or lesions noted Neuro oriented x3, CN's II-XII intact bilaterally and moves all extremities Sensorium / Orientation: awake and alert Psych affect normal Assessment & Plan Assessment/Plan (1) Status post ORIF of fracture of ankle: (2) Closed trimalleolar fracture of ankle: PLAN: #Right trimalleolar fracture due to mechanical fall * s/p ORIF on 11/01/2021 * to be nonweight bearing for 6 weeks, and to be transferred to a boot 2 weeks post opn * on pain meds * orthopedics on board * PT/OT on board * fall precautions * #Hypertension: on amlodipine #Schizophrenia * on benztropine, haldol and escitalopram * DVT prophylaxis; on xarelto for 2 weeks, then to continue with 2 weeks of aspirin 325mg bid DVT prophylaxis: currently on xarelto. Disposition: awaiting placemen Charges/Coding Visit Charges Inpatient E&M: 56988 Subs Hosp L2
--- NOTE | 2021-11-03 14:57 | CASEMGMT ---
Social Work Pt has been accepted by [facility]. JOSE MIGUEL received call from Chrissy at [facility] and answered questions. Chrissy will call pt at 4pm for an evaluation. JOSE MIGUEL met with pt and informed that [facility] has accepted and that [facility] would be calling her. JOSE MIGUEL assisted pt in using phone. Pt agreeable to answer and speak with Chrissy. Phone call to [facility] and requested precert be started at this time. Plan: [facility], pending Level II evaluation and insurance precert YARELI Quesada
[2021-11-03 15:00] VITALS: BP 149/72; PULSE 93; RESP 16; TEMP 36.8; O2SAT 92
[2021-11-03 15:57] VITALS: O2SAT 92
[2021-11-03 20:20] VITALS: BP 142/72; PULSE 72; RESP 16; TEMP 36.8; O2SAT 94
[2021-11-03] MEDS: Escitalopram Oxalate 10 MG Tablet PO (21:22)
[2021-11-04 02:25] VITALS: BP 153/72; PULSE 88; RESP 18; TEMP 36.6; O2SAT 93
[2021-11-04] MEDS: Rivaroxaban 10 MG Tablet PO (05:56)
[2021-11-04 08:04] VITALS: O2SAT 94
[2021-11-04 09:00] VITALS: BP 150/79; PULSE 91; RESP 16; TEMP 36.8; O2SAT 93
[2021-11-04] MEDS: Enoxaparin 40 MG/0.4 ML Syringe SC (10:59)
[2021-11-04] MEDS: Haloperidol 5 MG Tablet 2.5 MG PO ×2 (10:59→22:15)
[2021-11-04] MEDS: Loratadine 10 MG Tablet PO (10:59)
[2021-11-04] MEDS: Benztropine Mesylate 0.5 MG TABLET PO ×2 (10:59→22:15)
[2021-11-04] MEDS: amLODIPine 5 MG Tablet PO (11:00)
--- NOTE | 2021-11-04 11:00 | NURSING ---
computers were not working correctly when meds were given, paper mar used.
--- NOTE | 2021-11-04 11:09 | PN.HOSP_ITS ---
Subjective Subjective Patient seen and examined. She had no complaints and had an uneventful night. She is awaiting placement. Objective Data Objective Data Vital Signs: Vital Signs Temp Pulse Resp BP Pulse Ox 98.3 F 91 16 150/79 H 93 11/04/21 09:00 11/04/21 09:00 11/04/21 09:00 11/04/21 09:00 11/04/21 09:00 Oxygen Flow Rate (L/min) [4] 15 Oxygen Flow Rate (L/min) [3] 15 Oxygen Flow Rate (L/min) [2] 15 Oxygen Flow Rate (L/min) [1 ( 3 Initial Baseline)] Oxygen Flow Rate (L/min) 2 Oxygen Delivery Method [4] Non-Rebreather Oxygen Delivery Method [3] Non-Rebreather Oxygen Delivery Method [2] Non-Rebreather Oxygen Delivery Method [1 ( Nasal Cannula Initial Baseline)] Oxygen Delivery Method Room Air Weight: 221 lb 1.978 oz Body Mass Index (BMI) 37.9 Intake & Output: Intake and Output for Last 24 Hours 11/02/21 11/03/21 11/04/21 23:59 23:59 23:59 Intake Total 300 / 300 300 / 300 Output Total 1400 / 1400 2200 / 2200 350 / 350 Balance -1100 / -1100 -1900 / -1900 -350 / -350 Lab / Micro Data Result Diagrams: 11/02/21 04:37 11/02/21 04:37 Physical Exam Const alert, oriented x3 and no apparent distress Exam Limitations: no limitations HEENT normocephalic, head/scalp atraumatic and moist oral mucous membranes Head and Scalp: normocephalic Eyes PERRL, EOMs intact bilaterally and conjunctivae normal Neck no lymphadenopathy Resp normal respiratory effort, no retractions, no use of accessory muscles and clear to auscultation bilaterally Cardio regular rate, regular rhythm, S1 normal heart sound, S2 normal heart sound and no murmurs GI normal to inspection, nondistended, normoactive bowel sounds, soft to palpation, non-tender and non-distended Extremity Extremity Narrative: RLE in wrapped in cast. Peripheral Pulses: Yes pulses 2+ throughout Skin no rashes or lesions noted and no wounds Neuro oriented x3, CN's II-XII intact bilaterally and moves all extremities Sensorium / Orientation: awake and alert Psych affect normal Assessment & Plan Assessment/Plan (1) Status post ORIF of fracture of ankle: (2) Closed trimalleolar fracture of ankle: PLAN: #Right trimalleolar fracture due to mechanical fall * s/p ORIF on 11/01/2021 * to be nonweight bearing for 6 weeks, and to be transferred to a boot 2 weeks post opn * on pain meds * orthopedics on board * PT/OT on board * fall precautions * #Hypertension: on amlodipine #Schizophrenia * on benztropine, haldol and escitalopram * DVT prophylaxis; on xarelto for 2 weeks, then to continue with 2 weeks of aspirin 325mg bid DVT prophylaxis: currently on xarelto. Disposition: awaiting placement Charges/Coding Visit Charges Inpatient E&M: 02933 Subs Hosp L2
--- NOTE | 2021-11-04 11:35 | CASEMGMT ---
Social Work [facility] states they do have precert and can accept pt when ready. SW met with pt who confirmed she did have interview with [facility] piping design specialist yesterday. SW is awaiting determination from [facility] for Level II evaluation prior to pt discharge to SNF. pt made aware that [facility] can accept and precert has been granted. [facility] updated to cancel referral. Plan: [facility], pending Level II evaluation results YARELI Quesada
[2021-11-04 15:47] VITALS: BP 146/87; PULSE 100; RESP 17; TEMP 36.9; O2SAT 100
[2021-11-04] MEDS: oxyCODONE 5 MG Tablet 10 MG PO (20:04)
[2021-11-04 20:23] VITALS: BP 152/71; PULSE 95; RESP 18; TEMP 37.1; O2SAT 93
[2021-11-04] MEDS: Escitalopram Oxalate 10 MG Tablet PO (22:15)
[2021-11-05 02:40] VITALS: BP 153/77; PULSE 86; RESP 18; TEMP 36.9; O2SAT 94
[2021-11-05] MEDS: Rivaroxaban 10 MG Tablet PO (05:20)
[2021-11-05 09:00] VITALS: BP 132/65; PULSE 81; RESP 16; TEMP 36.7; O2SAT 95
[2021-11-05] MEDS: Haloperidol 5 MG Tablet 2.5 MG PO (09:55)
[2021-11-05] MEDS: Loratadine 10 MG Tablet PO (09:55)
[2021-11-05] MEDS: Benztropine Mesylate 0.5 MG TABLET PO (09:55)
[2021-11-05] MEDS: amLODIPine 5 MG Tablet PO (09:55)
--- NOTE | 2021-11-05 10:08 | DS.PCM_ITS ---
Providers Date of Admission: 10/31/21 Primary Care Physician: Dr. Anthony Schwartz MD Consultations 10/31/21 16:56 Consult: Orthopedics Routine Consulting Provider: Ronny Hawley Reason for Consult: evalaute fracture and further follow up needs. EMERGENT Consult: No MD Notified: Yes Date Notified: 10/31/21 Time Notified: 14:33 Method of Notification: ED Physician Initiated Comments:: per ER MD notified and order by ortho for surgical cons Reason For Visit: RIGHT ANKLE FRACTURE Diagnosis Discharge Diagnosis (1) Status post ORIF of fracture of ankle: Status: Acute Code(s): Z98.890 - Other specified postprocedural states; Z87.81 - Personal history of (healed) traumatic fracture (2) Closed trimalleolar fracture of ankle: Status: Acute Code(s): S82.853A - Displaced trimalleolar fracture of unspecified lower leg, initial encounter for closed fracture Medications at Discharge Home Medications amlodipine 5 mg PO DAILY 10/07/17 benztropine 0.5 mg PO DAILY 10/07/17 cholecalciferol (vitamin D3) [Vitamin D3] 1,000 unit PO DAILY 10/07/17 haloperidol 2.5 mg PO BID 10/07/17 loratadine 10 mg PO DAILY PRN 04/02/18 escitalopram oxalate 10 mg PO QHS 01/15/19 aspirin 325 mg PO BID #28 tab 11/05/21 oxycodone 5 mg PO Q4H PRN PRN 3 Days #18 tab 11/05/21 rivaroxaban [Xarelto] 10 mg PO DAILY@0600 #14 tab 11/05/21 Hospital Course Operations - (ORIF of right ankle fracture) Procedures None Summary of Care Provided Minutes Spent on Discharge: 45 Hospital Course: Patient is a 71-year-old female with a past medical history as outlined was admitted through the ED on 10/31 2021 with a complaint of right ankle pain after mechanical fall. She slipped on loose gravel and twisted her ankle. She could not weight-bear afterwards. Imaging done showed fracture of the medial and lateral malleoli with posterior tibial malleolus. It was reduced in the ED and orthopedics was consulted. She had open reduction and internal fixation of the right trimalleolar fracture on 11/01/2021. She was put on Xarelto for DVT prophylaxis. Postop course was uncomplicated. He remained stable and was [facility]21. She was discharged on 2 weeks of Xarelto and then to continue with 2 weeks of aspirin for DVT prophylaxis. She is to be nonweightbearing for 6 weeks and then transferred to a boot for 2 weeks postop. She is follow-up with orthopedic surgery on outpatient basis. Patient seen and examined prior to discharge. She had no active complaints and had an uneventful night. Review of systems otherwise negative. Labs and vitals reviewed. Home medication reviewed and reconciled. Physical Exam Const alert, oriented x3 and no apparent distress General Appearance: cooperative, comfortable and well kempt Exam Limitations: no limitations HEENT normocephalic, head/scalp atraumatic, hearing grossly normal bilaterally and moist oral mucous membranes Eyes PERRL, EOMs intact bilaterally and conjunctivae normal Neck no lymphadenopathy Resp normal respiratory effort, no retractions, no use of accessory muscles and clear to auscultation bilaterally Cardio regular rate, regular rhythm, S1 normal heart sound, S2 normal heart sound and no murmurs GI normal to inspection, nondistended, normoactive bowel sounds, soft to palpation, non-tender and non-distended Extremity Extremity Narrative: RLE in wrapped in cast. Skin no rashes or lesions noted and no wounds Neuro oriented x3, CN's II-XII intact bilaterally and moves all extremities Sensorium / Orientation: awake and alert Psych affect normal Weight / BMI Weight Weight: 221 lb 1.978 oz Body Mass Index (BMI) 37.9 ABG / Lab / Microbiology Data Result Diagrams: 11/02/21 04:37 11/02/21 04:37 D/C Instructions Discharge Diet: Low fat / Low cholesterol Discharge Activity: Return to Normal Activity Weight Bearing Status: No weight bearing Call your doctor if you observe: Fever of 101 or Higher, Shortness of breath, Swelling in the ankles and Increased palpitations (irregular heartbeat) Meaningful Use Info Meaningful Use Diagnoses (Choose all that apply): None applicable Discharge Plan Admission Admit Date/Time: 10/31/21 14:29 Primary Reason for Your Visit: right tramalleolar fracture due to mechanical fall Attending Provider: Carolyn Ventura Primary Care Provider: Anthony Schwartz Consulting Providers: Ronny Hawley ; Tiago Edmondson ; Misbah Lane Instructions Patient Instructions: Ankle Fracture ORIF Discharge Orders/Prescriptions Prescriptions: New oxycodone 5 mg Tablet 5 mg PO Q4H PRN PRN (Reason: Pain Score 4-5) 3 Days Qty: 18 RF: 0 Xarelto 10 mg Tablet 10 mg PO DAILY@0600 Qty: 14 RF: 0 aspirin 325 mg tablet 325 mg PO BID Qty: 28 RF: 0 Continued haloperidol 5 MG tablet 2.5 mg PO BID RF: 0 amlodipine 5 MG tablet 5 mg PO DAILY RF: 0 benztropine 1 MG tablet 0.5 mg PO DAILY RF: 0 cholecalciferol (vitamin D3) [Vitamin D3] 1,000 UNIT capsule 1,000 unit PO DAILY RF: 0 loratadine 10 MG tablet 10 mg PO DAILY PRN (Reason: Allergy Symptoms) RF: 0 escitalopram oxalate 10 MG tablet 10 mg PO QHS RF: 0 Referrals / Follow Up: Ronny Hawley MD [STAFF PHYSICIAN] - Within 2 Weeks Anthony Schwartz MD [Primary Care Provider] - Within 2 Weeks Disposition Disposition (needs filled in before D/C Order can be placed): Detention Facility Charges/Coding Visit Charges Inpatient E&M: 04640 Disch Hosp
--- NOTE | 2021-11-05 10:27 | CASEMGMT ---
[facility] completed assessment and pt does meet qualifications for SNF placement. Physician notified that pt can discharge today. VM to [facility] informing pt will be discharging today. SW left VM with pt Billet Bed Operator Mami Smart and updated on discharge plan. Pt notified and agreeable. Plan: [facility], Skilled level of care YARELI Quesada
--- NOTE | 2021-11-05 10:30 | PCM.TXEXTCAR ---
Diet 11/01/21 10:13 Diet: Regular - General Is pt able to select menu?: No Routine Orders/Code Status Enema Type: Fleetz Enema Frequency: Daily PRN Suppository Type: Dulcolax 10mg Suppository Frequency: Daily PRN Wound(s) RIGHT LOWER LEG: Wound Type: Surgical Incision Therapies Weight Bearing: Non weight bearing Physical Therapy: Eval and Treat Occupational Therapy: Eval and Treat Problem/Diagnosis (1) Status post ORIF of fracture of ankle: Status: Acute (2) Closed trimalleolar fracture of ankle: Status: Acute Allergies/Procedures Done in Hospital Allergies Penicillins Allergy (Verified 10/31/21 13:01) Unknown IT'S MOLD THAT EATS YOUR BLOOD CELLS. Type of Care/Length of Stay Estimated LOS: Convalescent Care Less Than 30 days Type of Care Needed: Skilled Rehab Potential: Fair Prognosis: Fair Additional Orders/Day of Discharge Day of Discharge: 11/05/21 Discharge Plan Admission Admit Date/Time: 10/31/21 14:29 Primary Reason for Your Visit: right tramalleolar fracture due to mechanical fall Attending Provider: Carolyn Ventura Primary Care Provider: Anthony Schwartz Consulting Providers: Ronny Hawley ; Tiago Edmondson ; Misbah Lane Instructions Patient Instructions: Ankle Fracture ORIF Discharge Orders/Prescriptions Prescriptions: New oxycodone 5 mg Tablet 5 mg PO Q4H PRN PRN (Reason: Pain Score 4-5) 3 Days Qty: 18 RF: 0 Xarelto 10 mg Tablet 10 mg PO DAILY@0600 Qty: 14 RF: 0 aspirin 325 mg tablet 325 mg PO BID Qty: 28 RF: 0 Continued haloperidol 5 MG tablet 2.5 mg PO BID RF: 0 amlodipine 5 MG tablet 5 mg PO DAILY RF: 0 benztropine 1 MG tablet 0.5 mg PO DAILY RF: 0 cholecalciferol (vitamin D3) [Vitamin D3] 1,000 UNIT capsule 1,000 unit PO DAILY RF: 0 loratadine 10 MG tablet 10 mg PO DAILY PRN (Reason: Allergy Symptoms) RF: 0 escitalopram oxalate 10 MG tablet 10 mg PO QHS RF: 0 Referrals / Follow Up: Ronny Hawley MD [STAFF PHYSICIAN] - Within 2 Weeks Anthony Schwartz MD [Primary Care Provider] - Within 2 Weeks Disposition Disposition (needs filled in before D/C Order can be placed): [facility]
[2021-11-05 13:41] VITALS: BP 140/62; PULSE 84; RESP 16; TEMP 36.6; O2SAT 97
== END 2021-11-05 15:35 | disposition skilled nursing facility (03) ==
LOC: ED 13:45 → MS3 14:36
PROVIDERS: Anesthesiology; Specialist; Admitting Provider Hospitalist; Emergency Provider Emergency Medicine; PCP Family Medicine; Visit Provider Student in an Organized Health Care Education/Training Program
PROC: (CPT 27822; principal; 2021-11-01 07:15)
DX: S82.851A Displaced trimalleolar fracture of right lower leg, initial encounter for closed fracture (principal); F20.9 Schizophrenia, unspecified; E66.01 Morbid (severe) obesity due to excess calories; I10 Essential (primary) hypertension; F17.210 Nicotine dependence, cigarettes, uncomplicated; Y93.9 Activity, unspecified; Y99.9 Unspecified external cause status; W19.XXXA Unspecified fall, initial encounter; Y92.89 Other specified places as the place of occurrence of the external cause; Z79.899 Other long term (current) drug therapy; Z68.38 Body mass index [BMI] 38.0-38.9, adult; Z86.718 Personal history of other venous thrombosis and embolism
CPT/HCPCS: 27822; 01480; 64445; 36415; 73610; 76000; 80048; 82306; 85025; 87426; 93005; 96361; 96365; 96366; 96372; 96375; 97110; 97162; 97166; 97530; 97535; 99218; 99251; 99285; 99406; C1713; J7030; J7050; J7120; A4216; G0378; G0463; J2405

== ENCOUNTER 2022-03-24 14:40 | Inpatient (IN) | payer MEDICARE, MEDICAID, SELFPAY ==
[2022-03-24] VITALS (7 sets, daily range): BP systolic 116–150; BP diastolic 63–73; PULSE 103–120; RESP 18–24; TEMP 36.4–36.7; O2SAT 78–96; BMI 39.2; BMI 38.1
--- NOTE | 2022-03-24 14:47 | ED.RN ---
PT PRESENTS TO ER ON ROOM AIR AT THIS TIME, O2 REMOVED BY EMS UPON ARRIVAL TO ED. PT O2 SATS 78% ON ROOM AIR. 2L NC APPLIED AT THIS TIME.
[2022-03-24] MEDS: Albuterol 2.5 MG/3 ML VIAL.NEB. INHALATION (15:30)
[2022-03-24] MEDS: Ipratropium/Albuterol Sulfate 3 ML AMPUL.NEB INHALATION ×2 (15:37→19:49)
[2022-03-24 15:39] LABS: Absolute Lymphocyte Count 1.63 X10^3/uL (0.83-4.51); Absolute Neutrophil Count 20.8 X10^3/uL (2.0-7.7); Basophil# 0.04 X10^3/uL; Basophil% 0.2 % (0-1); Eosinophil# 0.06 X10^3/uL; Eosinophils% 0.2 % (0-5); Hematocrit 43.3 % (37-47); Hemoglobin 14.2 g/dL (12.0-15.0); Lymphocyte # 1.63 X10^3/ul (0.83-4.51); Lymphocyte % 6.8 % (19-41); Mean Corp Hgb Conc 32.8 g/dL (32-36); Mean Corpuscular Hgb 29.2 pg (27.0-32.0); Mean Corpuscular Volume 89.1 fL (81-99); Mean Platelet Vol. 10.4 fl (6.2-12.0); Monocyte# 1.37 X10^3/uL; Monocyte% 5.7 % (0-10); NRBC Flagged by Analyzer 0 % (0-5); Neutrophil # 20.81 X10^3/uL (2.7-7.7); Neutrophil % 86.4 % (47-70); POSITIVE DIFFERENTIAL YES; Platelet Count 316 K/mm3 (150-450); RBC Distribution Width CV 12.3 % (11.6-14.6); RBC Distribution Width SD 40.2 fl (35.1-43.9); Red Blood Count 4.86 M/mm3 (4.2-5.4); White Blood Count 24.1 K/mm3 (4.4-11.0)
--- NOTE | 2022-03-24 15:40 | RAD_ITS ---
STUDY: X-RAY CHEST REASON FOR EXAM: Female, 71 years old. Dyspnea TECHNIQUE: Single AP portable view of the chest. COMPARISON: Comparison is made with prior study 04/02/2018. FINDINGS: EKG electrodes are seen. Hyperinflation. I suspect a 1.4 cm nodule in the left midlung. Correlation with CT scan is recommended. There is no demonstrated pleural abnormality. Normal size heart. Normal mediastinum and savanna. Normal visualized pulmonary arteries. There is atherosclerotic tortuosity of the aortic arch and descending thoracic aorta. There are diffuse degenerative changes of the visualized thoracic spine. Normal visualized ribs, clavicles, and shoulders. There is no demonstrated abnormality of the visualized soft tissue structures of the upper abdomen. RAD/Chest 1 View (Portable) IMPRESSION: Possible 1.4 cm nodule in the left midlung. CT scan recommended. Electronically Signed: Riley Baum MD at 15:53 EDT ,
--- NOTE | 2022-03-24 15:41 | EX.ED.DYSGE1 ---
HPI History of Present Illness Chief Complaint: Shortness of Breath Informant: patient and EMS Onset/Context/Timing Onset: Days Context: Gradual Onset Current Severity: Moderate Associated Symptoms Associated Symptoms: Dry cough, nasal congestion Narrative Narrative: Patient reports shortness of breath with dry cough and nasal congestion for 2 days. This came on gradually. Nothing seems to make it better or worse. She is a smoker. Denies any history of lung disease. EMS noted that she was hypoxic. They treated her with breathing treatments and nasal cannula oxygen and her symptoms improved. She was 95% on 6 L. She does not normally wear oxygen. No history of ACS, venous thromboembolism, or aortic disease. No recent traumas. No fevers. [facility] Medical History Closed trimalleolar fracture of ankle Essential hypertension History of venous thromboembolism Schizophrenia Tobacco dependence VTE (venous thromboembolism) Home Medications amlodipine 5 mg tablet 5 mg PO DAILY Check with primary doctor 10/07/17 [History Last Taken 10/31/21] benztropine 1 mg tablet 0.5 mg PO DAILY Check with primary doctor 10/07/17 [History Last Taken 10/31/21] cholecalciferol (vitamin D3) 25 mcg (1,000 unit) capsule (Vitamin D3) 1,000 unit PO DAILY Check with primary doctor 10/07/17 [History Last Taken 10/31/21] haloperidol 5 mg tablet 2.5 mg PO BID Check with primary doctor 10/07/17 [History Last Taken 10/31/21] loratadine 10 mg tablet 10 mg PO DAILY PRN Allergy Symptoms 04/02/18 [History Last Taken 01/18/19] escitalopram oxalate 10 mg tablet 10 mg PO QHS 01/15/19 [History Last Taken 10/31/21] Allergy/AdvReac Type Severity Reaction Status Date / Time Penicillins Allergy Unknown Verified 03/24/22 14:40 Surgical History H/O: hysterectomy Status post ORIF of fracture of ankle Social History housing: other details: half-way Smoking Status: Current every day smoker tobacco type: cigarettes ROS ROS ED Constitutional Constitutional ED: Denies chills, fever(s), subjective or sweats Eyes Eyes: Denies blurry vision ENT ENT ED: Denies ear pain Cardiovascular Cardiovascular: Denies chest pain, palpitations or racing heartbeat Respiratory/Chest Respiratory/Chest: Reports cough, dyspnea and dyspnea on exertion; Denies sputum Gastrointestinal Gastrointestinal: Denies abdominal pain, diarrhea or vomiting Genitourinary Genitourinary ED: Denies dysuria or urinary frequency Musculoskeletal Musculoskeletal: Denies arthralgias or myalgias Integumentary Denies abscess or rash Neurologic Neurologic: Denies headache(s) Psychiatric Psychiatric: Denies anxiety Endocrine Endocrinology: Denies cold intolerance Allergic/Immunologic Allergic/Immunologic ED: Denies mouth swelling EXAM Physical Exam Const Vital Signs: 03/24/22 14:43 03/24/22 15:02 03/24/22 15:14 Temperature 97.6 F L Temperature Source Temporal Pulse Rate 120 H Respiratory Rate 22 H Respiratory Effort Short of Breath Respiratory Pattern Tachypnea Blood Pressure 150/73 H Blood Pressure Mean 98 Pulse Ox 78 Oxygen Delivery Method Room Air Nasal Cannula Nasal Cannula 03/24/22 15:30 Temperature Temperature Source Pulse Rate 108 H Respiratory Rate 24 H Respiratory Effort Respiratory Pattern Tachypnea Blood Pressure Blood Pressure Mean Pulse Ox Oxygen Delivery Method Positive well nourished and well developed General Appearance ED: well developed HEENT Reports moist mucous membranes Eyes PERRL Resp normal respiratory effort Auscultation: wheezes Cardio regular rhythm Rate: tachycardic GI normal to inspection, nondistended, normoactive bowel sounds, non-tender and non-distended Extremity General Extremety ED: Negative for edema or tenderness General Extremity: Negative for edema Neuro oriented x3 Sensorium / Orientation: alert Psych mental status grossly normal MDM MDM MDM Narrative Medical decision making narrative: EKG interpreted by me showed sinus rhythm at a rate of 107. No sign of acute ischemia or infarction pattern. Nonspecific ST and T wave changes. This was interpreted by me. She was maintained on the monitor. I was able to take her down to 3 L nasal cannula, but she still was around 92% at rest. She received Solu-Medrol and breathing treatments. She felt symptomatically better and appeared to be more comfortable on reevaluation. She continued to be tachycardic but afebrile. COVID test was negative. Her troponin was normal. She had a white count of 24. I reviewed her prior blood counts and she tends to have a leukocytosis. I mentioned this to her, and she said that she always has a high white blood cell count and that her doctor cannot figure it out. Her chest x-ray was reviewed by the radiologist and myself. No acute changes. She does have a lung nodule that will need follow-up not emergently. She is a smoker with wheezing. She does not have chest pain, hemoptysis, leg swelling, calf pain, recent travel or risk factors for DVT or PE. I believe this is likely a COPD exacerbation and that she will need meds, oxygen, and supportive care. I contacted the hospitalist who will evaluate. Disposition is admission to PCU Impression #1 COPD #2 hypoxia #3 leukocytosis #4 lung nodule (will need nonemergent CT follow-up) Lab Data Labs: Laboratory Results - last 24 hr 03/24/22 03/24/22 15:23 15:23 WBC 24.1 H RBC 4.86 Hgb 14.2 Hct 43.3 MCV 89.1 MCH 29.2 MCHC 32.8 RDW Std Deviation 40.2 RDW Coeff of Jaspal 12.3 Plt Count 316 MPV 10.4 Immature Gran % (Auto) 0.700 Neut % (Auto) 86.4 H Lymph % (Auto) 6.8 L [place] % (Auto) 5.7 Eos % (Auto) 0.2 Baso % (Auto) 0.2 Absolute Neuts (auto) 20.8 H Absolute Lymphs (auto) 1.63 Nucleated RBC % 0 Sodium 140 Potassium 3.5 Chloride 105 Carbon Dioxide 28.0 Anion Gap 7 BUN 9 Creatinine 0.71 Estim Creat Clear Calc 44.56 Est GFR (MDRD) Af Amer 104 Est GFR (MDRD) Non-Af 86 BUN/Creatinine Ratio 12.7 Glucose 146 H Calcium 8.7 Troponin I High Sens 9 Radiography Diagnostic Testing: Clinical Impression(s) from Imaging Studies Chest X-Ray 03/24/22 15:40 IMPRESSION: Possible 1.4 cm nodule in the left midlung. CT scan recommended. Electronically Signed: Riley Baum MD at 15:53 EDT , Discharge Plan Triage Chief Complaint: Shortness of Breath ED Provider: Haresh Moy Dx/Rx/DC Orders Prescriptions: No Action haloperidol 5 MG tablet 2.5 mg PO BID amlodipine 5 MG tablet 5 mg PO DAILY benztropine 1 MG tablet 0.5 mg PO DAILY cholecalciferol (vitamin D3) [Vitamin D3] 1,000 UNIT capsule 1,000 unit PO DAILY loratadine 10 MG tablet 10 mg PO DAILY PRN (Reason: Allergy Symptoms) escitalopram oxalate 10 MG tablet 10 mg PO QHS Primary Care Provider: Anthony Schwartz Referrals: Anthony Schwartz MD [Primary Care Provider] -
[2022-03-24 15:43] LABS: Differential Indicated SCAN CRITERIA MET
[2022-03-24 15:59] LABS: Anion Gap 7 (5-15); BUN 9 mg/dL (7-18); BUN/Creat Ratio 12.7 RATIO (10-20); Calcium,Total 8.7 mg/dL (8.5-10.1); Chloride 105 mmol/L (98-107); Creatinine, Serum 0.71 mg/dL (0.55-1.02); EST Glomerular Filtration Rate 86 mL/min (>60); Est Glom Filt Rate - Afr Amer 104 mL/min (>60); Estimated Creatinine Clearance 44.56 ml/min; Glucose 146 mg/dL (74-106); Potassium 3.5 mmol/L (3.5-5.1); Sodium Level 140 mmol/L (136-145); Troponin-I HS 9 pg/mL (3.0-54.0)
[2022-03-24] MEDS: MethylPREDNISolone 125 MG/2 ML Vial IV (16:01)
--- NOTE | 2022-03-24 16:11 | PCM.HP.STD ---
HPI - General General Date of Admission: 03/24/22 Date of Service: 03/24/22 Chief Complaint: URI illness, worsening dyspnea, hypoxia at [facility]. HPI Narrative The patient is a 71 y/o F w/ PMHx: Morbid Obesity, HTN, Tobacco use, Schizophrenia unclear type, Hx VTE, COPD who presents to the [facility] ED on 03/24/22 with history of 3 days of progressively worsening fatigue, malaise, dyspnea which was worse with exertion with associated non-productive cough with severe wheezing not improving with outpatient treatments with significant rhinorrhea as well as mild congestion with no associated fever or chills with no recent ill contacts in the [facility] prompting ED referral. In the ED patient initially significantly hypoxic with increased work of breathing accessory muscle usage as well as notable tachycardia with per physician report initially required 6 to 8 L nasal cannula however patient eventually improved and was transitioned down to 4 L nasal cannula noted to be 96% on room air. Work-up in the ED included T97.6, heart rate 120 with most recent repeat 108, BP 150/73, respiratory rate 22, initially 78% on room air--> transiently requiring up to 6 to 8 L nasal cannula but eventually improved to 96% on 4 L following treatments in the ED, CBC with WC 24.1 however patient has chronic leukocytosis for several years although is increased from previously, hemoglobin 14.2, platelet 316 with left shift, BMP with glucose 146, troponin 9, COVID respiratory antigen negative, chest x-ray with questionable 1.4 cm nodule in the left midlung. In the ED patient administered DuoNeb therapies, albuterol as well as Solu-Medrol 125 mg IV x1. Given patient has been afebrile with a nonproductive cough and chronic leukocytosis history ED physician noted deferral of antibiotic therapy. [facility] Medical History (Updated 03/24/22 @ 17:[address] Kaycee Stauffer MD) COPD (chronic obstructive pulmonary disease) Essential hypertension History of venous thromboembolism Morbid obesity Schizophrenia Tobacco dependence Home Medications amlodipine 5 mg tablet 5 mg PO DAILY BP 10/07/17 [History Last Taken 03/24/22] benztropine 1 mg tablet 0.5 mg PO DAILY PARKINSONS 10/07/17 [History Last Taken 03/24/22] cholecalciferol (vitamin D3) 25 mcg (1,000 unit) capsule (Vitamin D3) 1,000 unit PO DAILY SUPPLEMENT 10/07/17 [History Last Taken 03/24/22] haloperidol 5 mg tablet 2.5 mg PO BID MOOD 10/07/17 [History Last Taken 03/24/22] loratadine 10 mg tablet 10 mg PO DAILY PRN Allergy Symptoms 04/02/18 [History Last Taken 03/23/22] escitalopram oxalate 10 mg tablet 10 mg PO QHS ANXIETY 01/15/19 [History Last Taken 03/23/22] Allergy/AdvReac Type Severity Reaction Status Date / Time Penicillins Allergy Unknown Verified 03/24/22 14:40 Family History (Updated 03/24/22 @ 17:[address] Kaycee Stauffer MD) Mother Uterine cancer Hypertension Father Hypertension Lung cancer Concurrent tobacco use history. Surgical History H/O: hysterectomy Status post ORIF of fracture of ankle Social History (Updated 03/24/22 @ 17:[address] Kaycee Stauffer MD) housing: other details: [facility]. Smoking Status: Current every day smoker tobacco type: cigarettes alcohol intake: never substance use type: does not use ROS ROS Narrative Admission Review of Systems: CONSTITUTIONAL: No weight loss, fever, chills, + weakness or fatigue. HEENT: + Congestion, rhinorrhea. Eyes: No visual loss, blurred vision, double vision or yellow sclerae. Ears, Nose, Throat: No hearing loss, sneezing, sore throat. SKIN: No rash or itching, lesions, wounds. CARDIOVASCULAR: No chest pain, chest pressure or chest discomfort, palpitations, edema, orthopnea, syncopal events. RESPIRATORY: + shortness of breath, cough without productive sputum, wheezing, No hemoptysis. GASTROINTESTINAL: No anorexia, nausea, vomiting or diarrhea, abdominal pain, melena, BRBPR. GENITOURINARY: No dysuria, frequency, urgency or retention. NEUROLOGICAL: No headache, dizziness, syncope, paralysis, ataxia, numbness or tingling in the extremities, focal weakness, change in bowel or bladder control, seizure. MUSCULOSKELETAL: + muscle, back pain, joint pain or stiffness. HEMATOLOGIC: No anemia, bleeding or bruising. LYMPHATICS: No enlarged nodes. No history of splenectomy. PSYCHIATRIC: + Schizophrenia. ENDOCRINOLOGIC: No reports of sweating, cold or heat intolerance. No polyuria or polydipsia. ALLERGIES: + history of rhinitis. Vital Signs Vital Signs Vital Signs: 03/24/22 14:43 03/24/22 15:02 03/24/22 15:14 Temperature 97.6 F L Temperature Source Temporal Pulse Rate 120 H Respiratory Rate 22 H Respiratory Effort Short of Breath Respiratory Pattern Tachypnea Blood Pressure 150/73 H Blood Pressure Mean 98 Pulse Ox 78 Oxygen Delivery Method Room Air Nasal Cannula Nasal Cannula 03/24/22 15:30 Temperature Temperature Source Pulse Rate 108 H Respiratory Rate 24 H Respiratory Effort Respiratory Pattern Tachypnea Blood Pressure Blood Pressure Mean Pulse Ox Oxygen Delivery Method Weight Weight: 229 lb 8.019 oz Body Mass Index (BMI) 39.2 Physical Exam Narrative Physical Examination: General: Awake, alert, oriented x 3 and cooperative, seated upright in the ED bed, fatigued, still some increased work of breathing and mild accessory muscle usage but notes feeling significantly improved, down to 4 L nasal cannula. Skin: Normal color, normal turgor, no icterus, no cyanosis. HEENT: AT/NC, EOMI, PERRLA, mildly dry MM, no carotid bruits or JVD noted; however, thickened neck makes evaluation difficult. Lungs: Significantly diminished, greater bases, mildly increased work of breathing as well as mild accessory muscle usage, significantly improved from initial respiratory distress, diffuse expiratory wheezing, no rales. Abdomen: Soft, morbidly obese NTTP, ND, distant normal BS, no obvious HSM; however, habitus makes evaluation difficult. Extremities: No cyanosis, no clubbing, bilateral ankle nonpitting edema. Neurological: Patient awake, alert, oriented as noted, cognitive function intact with underlying history of schizophrenia; pupils equally reactive to light and accommodation, cranial nerves grossly normal, moving all 4 extremities, no focal deficits, strength improving, moderately to severely global decrease secondary to acute respiratory distress presentation, improving Psychiatric: Affect appears fatigued, respiratory distress lessening, no acute evidence of depressive or anxiety feelings. Results Lab / Micro Data Result Diagrams: 03/24/22 15:23 03/24/22 15:23 Labs: Laboratory Results - last 24 hr 03/24/22 15:23: WBC 24.1 H, RBC 4.86, Hgb 14.2, Hct 43.3, MCV 89.1, MCH 29.2, MCHC 32.8, RDW Std Deviation 40.2, RDW Coeff of Jaspal 12.3, Plt Count 316, MPV 10.4, Immature Gran % (Auto) 0.700, Neut % (Auto) 86.4 H, Lymph % (Auto) 6.8 L, [place] % (Auto) 5.7, Eos % (Auto) 0.2, Baso % (Auto) 0.2, Absolute Neuts (auto) 20.8 H, Absolute Lymphs (auto) 1.63, Nucleated RBC % 0 03/24/22 15:23: Sodium 140, Potassium 3.5, Chloride 105, Carbon Dioxide 28.0, Anion Gap 7, BUN 9, Creatinine 0.71, Estim Creat Clear Calc 44.56, Est GFR (MDRD) Af Amer 104, Est GFR (MDRD) Non-Af 86, BUN/Creatinine Ratio 12.7, Glucose 146 H, Calcium 8.7, Troponin I High Sens 9 Micro: Microbiology 03/24/22 15:27 Nasal Secretion SARS-CoV-2 Antigen (Rapid) - Final Radiology Impression Chest X-Ray 03/24/22 15:40 IMPRESSION: Possible 1.4 cm nodule in the left midlung. CT scan recommended. Electronically Signed: Riley Baum MD at 15:53 EDT , Assessment & Plan Assessment/Plan (1) COPD exacerbation: (2) Acute respiratory failure with hypoxia: PLAN: Plan The patient is a 71 y/o F w/ PMHx: Morbid Obesity, HTN, Tobacco use, Schizophrenia unclear type, Hx VTE, COPD who presents to the [facility] ED on 03/24/22 with history of 3 days of progressively worsening fatigue, malaise, dyspnea which was worse with exertion with associated non-productive cough with severe wheezing not improving with outpatient treatments with rhinorrhea and mild congestion with no associated fever or chills with no recent ill contacts prompting ED referral. #1. Acute on chronic COPD exacerbation w/ Acute Hypoxic Respiratory Failure: Patient with significantly increased work of breathing, accessory muscle usage and notable hypoxia down to 78% requiring transient usage per discussion with ED physician of 6 to 8 L eventually transition down to 4 L with aerosols and steroid administration improvement. Will admit to PCU to be cautious given significant hypoxia initially in case requires BiPAP and mild ongoing tachycardia, CTPA pending given patient history of VTE as well as #2, will maintain on oxygen with wean as tolerated to room air, continue ATC duonebs, PRN albuterol, IV methylprednisolone, HOB, IS parameters. We will hold on antibiotic therapy pending CTPA, procalcitonin, sputum culture, respiratory viral panel as well as antigens to be cautious. If any concerns arise or imaging findings/lab findings concerning for bacterial infection will initiate antibiotic therapy #2. Questionable left midlung nodule: Chest x-ray with questionable 1.4 cm nodule in the left midlung, given significant tobacco use history as well as prior VTE CT being obtained as noted above. #3. Hyperglycemia: Admission glucose 146, no diabetic history, given planned steroid usage will obtain hemoglobin A1c to be cautious. #4. Morbid Obesity: Weight loss and lifestyle changes encouraged. #5. Tobacco Abuse: Encouraged cessation, inpatient consultation per RT, NR if desired. #6. History of VTE: Unclear timeline, not chronically anticoagulated, maintain on chemoprophylaxis as noted pending CT as noted above. #7. Hypertension: We will continue patient home amlodipine regimen, as needed IV hydralazine. #8. DVT prophylaxis: SCDs, Lovenox. #9. CODE status: Patient does not have a healthcare power of patent prosecution attorney nor living will in place. Given concerns about respiratory status upon presentation discussed CODE status at length including difference between FULL code, DNR-CCA and DNR-CC status. Following discussions about the differences in these status, requested Full Code status. Advanced Care Planning Face to Face Time: 16 minutes. Charges/Coding Visit Charges Inpatient E&M: 44542 Init Hosp L3 Procedures Hospitalists Procedures: 48076 Advncd Care Plan 30 Min
[2022-03-24 16:20] LABS: Platelet Estimate ADEQUATE (ADEQ); Red Cell Morphology NORM C+C NORMAL (NORM C&C)
--- NOTE | 2022-03-24 16:24 | NURSING ---
PCU WHITE COPD, HYPOXIA, LEUKOCYTOSIS, LUNG NODULE
--- NOTE | 2022-03-24 16:58 | CT_ITS ---
STUDY: CTA CHEST REASON FOR EXAM: Female, 71 years old. The 20 IS beginning to days ago. Increased shortness of breath today. Fatigue nonproductive cough with wheezing. Patient on blood thinners. RADIATION DOSAGE (If Supplied By Facility): CTDIvol = ( 13.53 ) mGy, DLP = ( 535.80 ) mGycm TECHNIQUE: The examination was performed with the intravenous administration of IV 100mL Isovue-370. Post-processing of the angiographic images was performed, with multiplanar reformation and 3D reconstruction. Individualized dose optimization techniques were used for this CT. COMPARISON: Chest, 03/24/2022. FINDINGS: Normal enhancement of the main pulmonary artery and right and left pulmonary arteries. Normal enhancement of the bilateral peripheral pulmonary arteries. There is no demonstrated pulmonary embolism. Normal thoracic aorta and visualized great vessels. There is no demonstrated aortic dissection. Normal heart and pericardium. No coronary artery calcifications. Nonspecific subcentimeter mediastinal lymphadenopathy. Normal hilar regions. Normal visualized trachea and bronchi. The lungs are well expanded. Azygos lobe in the right upper chest. There is no evidence of acute infiltrate or mass within the lungs. Normal pleura. Normal chest wall structures. There are degenerative changes of thoracic spine. Left adrenal adenoma. The upper abdomen is otherwise grossly normal. CT/CTA Chest W/WO Contrast IMPRESSION: No evidence of pulmonary embolus. No aortic dissection or aneurysm. No evidence of pulmonary mass or infiltrate. Electronically Signed: Anthony Rivera DO at 19:37 EDT ,
[2022-03-24] MEDS: 0.9% Normal Saline 1,000 ML 100 ML IV (17:45)
[2022-03-24 19:17] LABS: Procalcitonin 0.06 ng/mL (0.00-0.09)
[2022-03-24] MEDS: Haloperidol 5 MG Tablet 2.5 MG PO (21:17)
[2022-03-24] MEDS: Escitalopram Oxalate 10 MG Tablet PO (21:19)
[2022-03-24] MEDS: guaiFENesin 1,200 MG Tablet 1200 MG PO (21:19)
[2022-03-25] VITALS (24 sets, daily range): BP systolic 127–160; BP diastolic 58–86; PULSE 81–118; RESP 12–32; TEMP 36.1–37.2; O2SAT 93–99
[2022-03-25] MEDS: Ipratropium/Albuterol Sulfate 3 ML AMPUL.NEB INHALATION ×5 (06:25→19:41)
[2022-03-25 06:56] LABS: Absolute Neutrophil Count 20.7 X10^3/uL (2.0-7.7); Basophil# 0.03 X10^3/uL; Basophil% 0.1 % (0-1); Hematocrit 45.7 % (37-47); Hemoglobin 14.7 g/dL (12.0-15.0); Lymphocyte % 7.4 % (19-41); Mean Corp Hgb Conc 32.2 g/dL (32-36); Mean Corpuscular Hgb 29.9 pg (27.0-32.0); Mean Corpuscular Volume 93.1 fL (81-99); Mean Platelet Vol. 10.2 fl (6.2-12.0); Monocyte# 0.28 X10^3/uL; Monocyte% 1.2 % (0-10); NRBC Flagged by Analyzer 0 % (0-5); Neutrophil # 20.73 X10^3/uL (2.7-7.7); Neutrophil % 90.6 % (47-70); POSITIVE DIFFERENTIAL YES; Platelet Count 357 K/mm3 (150-450); RBC Distribution Width CV 12.4 % (11.6-14.6); RBC Distribution Width SD 42.6 fl (35.1-43.9); Red Blood Count 4.91 M/mm3 (4.2-5.4); White Blood Count 22.9 K/mm3 (4.4-11.0)
[2022-03-25 06:57] LABS: Differential Indicated SCAN CRITERIA MET
[2022-03-25 07:24] LABS: ALB/GLOB Ratio 0.7 RATIO (0.9-2.4); AST(SGOT) 22 U/L (15-37); Alanine Aminotransfer ALT/SGPT 24 U/L (13-56); Albumin, Serum 3.2 g/dL (3.2-5.0); Alkaline Phosphatase 157 U/L (45-117); Anion Gap 5 (5-15); BUN 13 mg/dL (7-18); BUN/Creat Ratio 16.8 RATIO (10-20); Calcium,Total 9.2 mg/dL (8.5-10.1); Chloride 103 mmol/L (98-107); Creatinine, Serum 0.77 mg/dL (0.55-1.02); EST Glomerular Filtration Rate 78 mL/min (>60); Est Glom Filt Rate - Afr Amer 95 mL/min (>60); Estimated Creatinine Clearance 44.56 ml/min; Globulin 4.8 g/dL (2.2-4.2); Glucose 150 mg/dL (74-106); Potassium 3.8 mmol/L (3.5-5.1); Sodium Level 139 mmol/L (136-145)
[2022-03-25 08:25] LABS: Hemoglobin A1c 5.5 % (3.8-5.6)
[2022-03-25] MEDS: Enoxaparin 40 MG/0.4 ML Syringe SC (08:49)
[2022-03-25] MEDS: guaiFENesin 1,200 MG Tablet 1200 MG PO ×2 (08:49→20:20)
[2022-03-25] MEDS: Benztropine Mesylate 0.5 MG TABLET PO (08:49)
[2022-03-25] MEDS: Haloperidol 5 MG Tablet 2.5 MG PO ×2 (08:49→20:19)
[2022-03-25] MEDS: amLODIPine 5 MG Tablet PO (08:49)
[2022-03-25] MEDS: FLU VACC QS2022-23(6MOS UP)/PF 60 MCG/0.5 ML SYRINGE IM (08:57)
--- NOTE | 2022-03-25 09:34 | CASEMGMT ---
Patient was at [facility] in October of this year. Patient is from a mental health detention. SW will check with the detention to see if patient will be allowed to return if she requires oxygen. Sandy JOYNER
--- NOTE | 2022-03-25 09:41 | CASEMGMT ---
JOSE MIGUEL called what JOSE MIGUEL thought was the residential, however it was patient's case supervisor, Mami Smart. JOSE MIGUEL asked Mami if patient requires O2 at discharge can she return to the residential. Mami said patient cannot as the residential is not medically licensed. Mami said patient broke her ankle in October and went to [facility]. Patient has only been home from [facility] for about a month. Mami said unfortunately patient's only coping mechanism is smoking and patient smokes a lot. Patient is her own person and makes her own decisions. Mami said patient understands the consequences of her actions. JOSE MIGUEL told Mami JOSE MIGUEL will update her on d/c as SW knows more. Plan: Patient is from a mental health residential. Should patient need O2 at d/c she would not be able to return to the residential and would have to go to a fdc. Sandy Pedraza NURSE [employer]VOCATE ANYA
--- NOTE | 2022-03-25 11:32 | CASEMGMT ---
Assessment- SW completed assessment with patient at bedside. Living situation- Patient lives in a mental health longterm. Patient has been there for 10 years. The longterm is 2 stories with a flight to enter the home as well. PCP: Dr Schwartz Specialists: Ariane Trujillo-TEACHER VOCAL with Psychiatry at [facility] Pharmacy: [facility] DME:? None ADL's/IADL's: Patient reports she is back to being independent with all of her IADL's and ADL's. However, patient does not drive. The longterm handles patient's transportation. Past SNF/rehab: Patient was at [facility] in October of this year. Patient was there for a couple of months. Patient has also been to [facility] Past HH: None LW: None POA:? None Plan: SW let patient know that if she needs O2 at discharge she will not be able to go back to the longterm. Patient verbalized understanding. SW asked patient if she would need to go back to the group home would she want to go back to [facility] or would she like a list of facilities. Patient said she would want to go back to [facility]. SW will continue to follow for safe d/c plan. Mental Health: Patient has diagnosis of Schizophrenia. Patient's Schizophrenia is being managed by medicine. Patient has a Psychiatrist and business case analyst at [facility]. Patient also resides in a mental health longterm. Sandy JOYNER
--- NOTE | 2022-03-25 14:28 | PN.HOSP_ITS ---
Subjective Subjective She does feel like she is breathing better today. Lungs still sound pretty coarse. Remains on BiPAP we will trial off. Objective Data Objective Data Vital Signs: Vital Signs Temp Pulse Resp BP Pulse Ox O2 Del Method O2 Flow Rate 97.0 F L 103 H 28 H 151/86 H 96 Nasal Cannula 4 03/25/22 10:40 03/25/22 10:59 03/25/22 10:56 03/25/22 10:40 03/25/22 10:40 03/25/22 10:40 03/25/22 03:00 FiO2 40 03/25/22 09:12 Oxygen Flow Rate (L/min) 4 Oxygen Delivery Method Nasal Cannula Weight: 100.7 kg Body Mass Index (BMI) 38.1 Intake & Output: Intake and Output for Last 24 Hours 03/23/22 03/24/22 03/25/22 23:59 23:59 23:59 Intake Total 240 / 240 1000 / 1000 Balance 240 / 240 1000 / 1000 Lab / Micro Data Result Diagrams: 03/25/22 06:15 03/25/22 06:15 Labs: Laboratory Results - last 24 hr 03/24/22 15:23: WBC 24.1 H, RBC 4.86, Hgb 14.2, Hct 43.3, MCV 89.1, MCH 29.2, MCHC 32.8, RDW Std Deviation 40.2, RDW Coeff of Jaspal 12.3, Plt Count 316, MPV 10.4, Immature Gran % (Auto) 0.700, Neut % (Auto) 86.4 H, Lymph % (Auto) 6.8 L, [place] % (Auto) 5.7, Eos % (Auto) 0.2, Baso % (Auto) 0.2, Absolute Neuts (auto) 20.8 H, Absolute Lymphs (auto) 1.63, Nucleated RBC % 0, Differential Comment , Platelet Estimate ADEQUATE, RBC Morphology NORM C+C 03/24/22 15:23: Sodium 140, Potassium 3.5, Chloride 105, Carbon Dioxide 28.0, Anion Gap 7, BUN 9, Creatinine 0.71, Estim Creat Clear Calc 44.56, Est GFR (MDRD) Af Amer 104, Est GFR (MDRD) Non-Af 86, BUN/Creatinine Ratio 12.7, Glucose 146 H, Calcium 8.7, Troponin I High Sens 9 03/24/22 18:18: Procalcitonin 0.06 03/25/22 06:15: WBC 22.9 H, RBC 4.91, Hgb 14.7, Hct 45.7, MCV 93.1, MCH 29.9, MCHC 32.2, RDW Std Deviation 42.6, RDW Coeff of Jaspal 12.4, Plt Count 357, MPV 10.2, Immature Gran % (Auto) 0.700, Neut % (Auto) 90.6 H, Lymph % (Auto) 7.4 L, [place] % (Auto) 1.2, Eos % (Auto) 0.0, Baso % (Auto) 0.1, Absolute Neuts (auto) 20.7 H, Absolute Lymphs (auto) 1.70, Nucleated RBC % 0 03/25/22 06:15: Sodium 139, Potassium 3.8, Chloride 103, Carbon Dioxide 31.0, Anion Gap 5, BUN 13, Creatinine 0.77, Estim Creat Clear Calc 44.56, Est GFR (MDRD) Af Amer 95, Est GFR (MDRD) Non-Af 78, BUN/Creatinine Ratio 16.8, Glucose 150 H, Calcium 9.2, Total Bilirubin 0.60, AST 22, ALT 24, Alkaline Phosphatase 157 H, Total Protein 8.0, Albumin 3.2, Globulin 4.8 H, Albumin/Globulin Ratio 0.7 L 03/25/22 06:15: Hemoglobin A1c 5.5 Micro: Microbiology 03/25/22 Unknown Urine, Clean Catch Streptococcus pneumoniae Antigen (M - Final 03/24/22 20:00 Urine, Clean Catch Legionella Antigen - Final 03/24/22 17:15 Interface Orders Respiratory Panel (PCR) - Final 03/24/22 15:27 Nasal Secretion SARS-CoV-2 Antigen (Rapid) - Final Radiography Diagnostic Testing: Radiology Impression Chest X-Ray 03/24/22 15:40 IMPRESSION: Possible 1.4 cm nodule in the left midlung. CT scan recommended. Electronically Signed: Riley Baum MD at 15:53 EDT , Chest CTA 03/24/22 16:58 IMPRESSION: No evidence of pulmonary embolus. No aortic dissection or aneurysm. No evidence of pulmonary mass or infiltrate. Electronically Signed: Anthony Rivera DO at 19:37 EDT Reading Location ID and State: [address] [place] [address] Tel [phone], Service support , Physical Exam Const alert, no apparent distress and well nourished Constitutional Narrative: Obese, older white female lying in bed with BiPAP in place, appears comfortable nontoxic, sleeping but awakens easily HEENT head/scalp atraumatic HEENT Narrative: Dentition is poor and patient is a dentulous, mucous membranes are somewhat dry from BiPAP, Mallampati 3, no thrush Resp no retractions and no use of accessory muscles Resp Narrative: Diffuse inspiratory and expiratory wheeze with few scattered crackles, no rhonchi, tachypnea but no signs of respiratory extremis Auscultation: crackles, rhonchi and wheezes Cardio regular rhythm, S1 normal heart sound, S2 normal heart sound, no murmurs, no rub, no gallops, no clicks and no JVD Cardio Narrative: Mild tachycardia GI normal to inspection, nondistended, normoactive bowel sounds, soft to palpation and non-tender GI Narrative: Protuberant abdomen Extremity Extremity Narrative: Trace 1+ bilateral lower extremity edema, no cyanosis or clubbing Skin no wounds, skin turgor normal, no jaundice, no petechiae and no mottling Neuro moves all extremities and no focal motor deficits Speech: speech normal Psych Psych Narrative: Calm, very pleasant Assessment & Plan Assessment/Plan (1) Acute respiratory failure with hypoxia: (2) COPD exacerbation: (3) Leukocytosis: (4) Hyperglycemia: PLAN: Plan Acute hypoxic respiratory failure secondary to COPD exacerbation -Patient has required rescue BiPAP through the night and is stabilizing -We will trial off BiPAP to nasal cannula -She is not O2 dependent at baseline -Oxygen saturation on room air in the emergency department was 78% -Continue aggressive pulmonary toilet -Add Pep therapy -Continue incentive spirometry -COVID-negative -Respiratory viral panel negative -Sputum culture pending -Empiric antibiotics held and will await culture results before initiating antibiotics as my overall suspicion for bacterial infection is low -Procalcitonin was 0.06 -Solu-Medrol 40 every 8--> will eventually taper to prednisone for long course at discharge Leukocytosis -Appears to be chronic but higher than baseline -Likely will increase some with steroid use -Infectious work-up in progress -Procalcitonin is low at 0.06 -Continue to monitor Hyperglycemia -Likely reactive secondary to steroids -Current A1c is 5.5 Suspected COPD -Patient is not on any respiratory medications at baseline -Would recommend outpatient follow-up with pulmonary medicine after discharge -Place referral and discharge paperwork -We will need outpatient PFTs Hypertension -Continue amlodipine History of DVT -Not currently on any anticoagulation -Timing is unclear History of schizophrenia -Continue Haldol -Continue home Lexapro Obesity -BMI 38.1 -Complicates treatment, prognosis, outcomes -Recommend weight loss Suspected MARK -Patient will need outpatient follow-up for sleep apnea study once she is clinically improved from a respiratory standpoint Tobacco abuse -Recommend cessation strongly -Nicotine replacement therapy if desired DVT prophylaxis -Lovenox -SCDs CODE STATUS -Full code Charges/Coding Visit Charges Inpatient E&M: 13806 Subs Hosp L2
--- NOTE | 2022-03-25 18:26 | PCM.HOSP.N ---
Hospitalist Note Sputum preliminary with GPC and GNR, will add cefepime and vanc.
[2022-03-25] MEDS: Escitalopram Oxalate 10 MG Tablet PO (20:18)
--- NOTE | 2022-03-25 20:25 | PCM.RX.CS ---
Consult Pharmacy has been consulted to manage selected antiobiotic: Vancomycin Type of Consult: New start Prior Doses of Antibiotics Received/Current Regimen: Medications Vancomycin HCl 2,000 mg/ (Sodium Chloride) 540 mls @ 250 mls/hr IV X1 ONE Stop: 03/25/22 21:09 Last Admin: 03/25/22 19:45 Dose: 250 mls/hr Labs: Sodium 139 mmol/L (136-145) 03/25/22 06:15 Potassium 3.8 mmol/L (3.5-5.1) 03/25/22 06:15 Chloride 103 mmol/L (98-107) 03/25/22 06:15 Carbon Dioxide 31.0 mmol/L (21.0-32.0) 03/25/22 06:15 Anion Gap 5 (5-15) 03/25/22 06:15 BUN 13 mg/dL (7-18) 03/25/22 06:15 Creatinine 0.77 mg/dL (0.55-1.02) 03/25/22 06:15 Est GFR (MDRD) Af Amer 95 mL/min (>60) 03/25/22 06:15 Est GFR (MDRD) Non-Af 78 mL/min (>60) 03/25/22 06:15 BUN/Creatinine Ratio 16.8 RATIO (10-20) 03/25/22 06:15 Glucose 150 mg/dL (74-106) H 03/25/22 06:15 Microbiology: Microbiology 03/25/22 09:13 Sputum, Expectorated/Coughed Gram Stain - Final 03/25/22 Unknown Urine, Clean Catch Streptococcus pneumoniae Antigen (M - Final 03/24/22 20:00 Urine, Clean Catch Legionella Antigen - Final 03/24/22 17:15 Interface Orders Respiratory Panel (PCR) - Final 03/24/22 15:27 Nasal Secretion SARS-CoV-2 Antigen (Rapid) - Final Estimated Creatinine Clearance: 58 Goal Trough: 15-20 mcg/mL Pharmacy Plan for Drug Dosing: Vancomycin 2000mg IV x1 followed by 1000mg IV q12h with trough prior to 4th dose per policy. Pharmacy Service will continue to monitor and adjust dosing as required. Follow-Up Labs: Trough Vancomycin - 03/27 @ 0730
[2022-03-25] MEDS: 0.9% Saline Lock 10 ML Syringe IV (20:28)
[2022-03-26] VITALS (24 sets, daily range): BP systolic 122–158; BP diastolic 59–120; PULSE 74–114; RESP 12–35; TEMP 36.2–36.7; O2SAT 89–100
[2022-03-26 06:16] LABS: Absolute Lymphocyte Count 1.67 X10^3/uL (0.83-4.51); Absolute Neutrophil Count 21.5 X10^3/uL (2.0-7.7); Basophil# 0.03 X10^3/uL; Basophil% 0.1 % (0-1); Hematocrit 41.9 % (37-47); Hemoglobin 13.2 g/dL (12.0-15.0); Lymphocyte # 1.67 X10^3/ul (0.83-4.51); Mean Corp Hgb Conc 31.5 g/dL (32-36); Mean Corpuscular Hgb 28.8 pg (27.0-32.0); Mean Corpuscular Volume 91.5 fL (81-99); Mean Platelet Vol. 10.4 fl (6.2-12.0); Monocyte% 2.5 % (0-10); NRBC Flagged by Analyzer 0 % (0-5); Neutrophil # 21.54 X10^3/uL (2.7-7.7); Neutrophil % 89.7 % (47-70); POSITIVE DIFFERENTIAL YES; Platelet Count 356 K/mm3 (150-450); RBC Distribution Width CV 12.4 % (11.6-14.6); RBC Distribution Width SD 41.1 fl (35.1-43.9); Red Blood Count 4.58 M/mm3 (4.2-5.4)
[2022-03-26] MEDS: Ipratropium/Albuterol Sulfate 3 ML AMPUL.NEB INHALATION ×4 (07:03→19:05)
[2022-03-26 07:16] LABS: Differential Indicated SCAN CRITERIA MET
[2022-03-26] MEDS: Vancomycin IV 1,000 MG/200 ML BAG 200 MG IV ×2 (08:38→20:47)
[2022-03-26] MEDS: 0.9% Saline Lock 10 ML Syringe IV (08:39)
[2022-03-26 09:01] LABS: Platelet Estimate ADEQUATE (ADEQ); Red Cell Morphology NORM C+C NORMAL (NORM C&C)
[2022-03-26] MEDS: Haloperidol 5 MG Tablet 2.5 MG PO ×2 (10:05→21:28)
[2022-03-26] MEDS: Benztropine Mesylate 0.5 MG TABLET PO (10:05)
[2022-03-26] MEDS: Enoxaparin 40 MG/0.4 ML Syringe SC (10:06)
[2022-03-26] MEDS: guaiFENesin 1,200 MG Tablet 1200 MG PO ×2 (10:06→21:27)
[2022-03-26] MEDS: amLODIPine 5 MG Tablet PO (10:08)
--- NOTE | 2022-03-26 11:32 | CASEMGMT ---
JOSE MIGUEL spoke with Alison Benites from [facility]. She was checking on patient. JOSE MIGUEL let Alison know that patient is on high flow O2. Alison wanted to make sure JOSE MIGUEL is aware patient cannot go back to the halfway on O2. JOSE MIGUEL told Alison GILLESPIE is aware. Alison gave JOSE MIGUEL her cell number if needed. Alison cell number: [phone]. Alison is the Inventory Specialist for [facility] group homes. Alison is also covering as patient's family independence case manager. Sandy JOYNER
--- NOTE | 2022-03-26 12:06 | PCM.PN.HOSP ---
Subjective Subjective Patient still with respiratory distress and has been on and off BiPAP. Was on 6 L high flow nasal cannula this morning but went back on BiPAP secondary hypoxia. Discussed with nursing will try Airvo as this will allow her to eat. Still markedly wheezy although sounds better than the last 24 hours. Gram stain was positive for gram-positive cocci and gram-negative rods and antibiotics were therefore initiated last evening. Objective Data Objective Data Vital Signs: Vital Signs Temp Pulse Resp BP Pulse Ox O2 Del Method O2 Flow Rate 98.1 F 114 H 34 H 147/68 H 94 Airvo 60 03/26/22 11:20 03/26/22 11:20 03/26/22 11:20 03/26/22 11:20 03/26/22 11:20 03/26/22 11:20 03/26/22 11:20 FiO2 80 03/26/22 11:20 Oxygen Flow Rate (L/min) 60 Oxygen Delivery Method Airvo Weight: 101.2 kg Body Mass Index (BMI) 38.1 Intake & Output: Intake and Output for Last 24 Hours 03/24/22 03/25/22 03/26/22 23:59 23:59 23:59 Intake Total 240 / 240 1640 / 1640 300 / 300 Balance 240 / 240 1640 / 1640 300 / 300 Lab / Micro Data Result Diagrams: 03/26/22 05:52 03/25/22 06:15 Labs: Laboratory Results - last 24 hr 03/26/22 05:52: WBC 24.0 H, RBC 4.58, Hgb 13.2, Hct 41.9, MCV 91.5, MCH 28.8, MCHC 31.5 L, RDW Std Deviation 41.1, RDW Coeff of Jaspal 12.4, Plt Count 356, MPV 10.4, Immature Gran % (Auto) 0.700, Neut % (Auto) 89.7 H, Lymph % (Auto) 7.0 L, [place] % (Auto) 2.5, Eos % (Auto) 0.0, Baso % (Auto) 0.1, Absolute Neuts (auto) 21.5 H, Absolute Lymphs (auto) 1.67, Nucleated RBC % 0, Differential Comment , Platelet Estimate ADEQUATE, RBC Morphology NORM C+C Micro: Microbiology 03/25/22 09:13 Sputum, Expectorated/Coughed Gram Stain - Final 03/25/22 Unknown Urine, Clean Catch Streptococcus pneumoniae Antigen (M - Final 03/24/22 20:00 Urine, Clean Catch Legionella Antigen - Final 03/24/22 17:15 Interface Orders Respiratory Panel (PCR) - Final 03/24/22 15:27 Nasal Secretion SARS-CoV-2 Antigen (Rapid) - Final Physical Exam Const alert, oriented x3, no apparent distress and well nourished Constitutional Narrative: Obese, older white female lying in bed with BiPAP in place, appears comfortable nontoxic, nursing at bedside HEENT head/scalp atraumatic HEENT Narrative: Mucous membranes are dry from BiPAP, Mallampati is 3-4, no thrush, dentition poor Resp no retractions and no use of accessory muscles Resp Narrative: Diffuse inspiratory and expiratory wheeze with few scattered crackles, no rhonchi, tachypnea but no signs of respiratory extremis Auscultation: crackles, rhonchi and wheezes Cardio regular rhythm, S1 normal heart sound, S2 normal heart sound, no murmurs, no rub, no gallops, no clicks and no JVD Cardio Narrative: Mild tachycardia GI normal to inspection, nondistended, normoactive bowel sounds, soft to palpation and non-tender GI Narrative: Protuberant abdomen Extremity Extremity Narrative: Trace 1+ bilateral lower extremity edema, no cyanosis or clubbing Skin no wounds, skin turgor normal, no jaundice, no petechiae and no mottling Neuro oriented x3, moves all extremities and no focal motor deficits Speech: speech normal Psych Psych Narrative: Calm, very pleasant Assessment & Plan Assessment/Plan (1) Acute respiratory failure with hypoxia: (2) COPD exacerbation: (3) Leukocytosis: (4) Hyperglycemia: PLAN: Plan Acute hypoxic respiratory failure secondary to COPD exacerbation -Remains on and off BiPAP to Airvo -Wean oxygen as able -She is not O2 dependent at baseline -Continue aggressive pulmonary toilet -Continue Pep therapy -Continue incentive spirometry -COVID-negative -Respiratory viral panel negative -Sputum culture shows gram-positive cocci and gram-negative rods along with gram-positive rods on gram stain -Empiric antibiotics initiated with this Gram stain with cefepime and ceftriaxone -Await final culture -Procalcitonin was 0.06 -Will give Lasix x1 dose 40 mg to assess for response--> no signs of significant volume overload on CTA -Continue Solu-Medrol 40 every 8--> will eventually taper to prednisone for long course at discharge -Consult pulmonary medicine Leukocytosis -Appears to be chronic but higher than baseline -Likely secondary to steroid use -Infectious work-up in progress -Procalcitonin is low at 0.06 -Continue to monitor Hyperglycemia -Likely reactive secondary to steroids -Current A1c is 5.5 Suspected COPD -Patient is not on any respiratory medications at baseline -Would recommend outpatient follow-up with pulmonary medicine after discharge -Place referral and discharge paperwork -We will need outpatient PFTs Hypertension -Continue amlodipine History of DVT -Not currently on any anticoagulation -Timing is unclear History of schizophrenia -Continue Haldol -Continue home Lexapro Obesity -BMI 38.1 -Complicates treatment, prognosis, outcomes -Recommend weight loss Suspected MARK -Patient will need outpatient follow-up for sleep apnea study once she is clinically improved from a respiratory standpoint Tobacco abuse -Recommend cessation strongly -Nicotine replacement therapy if desired DVT prophylaxis -Lovenox -SCDs CODE STATUS -Full code Charges/Coding Visit Charges Inpatient E&M: 67340 Subs Hosp L2
--- NOTE | 2022-03-26 12:18 | EX.PCM.CONCC ---
Assessment & Plan Assessment/Plan (1) Acute respiratory failure with hypoxia: PLAN: Plan RECOMMENDATIONS: 1. Wean supplemental oxygen to maintain saturations at or above 90%. 2. Recommend BiPAP therapy as needed throughout the day and consistently at night. 3. Continue empiric antimicrobials, pending finalized sputum culture results. 4. Continue scheduled bronchodilators and IV steroids. 5. Gentle diuresis as tolerated by hemodynamics and renal function. 6. Continue appropriate DVT prophylaxis. 7. Consider echocardiogram, if no improvement respiratory status over the next 24 hours. IMPRESSIONS: 1. Acute hypoxemic respiratory failure secondary to presumptive COPD exacerbation Most likely precipitated by tracheobronchitis. No definitive infiltrate or consolidation was identified on chest imaging. Agree with continuing empiric antimicrobials along with scheduled bronchodilators and IV steroids. I would also advise the continued use of BiPAP therapy as needed throughout the day and consistently on a nightly basis. Goal to wean FiO2 to maintain saturations at or above 90%. It is reasonable to attempt gentle diuresis with IV Lasix. The patient does not begin to improve from a respiratory perspective, consider echocardiogram. Ultimately, the patient will require close outpatient pulmonary follow-up so that baseline PFTs can be obtained and inhaler regimen augmented/optimized. 2. History of schizophrenia/obesity/questionable sleep disordered breathing/chronic tobacco dependency Complicates care, management, recovery and prognosis. Continue home medications as indicated. I personally spent 3 minutes discussing the deleterious effects of continued tobacco use with the patient, including modalities which could be utilized to achieve a smoke-free lifestyle. This note was generated with [employer] dictation software. It may contain incorrect words, spelling, and punctuation that were not noted in checking the note before signing. HPI Consult Data Date of Consult: 03/26/22 HPI Narrative Reason for Consultation: Acute hypoxemic respiratory failure HPI Narrative: The patient is a 71-year-old female, with a history as outlined below, who presented to the emergency department on March 24 with worsening shortness of breath, cough and wheezing. The patient has a known history of schizophrenia and resides at a alf. She has a longstanding tobacco abuse history and is currently smoking 0.5 packs of cigarettes per day. She reported that she only has access to an albuterol rescue inhaler at her baseline and that she ran out of the medication prior to her hospitalization. She does not utilize supplemental oxygen at her baseline. She is not currently followed by a senior administrative assistant, nor has she ever had pulmonary function studies completed. On presentation to the emergency department, the patient was noted to be afebrile but was notably tachycardic and tachypneic. Initial laboratory evaluation revealed a white blood cell count of 24,000. Chemistry profile was unrevealing. CTA chest showed no evidence for pulmonary embolism or infiltrate/consolidation. The patient was provided aerosol treatments and IV steroids. The patient was admitted to the progressive care unit, where she was initially managed with BiPAP therapy. The patient's infectious work-up to date has been unrevealing. Her sputum culture is still pending. Rapid COVID testing and respiratory viral panel were negative. The patient is currently being maintained on Airvo heated high flow with an FiO2 of 80%. She remains on cefepime and vancomycin along with scheduled bronchodilators and steroids. She does report some ongoing shortness of breath and cough, although this is apparently improved since her admission. [facility] Medical History (Updated 03/25/22 @ 14:[address] Nikki Gupta DO) COPD (chronic obstructive pulmonary disease) Essential hypertension History of venous thromboembolism Morbid obesity Schizophrenia Tobacco dependence Home Medications amlodipine 5 mg tablet 5 mg PO DAILY BP 10/07/17 [History Last Taken 03/24/22] benztropine 1 mg tablet 0.5 mg PO DAILY P[place]INSONS 10/07/17 [History Last Taken 03/24/22] cholecalciferol (vitamin D3) 25 mcg (1,000 unit) capsule (Vitamin D3) 1,000 unit PO DAILY SUPPLEMENT 10/07/17 [History Last Taken 03/24/22] haloperidol 5 mg tablet 2.5 mg PO BID MOOD 10/07/17 [History Last Taken 03/24/22] loratadine 10 mg tablet 10 mg PO DAILY PRN Allergy Symptoms 04/02/18 [History Last Taken 03/23/22] escitalopram oxalate 10 mg tablet 10 mg PO QHS ANXIETY 01/15/19 [History Last Taken 03/23/22] Allergy/AdvReac Type Severity Reaction Status Date / Time Penicillins Allergy Unknown Verified 03/24/22 14:40 Family History (Updated 03/24/22 @ 17:[address] Kaycee Satuffer MD) Mother Uterine cancer Hypertension Father Hypertension Lung cancer Concurrent tobacco use history. Surgical History H/O: hysterectomy Status post ORIF of fracture of ankle Social History (Updated 03/24/22 @ 17:[address] Kaycee Stauffer MD) housing: other details: correction. Smoking Status: Current every day smoker tobacco type: cigarettes alcohol intake: never substance use type: does not use ROS ROS Narrative 10 systems were reviewed with pertinent positives as noted in the HPI above. Physical Exam Const alert General Appearance: cooperative Nutritional Appearance: obese HEENT normocephalic and head/scalp atraumatic Eyes PERRL, EOMs intact bilaterally and conjunctivae normal Neck supple General: trachea midline Chest inspection of chest normal Resp Effort and Inspection: tachypneic and labored Auscultation: wheezes and diminished lung sounds Cardio S1 normal heart sound and S2 normal heart sound Rate: tachycardic GI normal to inspection, nondistended, normoactive bowel sounds Extremity no clubbing, cyanosis or edema Skin no rashes or lesions noted Neuro oriented x3, moves all extremities and no focal motor deficits Psych cooperative and affect normal Lab / Micro Data Result Diagrams: 03/26/22 05:52 03/25/22 06:15 Labs: Laboratory Results - last 24 hr 03/26/22 05:52: WBC 24.0 H, RBC 4.58, Hgb 13.2, Hct 41.9, MCV 91.5, MCH 28.8, MCHC 31.5 L, RDW Std Deviation 41.1, RDW Coeff of Jaspal 12.4, Plt Count 356, MPV 10.4, Immature Gran % (Auto) 0.700, Neut % (Auto) 89.7 H, Lymph % (Auto) 7.0 L, [place] % (Auto) 2.5, Eos % (Auto) 0.0, Baso % (Auto) 0.1, Absolute Neuts (auto) 21.5 H, Absolute Lymphs (auto) 1.67, Nucleated RBC % 0, Differential Comment , Platelet Estimate ADEQUATE, RBC Morphology NORM C+C Micro: Microbiology 03/25/22 09:13 Sputum, Expectorated/Coughed Gram Stain - Final 03/25/22 Unknown Urine, Clean Catch Streptococcus pneumoniae Antigen (M - Final Charges/Coding Visit Charges Inpatient E&M: 25641 Init Hosp L3 Behavior Interventions Behavior Intervention: 05756 Smoking Cessation 3-10 min
[2022-03-26] MEDS: Furosemide 40 MG/4 ML Vial IV (13:11)
--- NOTE | 2022-03-26 18:39 | NURSING ---
Reviewed charting with Elie Orellana RN
[2022-03-26] MEDS: Escitalopram Oxalate 10 MG Tablet PO (21:28)
[2022-03-27] VITALS (20 sets, daily range): BP systolic 113–180; BP diastolic 62–81; PULSE 74–98; RESP 12–28; TEMP 36.4–36.8; O2SAT 92–98
[2022-03-27] MEDS: hydrALAZINE 20 MG/ML Vial 10 MG IV ×2 (02:32→21:06)
[2022-03-27] MEDS: 0.9% Saline Lock 10 ML Syringe IV (02:35)
--- NOTE | 2022-03-27 06:00 | RAD_ITS ---
STUDY: X-RAY CHEST REASON FOR EXAM: Female, 71 years old. Shortness of breath TECHNIQUE: Single frontal view of the chest. COMPARISON: Chest radiograph and CT dated 03/24/2022 FINDINGS: There is no new focal consolidation. There is a stable right basilar opacity that appears to be a confluence of shadows. There is cardiomegaly. Normal mediastinum and savanna. Normal visualized pulmonary arteries. Normal visualized aortic arch and descending thoracic aorta. Normal visualized thoracic spine. Normal visualized ribs, clavicles, and shoulders. There is no demonstrated abnormality of the visualized soft tissue structures of the upper abdomen. RAD/Chest 1 View (Portable) IMPRESSION: Cardiomegaly. Electronically Signed: Radha Pacheco MD at 8:42 EDT ,
--- NOTE | 2022-03-27 06:20 | PCM.PN.INT ---
Assessment & Plan Assessment/Plan (1) Acute respiratory failure with hypoxia: PLAN: Plan RECOMMENDATIONS: 1. Wean supplemental oxygen to maintain saturations at or above 90%. 2. Recommend BiPAP therapy as needed throughout the day and consistently at night. 3. Continue empiric antimicrobials. 4. Continue scheduled bronchodilators and IV steroids. 5. Check BNP and troponin. Obtain echocardiogram. 6. Continue appropriate DVT prophylaxis. IMPRESSIONS: 1. Acute hypoxemic respiratory failure secondary to presumptive COPD exacerbation Most likely precipitated by tracheobronchitis. No definitive infiltrate or consolidation was identified on chest imaging. Agree with continuing empiric antimicrobials along with scheduled bronchodilators and IV steroids. I would also advise the continued use of BiPAP therapy as needed throughout the day and consistently on a nightly basis. Goal to wean FiO2 to maintain saturations at or above 90%. It is reasonable to attempt gentle diuresis with IV Lasix. Given that the patient's respiratory status remains tenuous, will check troponin and BNP. In addition, echocardiogram will be obtained. Ultimately, the patient will require close outpatient pulmonary follow-up so that baseline PFTs can be obtained and inhaler regimen augmented/optimized. 2. History of schizophrenia/obesity/questionable sleep disordered breathing/chronic tobacco dependency Complicates care, management, recovery and prognosis. Continue home medications as indicated. Tobacco cessation counseling was provided. This note was generated with [employer] dictation software. It may contain incorrect words, spelling, and punctuation that were not noted in checking the note before signing. Subjective Subjective The patient was seen and examined at the bedside this morning. Events from the last 24 hours have been reviewed. The patient is currently afebrile, hemodynamically stable and maintaining appropriate oxygen saturations on BiPAP currently. The patient denies any resting shortness of breath and admits that the BiPAP makes it much easier for her to breathe. She is currently documented to be overall net +1.9 L for the hospitalization. White count remains elevated at 24,000. Objective Data Objective Data The patient's most recent lab work, culture data and imaging studies have all been personally reviewed. Infectious work-up has been unrevealing to date. Vital Signs: Vital Signs Temp Pulse Resp BP Pulse Ox O2 Del Method O2 Flow Rate 97.9 F 89 28 H 160/80 H 95 Bi-pap 60 03/27/22 03:05 03/27/22 03:33 03/27/22 03:33 03/27/22 03:05 03/27/22 03:33 03/27/22 03:05 03/27/22 01:40 FiO2 40 03/27/22 03:33 Oxygen Flow Rate (L/min) 60 Oxygen Delivery Method Bi-pap Weight: 223 lb 1.725 oz Body Mass Index (BMI) 38.1 Intake & Output: Intake and Output for Last 24 Hours 03/25/22 03/26/22 03/27/22 23:59 23:59 23:59 Intake Total 1640 / 1640 1240 / 1240 300 / 300 Output Total 1100 / 1100 Balance 1640 / 1640 140 / 140 300 / 300 Lab / Micro Data Attestation: I reviewed the patient's lab results. Result Diagrams: 03/26/22 05:52 03/25/22 06:15 Labs: Laboratory Results - last 24 hr 03/26/22 05:52: WBC 24.0 H, RBC 4.58, Hgb 13.2, Hct 41.9, MCV 91.5, MCH 28.8, MCHC 31.5 L, RDW Std Deviation 41.1, RDW Coeff of Jaspal 12.4, Plt Count 356, MPV 10.4, Immature Gran % (Auto) 0.700, Neut % (Auto) 89.7 H, Lymph % (Auto) 7.0 L, [place] % (Auto) 2.5, Eos % (Auto) 0.0, Baso % (Auto) 0.1, Absolute Neuts (auto) 21.5 H, Absolute Lymphs (auto) 1.67, Nucleated RBC % 0, Differential Comment , Platelet Estimate ADEQUATE, RBC Morphology NORM C+C Micro: Microbiology 03/25/22 09:13 Sputum, Expectorated/Coughed Gram Stain - Final 03/25/22 09:13 Sputum, Expectorated/Coughed Respiratory Culture - Preliminary Appears to be normal respiratory brent. Further studies to follow. 03/25/22 Unknown Urine, Clean Catch Streptococcus pneumoniae Antigen (M - Final 03/24/22 20:00 Urine, Clean Catch Legionella Antigen - Final 03/24/22 17:15 Interface Orders Respiratory Panel (PCR) - Final 03/24/22 15:27 Nasal Secretion SARS-CoV-2 Antigen (Rapid) - Final Physical Exam Const alert General Appearance: cooperative and on BiPAP Nutritional Appearance: obese HEENT normocephalic and head/scalp atraumatic Eyes PERRL, EOMs intact bilaterally and conjunctivae normal Neck supple General: trachea midline Chest inspection of chest normal Resp Effort and Inspection: tachypneic Auscultation: wheezes and diminished lung sounds Cardio regular rate, regular rhythm, S1 normal heart sound and S2 normal heart sound GI normal to inspection, nondistended, normoactive bowel sounds Extremity no clubbing, cyanosis or edema Skin no rashes or lesions noted Neuro oriented x3, moves all extremities and no focal motor deficits Psych cooperative and affect normal Charges/Coding Visit Charges Inpatient E&M: 33077 Subs Hosp L3
--- NOTE | 2022-03-27 07:09 | ECHOCS_ITS ---
Reason For Study: DYSPNEA/SOB Procedure This was a 2D Doppler, Color Flow transthoracic echocardiogram. The study was technically difficult. Due to COPD & body habitus. Exam performed portable in patient room. Left Ventricle Normal LV size. Mild concentric left ventricular hypertrophy. The left ventricular ejection fraction is 65 %. Diastolic function is indeterminate. Right Ventricle Normal right ventricle. Atria The left atrium is mildly enlarged. Normal right atrium. Lipomatous hypertrophy of the atrial septum. Mitral Valve The mitral valve is structurally normal. No prolapse or stenosis seen. Trivial mitral valve insufficiency. Tricuspid Valve Trivial tricuspid valve insufficiency. Right ventricular systolic pressure estimated to be 44 mmHg. Mild pulmonary hypertension. Aortic Valve The aortic valve is not well visualized. Mean aortic valve gradient 8.3 mmHg. Pulmonic Valve The pulmonic valve is not well visualized. Great Vessels Normal sized aortic root. Pericardium/Pleural No pericardial effusion. Epicardial fat. MMode/2D Measurements & Calculations LVIDd: 4.8 cm IVSd: 1.1 cm LVOT diam: 2.0 cm LVIDs: 3.4 cm LVPWd: 1.2 cm LVOT area: 3.2 cm2 RVDd: 3.0 cm FS: 28.6 % Ao root diam: 3.4 cm LAV(MOD-bp): 70.4 ml LVAd ap4: 25.7 cm2 LA dimension: 4.0 cm LAV(MOD-bp) Indexed: 34.3 ml/m2 LVLd ap4: 7.8 cm LAV(MOD-sp2): 67.7 ml EDV(MOD-sp4): 71.1 ml LAV(MOD-sp4): 71.6 ml EDV(sp4-el): 72.0 ml LVAs ap4: 11.2 cm2 LVLs ap4: 5.8 cm ESV(MOD-sp4): 19.5 ml ESV(sp4-el): 18.3 ml EF(MOD-sp4): 72.5 % EF(sp4-el): 74.6 % SV(MOD-sp4): 51.6 ml SV(sp4-el): 53.7 ml LA A4 area: 23.3 cm2 RA A4 area: 16.8 cm2 Time Measurements MV dec time: 0.16 sec Doppler Measurements & Calculations MV E max dao: 99.5 cm/sec Lat Peak E' Dao: 10.4 cm/sec Med Peak E' Dao: 10.4 cm/sec MV A max dao: 117.0 cm/sec E/E' lat: 9.5 E/E' med: 9.5 MV E/A: 0.85 Ao V2 max: 194.3 cm/sec LV V1 max: 162.0 cm/sec MV dec slope: 609.6 cm/sec2 Ao max P.2 mmHg LV V1 max P.5 mmHg Ao V2 mean: 135.8 cm/sec LV V1 mean P.9 mmHg Ao mean P.3 mmHg LV V1 mean: 116.1 cm/sec Ao V2 VTI: 41.7 cm LV V1 VTI: 32.9 cm PAUL(I,D): 2.5 cm2 PAUL(V,D): 2.7 cm2 SV(LVOT): 106.3 ml PA V2 max: 81.6 cm/sec TR max dao: 292.8 cm/sec TR max P.3 mmHg ECHO/Echo Complete W/ Contrast Interpretation Summary Mild concentric left ventricular hypertrophy. The left ventricular ejection fraction is 65 %. Diastolic function is indeterminate. The left atrium is mildly enlarged. Mild pulmonary hypertension. Mean aortic valve gradient 8.3 mmHg. Ordering Physician: Toro Ruvalcaba Referring Physician: Anthony Schwartz Performed By: Teri Kang RDCS, RVT
[2022-03-27] MEDS: Ipratropium/Albuterol Sulfate 3 ML AMPUL.NEB INHALATION ×4 (07:17→19:02)
--- NOTE | 2022-03-27 07:50 | PN.HOSP_ITS ---
Subjective Subjective Follow-up for acute hypoxic respiratory failure. Patient is still on BiPAP in the morning. Patient has cough and on Mucinex and Tessalon Perles. Objective Data Objective Data Vital Signs: Vital Signs Temp Pulse Resp BP Pulse Ox O2 Del Method O2 Flow Rate 97.9 F 89 28 H 160/80 H 95 Bi-pap 60 03/27/22 03:05 03/27/22 03:33 03/27/22 03:33 03/27/22 03:05 03/27/22 03:33 03/27/22 03:05 03/27/22 01:40 FiO2 40 03/27/22 03:33 Oxygen Flow Rate (L/min) 60 Oxygen Delivery Method Bi-pap Weight: 223 lb 15.834 oz Body Mass Index (BMI) 38.1 Intake & Output: Intake and Output for Last 24 Hours 03/25/22 03/26/22 03/27/22 23:59 23:59 23:59 Intake Total 1640 / 1640 1240 / 1240 400 / 400 Output Total 1100 / 1100 500 / 500 Balance 1640 / 1640 140 / 140 -100 / -100 Lab / Micro Data Result Diagrams: 03/27/22 07:37 03/27/22 07:37 Labs: Laboratory Results - last 24 hr 03/26/22 05:52: Differential Comment , Platelet Estimate ADEQUATE, RBC Morphology NORM C+C Micro: Microbiology 03/25/22 09:13 Sputum, Expectorated/Coughed Gram Stain - Final 03/25/22 09:13 Sputum, Expectorated/Coughed Respiratory Culture - Preliminary Appears to be normal respiratory brent. Further studies to follow. 03/25/22 Urine, Clean Catch Streptococcus pneumoniae Antigen (M - Final 03/24/22 20:00 Urine, Clean Catch Legionella Antigen - Final 03/24/22 17:15 Interface Orders Respiratory Panel (PCR) - Final 03/24/22 15:27 Nasal Secretion SARS-CoV-2 Antigen (Rapid) - Final Physical Exam Narrative Physical exam General: Awake, oriented x3. Fatigue due to shortness of breath. On BiPAP HEENT: Atraumatic, PERRLA, EOMI, Normocephalic Oral: On BiPAP Neck: Supple, No JVD, Negative Carotid Bruits Lungs: Air entry diminished in bilateral lung bases. Bilateral coarse rhonchi. Cardiovascular: Regular rate, Regular Rhythm, Normal S1, Normal S2, No murmurs Abdomen: Bowel Sounds Present, Soft, Non Tender, Non-Distended : No burning micturition. No renal angle tenderness. No suprapubic tenderness. Extremities: No edema, Capillary Refill Less than 3 Seconds Skin: No rashes, No breakdown Musculoskeletal: No Tenderness to Palpation of Joints or Extremities. ROM restricted Neurological: Cranial nerves II-XII grossly intact, DTR 2+. Psych/Mental Status: Flat affect. Schizophrenia. Assessment & Plan Assessment/Plan (1) Acute respiratory failure with hypoxia: (2) COPD exacerbation: (3) Leukocytosis: (4) Hyperglycemia: PLAN: Plan 71-year-old female admitted with 3 days of progressive shortness of breath, fatigue, dyspnea worse with exertion with nonproductive cough and severe wheezing consistent with acute hypoxic respiratory failure due to COPD exacerbation: 1. Acute hypoxic respiratory failure secondary to COPD exacerbation: Patient remains on and off BiPAP to Airvo. COVID antigen, respiratory panel negative. Sputum culture gram stain shows GPC, GNR but reported probably normal respiratory brent. Patient on IV Solu-Medrol, IV cefepime and vancomycin. Container Crane Operator following. Bronchodilator,Incentive spirometry and Pep 2. Leukocytosis, stable on serial monitor -Appears to be chronic but higher than baseline -Likely secondary to steroid use -Infectious work-up in progress -Procalcitonin is low at 0.06 Hyperglycemia -Likely reactive secondary to steroids -Current A1c is 5.5 Suspected COPD -Patient is not on any respiratory medications at baseline -Would recommend outpatient follow-up with pulmonary medicine after discharge -Place referral and discharge paperwork Patient Need outpatient PFTs Hypertension -Continue amlodipine History of DVT -Not currently on any anticoagulation -Timing is unclear History of schizophrenia -Continue Haldol -Continue home Lexapro Obesity -BMI 38.1 -Complicates treatment, prognosis, outcomes -Recommend weight loss Suspected MARK -Patient will need outpatient follow-up for sleep apnea study once she is clinically improved from a respiratory standpoint Tobacco abuse -Recommend cessation strongly -Nicotine replacement therapy if desired DVT prophylaxis -Lovenox -SCDs CODE STATUS -Full code Charges/Coding Visit Charges Inpatient E&M: 67093 Subs Hosp L2
[2022-03-27 08:37] LABS: Troponin-I HS 10 pg/mL (3.0-54.0)
[2022-03-27 08:54] LABS: BNP,B-Type NATRIURETIC PEPTIDE 108.8 pg/mL (0-100)
[2022-03-27] MEDS: Haloperidol 5 MG Tablet 2.5 MG PO ×2 (10:00→21:06)
[2022-03-27] MEDS: Enoxaparin 40 MG/0.4 ML Syringe SC (10:00)
[2022-03-27] MEDS: amLODIPine 5 MG Tablet PO (10:00)
[2022-03-27] MEDS: Benztropine Mesylate 0.5 MG TABLET PO (10:00)
[2022-03-27] MEDS: guaiFENesin 1,200 MG Tablet 1200 MG PO ×2 (10:01→21:08)
[2022-03-27] MEDS: Vancomycin IV 1,000 MG/200 ML BAG 200 MG IV ×2 (10:28→21:05)
[2022-03-27] MEDS: Benzonatate 100 MG Capsule 200 MG PO ×3 (10:28→21:29)
--- NOTE | 2022-03-27 11:56 | PCM.RX.CS ---
Consult Pharmacy has been consulted to manage selected antiobiotic: Vancomycin Type of Consult: Follow-up Prior Doses of Antibiotics Received/Current Regimen: Loading dose of 2gm iv x 1 on 03.25.22 , then started on 1gm iv q12h. Labs: Sodium 139 mmol/L (136-145) 03/25/22 06:15 Potassium 3.8 mmol/L (3.5-5.1) 03/25/22 06:15 Chloride 103 mmol/L (98-107) 03/25/22 06:15 Carbon Dioxide 31.0 mmol/L (21.0-32.0) 03/25/22 06:15 Anion Gap 5 (5-15) 03/25/22 06:15 BUN 13 mg/dL (7-18) 03/25/22 06:15 Creatinine 0.77 mg/dL (0.55-1.02) 03/25/22 06:15 Est GFR (MDRD) Af Amer 95 mL/min (>60) 03/25/22 06:15 Est GFR (MDRD) Non-Af 78 mL/min (>60) 03/25/22 06:15 BUN/Creatinine Ratio 16.8 RATIO (10-20) 03/25/22 06:15 Glucose 150 mg/dL (74-106) H 03/25/22 06:15 Vancomycin Trough 17.0 ug/mL (5.0-15.0) H 03/27/22 09:03 Microbiology: Microbiology 03/25/22 09:13 Sputum, Expectorated/Coughed Gram Stain - Final 03/25/22 09:13 Sputum, Expectorated/Coughed Respiratory Culture - Final 03/25/22 Unknown Urine, Clean Catch Streptococcus pneumoniae Antigen (M - Final 03/24/22 20:00 Urine, Clean Catch Legionella Antigen - Final 03/24/22 17:15 Interface Orders Respiratory Panel (PCR) - Final 03/24/22 15:27 Nasal Secretion SARS-CoV-2 Antigen (Rapid) - Final Weight used for dosin.6 kg Estimated Creatinine Clearance: 58 ml/min Goal Trough: 15-20 mcg/mL Pharmacy Plan for Drug Dosing: Trough today was 17 and in desired therapeutic range of 15-20 mcg/ml. Will continue same dosage and frequency. New trough ordered for 03.28.22 per policy. Pharmacy Service will continue to monitor and adjust dosing as required. Follow-Up Labs: Trough Vancomycin - 10.9.22 @2130 before 2200 dose
[2022-03-27 14:01] LABS: Absolute Lymphocyte Count 1.32 X10^3/uL (0.83-4.51); Absolute Neutrophil Count 18.1 X10^3/uL (2.0-7.7); Basophil# 0.01 X10^3/uL; Hematocrit 44.7 % (37-47); Hemoglobin 13.8 g/dL (12.0-15.0); Lymphocyte # 1.32 X10^3/ul (0.83-4.51); Lymphocyte % 6.5 % (19-41); Mean Corp Hgb Conc 30.9 g/dL (32-36); Mean Corpuscular Hgb 29.6 pg (27.0-32.0); Mean Corpuscular Volume 95.9 fL (81-99); Mean Platelet Vol. 10.8 fl (6.2-12.0); Monocyte# 0.68 X10^3/uL; Monocyte% 3.4 % (0-10); NRBC Flagged by Analyzer 0 % (0-5); Neutrophil # 18.12 X10^3/uL (2.7-7.7); Neutrophil % 89.4 % (47-70); Platelet Count 363 K/mm3 (150-450); RBC Distribution Width CV 12.2 % (11.6-14.6); RBC Distribution Width SD 43.6 fl (35.1-43.9); Red Blood Count 4.66 M/mm3 (4.2-5.4); White Blood Count 20.3 K/mm3 (4.4-11.0)
[2022-03-27 14:30] LABS: ALB/GLOB Ratio 0.8 RATIO (0.9-2.4); AST(SGOT) 28 U/L (15-37); Alanine Aminotransfer ALT/SGPT 37 U/L (13-56); Alkaline Phosphatase 127 U/L (45-117); Anion Gap 6 (5-15); BUN 25 mg/dL (7-18); BUN/Creat Ratio 32.4 RATIO (10-20); Calcium,Total 8.9 mg/dL (8.5-10.1); Chloride 103 mmol/L (98-107); Creatinine, Serum 0.77 mg/dL (0.55-1.02); EST Glomerular Filtration Rate 78 mL/min (>60); Est Glom Filt Rate - Afr Amer 95 mL/min (>60); Estimated Creatinine Clearance 44.56 ml/min; Glucose 123 mg/dL (74-106); Magnesium 2.5 mg/dL (1.6-2.6); Phosphorus 2.9 mg/dL (2.5-4.9); Potassium 4.7 mmol/L (3.5-5.1); Sodium Level 140 mmol/L (136-145)
[2022-03-27] MEDS: Escitalopram Oxalate 10 MG Tablet PO (22:16)
[2022-03-28] VITALS (22 sets, daily range): BP systolic 147–161; BP diastolic 67–104; PULSE 71–134; RESP 12–30; TEMP 36.5–36.8; O2SAT 91–100
[2022-03-28] MEDS: 0.9% Saline Lock 10 ML Syringe IV (00:47)
[2022-03-28] MEDS: Benzonatate 100 MG Capsule 200 MG PO ×3 (06:03→21:25)
[2022-03-28] MEDS: Ipratropium/Albuterol Sulfate 3 ML AMPUL.NEB INHALATION ×4 (06:57→19:26)
[2022-03-28 07:03] LABS: Absolute Lymphocyte Count 1.89 X10^3/uL (0.83-4.51); Absolute Neutrophil Count 14.2 X10^3/uL (2.0-7.7); Basophil# 0.02 X10^3/uL; Basophil% 0.1 % (0-1); Hemoglobin 14.5 g/dL (12.0-15.0); Lymphocyte # 1.89 X10^3/ul (0.83-4.51); Lymphocyte % 11.2 % (19-41); Mean Corp Hgb Conc 31.5 g/dL (32-36); Mean Corpuscular Hgb 29.2 pg (27.0-32.0); Mean Corpuscular Volume 92.6 fL (81-99); Mean Platelet Vol. 10.2 fl (6.2-12.0); Monocyte# 0.63 X10^3/uL; Monocyte% 3.7 % (0-10); NRBC Flagged by Analyzer 0 % (0-5); Neutrophil # 14.22 X10^3/uL (2.7-7.7); Neutrophil % 84.1 % (47-70); Platelet Count 368 K/mm3 (150-450); RBC Distribution Width SD 40.8 fl (35.1-43.9); Red Blood Count 4.97 M/mm3 (4.2-5.4); White Blood Count 16.9 K/mm3 (4.4-11.0)
--- NOTE | 2022-03-28 07:17 | PCM.PN.INT ---
Assessment & Plan Assessment/Plan (1) Acute respiratory failure with hypoxia: PLAN: Plan RECOMMENDATIONS: 1. Wean supplemental oxygen to maintain saturations at or above 90%. 2. Recommend BiPAP therapy as needed throughout the day and consistently at night. 3. Continue empiric antimicrobials. 4. Continue scheduled bronchodilators and IV steroids. 5. Continue appropriate DVT prophylaxis. IMPRESSIONS: 1. Acute hypoxemic respiratory failure secondary to presumptive COPD exacerbation Most likely precipitated by tracheobronchitis. No definitive infiltrate or consolidation was identified on chest imaging. Agree with continuing empiric antimicrobials along with scheduled bronchodilators and IV steroids. I would also advise the continued use of BiPAP therapy as needed throughout the day and consistently on a nightly basis. Goal to wean FiO2 to maintain saturations at or above 90%. It is reasonable to attempt gentle diuresis with IV Lasix. Ultimately, the patient will require close outpatient pulmonary follow-up so that baseline PFTs can be obtained and inhaler regimen augmented/optimized. 2. History of schizophrenia/obesity/questionable sleep disordered breathing/chronic tobacco dependency Complicates care, management, recovery and prognosis. Continue home medications as indicated. Tobacco cessation counseling was provided. This note was generated with [employer] dictation software. It may contain incorrect words, spelling, and punctuation that were not noted in checking the note before signing. Subjective Subjective The patient was seen and examined at the bedside this morning. Events from the last 24 hours have been reviewed. The patient is currently afebrile, hemodynamically stable and maintaining appropriate oxygen saturations on Airvo heated high flow with an FiO2 requirement of 50%. Objective Data Objective Data The patient's most recent lab work, culture data and imaging studies have all been personally reviewed. Infectious work-up has been unrevealing to date. Vital Signs: Vital Signs Temp Pulse Resp BP Pulse Ox O2 Del Method O2 Flow Rate 98.2 F 97 22 H 147/73 H 98 Airvo 60 03/28/22 05:04 03/28/22 05:04 03/28/22 05:04 03/28/22 07:00 03/28/22 05:04 03/28/22 06:43 03/28/22 06:43 FiO2 50 03/28/22 06:43 Oxygen Flow Rate (L/min) 60 Oxygen Delivery Method Airvo Weight: 220 lb 14.451 oz Body Mass Index (BMI) 38.1 Intake & Output: Intake and Output for Last 24 Hours 03/26/22 03/27/22 03/28/22 23:59 23:59 23:59 Intake Total 1240 / 1240 1987.5 / 1987.5 200 / 200 Output Total 1100 / 1100 1300 / 1300 250 / 250 Balance 140 / 140 687.5 / 687.5 -50 / -50 Lab / Micro Data Attestation: I reviewed the patient's lab results. Result Diagrams: 03/29/22 06:01 03/29/22 06:01 Labs: Laboratory Results - last 24 hr 03/27/22 07:37: WBC 20.3 H, RBC 4.66, Hgb 13.8, Hct 44.7, MCV 95.9, MCH 29.6, MCHC 30.9 L, RDW Std Deviation 43.6, RDW Coeff of Jaspal 12.2, Plt Count 363, MPV 10.8, Immature Gran % (Auto) 0.700, Neut % (Auto) 89.4 H, Lymph % (Auto) 6.5 L, Branch % (Auto) 3.4, Eos % (Auto) 0.0, Baso % (Auto) 0.0, Absolute Neuts (auto) 18.1 H, Absolute Lymphs (auto) 1.32, Nucleated RBC % 0 03/27/22 07:37: Sodium 140, Potassium 4.7, Chloride 103, Carbon Dioxide 31.0, Anion Gap 6, BUN 25 H, Creatinine 0.77, Estim Creat Clear Calc 44.56, Est GFR (MDRD) Af Amer 95, Est GFR (MDRD) Non-Af 78, BUN/Creatinine Ratio 32.4 H, Glucose 123 H, Calcium 8.9, Phosphorus 2.9, Magnesium 2.5, Total Bilirubin 0.40, AST 28, ALT 37, Alkaline Phosphatase 127 H, Total Protein 7.0, Albumin 3.0 L, Globulin 4.0, Albumin/Globulin Ratio 0.8 L 03/27/22 07:37: Troponin I High Sens 10 03/27/22 07:37: B-Natriuretic Peptide 108.8 H 03/27/22 09:03: Vancomycin Trough 17.0 H 03/28/22 05:10: WBC 16.9 H, RBC 4.97, Hgb 14.5, Hct 46.0, MCV 92.6, MCH 29.2, MCHC 31.5 L, RDW Std Deviation 40.8, RDW Coeff of Jaspal 12.0, Plt Count 368, MPV 10.2, Immature Gran % (Auto) 0.900, Neut % (Auto) 84.1 H, Lymph % (Auto) 11.2 L, Branch % (Auto) 3.7, Eos % (Auto) 0.0, Baso % (Auto) 0.1, Absolute Neuts (auto) 14.2 H, Absolute Lymphs (auto) 1.89, Nucleated RBC % 0 Micro: Microbiology 03/25/22 09:13 Sputum, Expectorated/Coughed Gram Stain - Final 03/25/22 09:13 Sputum, Expectorated/Coughed Respiratory Culture - Final 03/25/22 Unknown Urine, Clean Catch Streptococcus pneumoniae Antigen (M - Final 03/24/22 20:00 Urine, Clean Catch Legionella Antigen - Final 03/24/22 17:15 Interface Orders Respiratory Panel (PCR) - Final 03/24/22 15:27 Nasal Secretion SARS-CoV-2 Antigen (Rapid) - Final Radiography Diagnostic Testing: Radiology Impression Chest X-Ray 03/27/22 06:00 IMPRESSION: Cardiomegaly. Electronically Signed: Radha Pacheco MD at 8:42 EDT , Echocardiogram 03/27/22 07:09 Interpretation Summary Mild concentric left ventricular hypertrophy. The left ventricular ejection fraction is 65 %. Diastolic function is indeterminate. The left atrium is mildly enlarged. Mild pulmonary hypertension. Mean aortic valve gradient 8.3 mmHg. Ordering Physician: Toro Ruvalcaba Referring Physician: Anthony Schwartz Performed By: Teri Kang, LESIA, RVT Physical Exam Const alert General Appearance: cooperative Nutritional Appearance: obese HEENT normocephalic and head/scalp atraumatic Eyes PERRL, EOMs intact bilaterally and conjunctivae normal Neck supple General: trachea midline Chest inspection of chest normal Resp Auscultation: wheezes and diminished lung sounds Cardio regular rate, regular rhythm, S1 normal heart sound and S2 normal heart sound GI normal to inspection, nondistended, normoactive bowel sounds Extremity no clubbing, cyanosis or edema Skin no rashes or lesions noted Neuro oriented x3, moves all extremities and no focal motor deficits Psych cooperative and affect normal Charges/Coding Visit Charges Inpatient E&M: 32458 Subs Hosp L3
[2022-03-28 07:22] LABS: Anion Gap 4 (5-15); BUN 21 mg/dL (7-18); BUN/Creat Ratio 29.8 RATIO (10-20); Calcium,Total 8.8 mg/dL (8.5-10.1); Chloride 101 mmol/L (98-107); EST Glomerular Filtration Rate 87 mL/min (>60); Est Glom Filt Rate - Afr Amer 105 mL/min (>60); Estimated Creatinine Clearance 44.56 ml/min; Glucose 128 mg/dL (74-106); Potassium 4.2 mmol/L (3.5-5.1); Sodium Level 139 mmol/L (136-145)
[2022-03-28] MEDS: amLODIPine 5 MG Tablet PO (09:02)
[2022-03-28] MEDS: Enoxaparin 40 MG/0.4 ML Syringe SC (09:02)
[2022-03-28] MEDS: Haloperidol 5 MG Tablet 2.5 MG PO ×2 (09:02→21:24)
[2022-03-28] MEDS: Benztropine Mesylate 0.5 MG TABLET PO (09:02)
[2022-03-28] MEDS: guaiFENesin 1,200 MG Tablet 1200 MG PO ×2 (09:02→21:24)
--- NOTE | 2022-03-28 09:23 | PCM.PN.HOSP ---
Subjective Subjective Follow-up for acute respiratory failure Patient is still on Airvo and BiPAP. Has mild productive cough. Objective Data Objective Data Vital Signs: Vital Signs Temp Pulse Resp BP Pulse Ox O2 Del Method O2 Flow Rate 97.9 F 91 20 H 158/85 H 97 Airvo 60 03/28/22 08:56 03/28/22 08:56 03/28/22 08:56 03/28/22 08:56 03/28/22 08:56 03/28/22 08:56 03/28/22 08:56 FiO2 50 03/28/22 08:56 Oxygen Flow Rate (L/min) 60 Oxygen Delivery Method Airvo Weight: 220 lb 14.451 oz Body Mass Index (BMI) 38.1 Intake & Output: Intake and Output for Last 24 Hours 03/26/22 03/27/22 03/28/22 23:59 23:59 23:59 Intake Total 1240 / 1240 1987.5 / 1987.5 200 / 200 Output Total 1100 / 1100 1300 / 1300 250 / 250 Balance 140 / 140 687.5 / 687.5 -50 / -50 Lab / Micro Data Result Diagrams: 03/28/22 05:10 03/28/22 05:10 Labs: Laboratory Results - last 24 hr 03/27/22 07:37: WBC 20.3 H, RBC 4.66, Hgb 13.8, Hct 44.7, MCV 95.9, MCH 29.6, MCHC 30.9 L, RDW Std Deviation 43.6, RDW Coeff of Jaspal 12.2, Plt Count 363, MPV 10.8, Immature Gran % (Auto) 0.700, Neut % (Auto) 89.4 H, Lymph % (Auto) 6.5 L, Benzie % (Auto) 3.4, Eos % (Auto) 0.0, Baso % (Auto) 0.0, Absolute Neuts (auto) 18.1 H, Absolute Lymphs (auto) 1.32, Nucleated RBC % 0 03/27/22 07:37: Sodium 140, Potassium 4.7, Chloride 103, Carbon Dioxide 31.0, Anion Gap 6, BUN 25 H, Creatinine 0.77, Estim Creat Clear Calc 44.56, Est GFR (MDRD) Af Amer 95, Est GFR (MDRD) Non-Af 78, BUN/Creatinine Ratio 32.4 H, Glucose 123 H, Calcium 8.9, Phosphorus 2.9, Magnesium 2.5, Total Bilirubin 0.40, AST 28, ALT 37, Alkaline Phosphatase 127 H, Total Protein 7.0, Albumin 3.0 L, Globulin 4.0, Albumin/Globulin Ratio 0.8 L 03/27/22 09:03: Vancomycin Trough 17.0 H 03/28/22 05:10: WBC 16.9 H, RBC 4.97, Hgb 14.5, Hct 46.0, MCV 92.6, MCH 29.2, MCHC 31.5 L, RDW Std Deviation 40.8, RDW Coeff of Jaspal 12.0, Plt Count 368, MPV 10.2, Immature Gran % (Auto) 0.900, Neut % (Auto) 84.1 H, Lymph % (Auto) 11.2 L, Benzie % (Auto) 3.7, Eos % (Auto) 0.0, Baso % (Auto) 0.1, Absolute Neuts (auto) 14.2 H, Absolute Lymphs (auto) 1.89, Nucleated RBC % 0 03/28/22 05:10: Sodium 139, Potassium 4.2, Chloride 101, Carbon Dioxide 34.0 H, Anion Gap 4 L, BUN 21 H, Creatinine 0.70, Estim Creat Clear Calc 44.56, Est GFR (MDRD) Af Amer 105, Est GFR (MDRD) Non-Af 87, BUN/Creatinine Ratio 29.8 H, Glucose 128 H, Calcium 8.8 Micro: Microbiology 03/25/22 09:13 Sputum, Expectorated/Coughed Gram Stain - Final 03/25/22 09:13 Sputum, Expectorated/Coughed Respiratory Culture - Final 03/25/22 Unknown Urine, Clean Catch Streptococcus pneumoniae Antigen (M - Final 03/24/22 20:00 Urine, Clean Catch Legionella Antigen - Final 03/24/22 17:15 Interface Orders Respiratory Panel (PCR) - Final 03/24/22 15:27 Nasal Secretion SARS-CoV-2 Antigen (Rapid) - Final Radiography Diagnostic Testing: Radiology Impression Echocardiogram 03/27/22 07:09 Interpretation Summary Mild concentric left ventricular hypertrophy. The left ventricular ejection fraction is 65 %. Diastolic function is indeterminate. The left atrium is mildly enlarged. Mild pulmonary hypertension. Mean aortic valve gradient 8.3 mmHg. Physical Exam Narrative Physical exam General: Awake, oriented x3. shortness of breath. On Airvo during daytime and BiPAP at night HEENT: Atraumatic, PERRLA, EOMI, Normocephalic Oral: On BiPAP Neck: Supple, No JVD, Negative Carotid Bruits Lungs: Air entry diminished in bilateral lung bases. Bilateral coarse rhonchi and crepitations Cardiovascular: Regular rate, Regular Rhythm, Normal S1, Normal S2, No murmurs Abdomen: Bowel Sounds Present, Soft, Non Tender, Non-Distended : No burning micturition. No renal angle tenderness. No suprapubic tenderness. Extremities: No edema, Capillary Refill Less than 3 Seconds Skin: No rashes, No breakdown Musculoskeletal: No Tenderness to Palpation of Joints or Extremities. ROM restricted Neurological: Cranial nerves II-XII grossly intact, DTR 2+. Psych/Mental Status: Flat affect. Schizophrenia. Assessment & Plan Assessment/Plan (1) Acute respiratory failure with hypoxia: (2) COPD exacerbation: (3) Leukocytosis: (4) Hyperglycemia: PLAN: Plan 71-year-old female admitted with 3 days of progressive shortness of breath, fatigue, dyspnea worse with exertion with nonproductive cough and severe wheezing consistent with acute hypoxic respiratory failure due to COPD exacerbation: 1. Acute hypoxic respiratory failure secondary to COPD exacerbation: Patient remains on and off BiPAP to Airvo. COVID antigen, respiratory panel negative. Sputum culture gram stain shows GPC, GNR Patient on IV Solu-Medrol, IV cefepime and vancomycin. Diagnostic Technologist following. Bronchodilator,Incentive spirometry and Pep 03/28: Patient is still on 50% FiO2, 60 L/min air Vo. Was on BiPAP at night.Sputum culture shows mixed normal respiratory brent. Continue IV antibiotic. 2. Leukocytosis, stable on serial monitor -Appears to be chronic but higher than baseline -Likely secondary to steroid use -Procalcitonin is low at 0.06 Hyperglycemia -Likely reactive secondary to steroids -Current A1c is 5.5 Suspected COPD -Patient is not on any respiratory medications at baseline -Would recommend outpatient follow-up with pulmonary medicine after discharge -Place referral and discharge paperwork Patient Need outpatient PFTs Hypertension -Continue amlodipine History of DVT -Not currently on any anticoagulation -Timing is unclear History of schizophrenia -Continue Haldol -Continue home Lexapro Obesity -BMI 38.1 -Complicates treatment, prognosis, outcomes -Recommend weight loss Suspected MARK -Patient will need outpatient follow-up for sleep apnea study once she is clinically improved from a respiratory standpoint Tobacco abuse -Recommend cessation strongly -Nicotine replacement therapy if desired DVT prophylaxis -Lovenox -SCDs CODE STATUS -Full code Charges/Coding Visit Charges Inpatient E&M: 43867 Subs Hosp L2
[2022-03-28] MEDS: Vancomycin IV 1,000 MG/200 ML BAG 200 MG IV ×2 (09:58→21:25)
[2022-03-28] MEDS: Escitalopram Oxalate 10 MG Tablet PO (21:25)
[2022-03-28 22:35] LABS: Vancomycin, Trough Level 14.1 ug/mL (5.0-15.0)
[2022-03-29] VITALS (25 sets, daily range): BP systolic 145–163; BP diastolic 66–125; PULSE 62–99; RESP 12–28; TEMP 36.3–37; O2SAT 93–99
[2022-03-29] MEDS: hydrALAZINE 20 MG/ML Vial 10 MG IV (04:45)
--- NOTE | 2022-03-29 04:53 | PCM.RX.CS ---
Consult Pharmacy has been consulted to manage selected antiobiotic: Vancomycin Type of Consult: Follow-up Labs: Sodium 139 mmol/L (136-145) 03/28/22 05:10 Potassium 4.2 mmol/L (3.5-5.1) 03/28/22 05:10 Chloride 101 mmol/L (98-107) 03/28/22 05:10 Carbon Dioxide 34.0 mmol/L (21.0-32.0) H 03/28/22 05:10 Anion Gap 4 (5-15) L 03/28/22 05:10 BUN 21 mg/dL (7-18) H 03/28/22 05:10 Creatinine 0.70 mg/dL (0.55-1.02) 03/28/22 05:10 Est GFR (MDRD) Af Amer 105 mL/min (>60) 03/28/22 05:10 Est GFR (MDRD) Non-Af 87 mL/min (>60) 03/28/22 05:10 BUN/Creatinine Ratio 29.8 RATIO (10-20) H 03/28/22 05:10 Glucose 128 mg/dL (74-106) H 03/28/22 05:10 Vancomycin Trough 14.1 ug/mL (5.0-15.0) 03/28/22 21:40 Microbiology: Microbiology 03/25/22 09:13 Sputum, Expectorated/Coughed Gram Stain - Final 03/25/22 09:13 Sputum, Expectorated/Coughed Respiratory Culture - Final 03/25/22 Unknown Urine, Clean Catch Streptococcus pneumoniae Antigen (M - Final 03/24/22 20:00 Urine, Clean Catch Legionella Antigen - Final 03/24/22 17:15 Interface Orders Respiratory Panel (PCR) - Final 03/24/22 15:27 Nasal Secretion SARS-CoV-2 Antigen (Rapid) - Final Goal Trough: 15-20 mcg/mL Pharmacy Plan for Drug Dosing: Pharmacy Service will continue to monitor and adjust dosing as required. TROUGH 14.1 NOT CLEAR OF TIME OF START VS LAB DRAW. REDRAW TROUGH WITH NEXT DOSE Follow-Up Labs: Trough Vancomycin Labs to be done on [date and time ordered]: 03/29 @ 1258
[2022-03-29] MEDS: Benzonatate 100 MG Capsule 200 MG PO ×3 (05:02→22:50)
[2022-03-29 06:39] LABS: Absolute Neutrophil Count 11.7 X10^3/uL (2.0-7.7); Basophil# 0.01 X10^3/uL; Basophil% 0.1 % (0-1); Hematocrit 43.6 % (37-47); Lymphocyte % 11.5 % (19-41); Mean Corp Hgb Conc 32.1 g/dL (32-36); Mean Corpuscular Hgb 29.3 pg (27.0-32.0); Mean Corpuscular Volume 91.2 fL (81-99); Mean Platelet Vol. 10.1 fl (6.2-12.0); Monocyte# 0.52 X10^3/uL; Monocyte% 3.7 % (0-10); NRBC Flagged by Analyzer 0 % (0-5); Neutrophil # 11.68 X10^3/uL (2.7-7.7); Neutrophil % 83.8 % (47-70); Platelet Count 330 K/mm3 (150-450); RBC Distribution Width CV 11.9 % (11.6-14.6); RBC Distribution Width SD 39.9 fl (35.1-43.9); Red Blood Count 4.78 M/mm3 (4.2-5.4); White Blood Count 13.9 K/mm3 (4.4-11.0)
[2022-03-29 07:07] LABS: Anion Gap 3 (5-15); BUN 20 mg/dL (7-18); BUN/Creat Ratio 31.1 RATIO (10-20); Calcium,Total 8.5 mg/dL (8.5-10.1); Chloride 101 mmol/L (98-107); Creatinine, Serum 0.64 mg/dL (0.55-1.02); EST Glomerular Filtration Rate 96 mL/min (>60); Est Glom Filt Rate - Afr Amer 117 mL/min (>60); Estimated Creatinine Clearance 44.56 ml/min; Glucose 133 mg/dL (74-106); Potassium 4.1 mmol/L (3.5-5.1); Sodium Level 138 mmol/L (136-145)
[2022-03-29] MEDS: Ipratropium/Albuterol Sulfate 3 ML AMPUL.NEB INHALATION ×4 (07:11→21:02)
--- NOTE | 2022-03-29 09:32 | PN.CC_ITS ---
Assessment & Plan Assessment/Plan (1) Acute respiratory failure with hypoxia: PLAN: Plan RECOMMENDATIONS: 1. Wean supplemental oxygen to maintain saturations at or above 90%. 2. Recommend BiPAP therapy as needed throughout the day and consistently at night. 3. Continue empiric antimicrobials. 4. Continue scheduled bronchodilators and IV steroids. 5. Continue appropriate DVT prophylaxis. IMPRESSIONS: 1. Acute hypoxemic respiratory failure secondary to presumptive COPD exacerbation Most likely precipitated by tracheobronchitis. No definitive infiltrate or consolidation was identified on chest imaging. Agree with continuing empiric antimicrobials along with scheduled bronchodilators and IV steroids. I would also advise the continued use of BiPAP therapy as needed throughout the day and consistently on a nightly basis. Goal to wean FiO2 to maintain saturations at or above 90%. It is reasonable to attempt gentle diuresis with IV Lasix to maintain euvolemic state. Ultimately, the patient will require close outpatient pulmonary follow-up so that baseline PFTs can be obtained and inhaler regimen augmented/optimized. 2. History of schizophrenia/obesity/questionable sleep disordered breathing/chr onic tobacco dependency Complicates care, management, recovery and prognosis. Continue home medications as indicated. Tobacco cessation counseling was provided. This note was generated with [employer] dictation software. It may contain incorrect words, spelling, and punctuation that were not noted in checking the note before signing. Subjective Subjective The patient was seen and examined at the bedside this morning. Events from the last 24 hours have been reviewed. The patient is currently afebrile, hemod ynamically stable and maintaining appropriate oxygen saturations on 4 L/min via nasal cannula. The patient has been tolerant of nocturnal BiPAP support. She is currently documented to be overall net +3 L for the hospitalization. Objective Data Objective Data The patient's most recent lab work, culture data and imaging studies have all been personally reviewed. Infectious work-up has been unrevealing to date. Vital Signs: Vital Signs Temp Pulse Resp BP Pulse Ox O2 Del Method O2 Flow Rate 98.6 F 72 20 H 163/73 H 98 Nasal Cannula 5 03/29/22 04:00 03/29/22 07:40 03/29/22 07:40 03/29/22 04:45 03/29/22 07:15 03/29/22 09:20 03/29/22 09:20 FiO2 40 03/29/22 07:15 Oxygen Flow Rate (L/min) 5 Oxygen Delivery Method Nasal Cannula Weight: 223 lb 5.252 oz Body Mass Index (BMI) 38.1 Intake & Output: Intake and Output for Last 24 Hours 03/27/22 03/28/22 03/29/22 23:59 23:59 23:59 Intake Total 1987.5 / 1987.5 1500 / 1500 400 / 400 Output Total 1300 / 1300 1250 / 1250 300 / 300 Balance 687.5 / 687.5 250 / 250 100 / 100 Lab / Micro Data Attestation: I reviewed the patient's lab results. Result Diagrams: 03/29/22 06:01 03/29/22 06:01 Labs: Laboratory Results - last 24 hr 03/28/22 21:40: Vancomycin Trough 14.1 03/29/22 06:01: WBC 13.9 H, RBC 4.78, Hgb 14.0, Hct 43.6, MCV 91.2, MCH 29.3, MCHC 32.1, RDW Std Deviation 39.9, RDW Coeff of Jaspal 11.9, Plt Count 330, MPV 10.1, Immature Gran % (Auto) 0.900, Neut % (Auto) 83.8 H, Lymph % (Auto) 11.5 L, [place] % (Auto) 3.7, Eos % (Auto) 0.0, Baso % (Auto) 0.1, Absolute Neuts (auto) 11.7 H, Absolute Lymphs (auto) 1.60, Nucleated RBC % 0 03/29/22 06:01: Sodium 138, Potassium 4.1, Chloride 101, Carbon Dioxide 34.0 H, Anion Gap 3 L, BUN 20 H, Creatinine 0.64, Estim Creat Clear Calc 44.56, Est GFR (MDRD) Af Amer 117, Est GFR (MDRD) Non-Af 96, BUN/Creatinine Ratio 31.1 H, Glucose 133 H, Calcium 8.5 Micro: Microbiology 03/25/22 09:13 Sputum, Expectorated/Coughed Gram Stain - Final 03/25/22 09:13 Sputum, Expectorated/Coughed Respiratory Culture - Final 03/25/22 Unknown Urine, Clean Catch Streptococcus pneumoniae Antigen (M - F inal 03/24/22 20:00 Urine, Clean Catch Legionella Antigen - Final 03/24/22 17:15 Interface Orders Respiratory Panel (PCR) - Final 03/24/22 15:27 Nasal Secretion SARS-CoV-2 Antigen (Rapid) - Final Radiography Diagnostic Testing: Radiology Impression Chest X-Ray 03/27/22 06:00 IMPRESSION: Cardiomegaly. Electronically Signed: Radha Pacheco MD at 8:42 EDT Reading Location ID and State: [facility] / [place] Tel , Service support , Echocardiogram 03/27/22 07:09 Interpretation Summary Mild concentric left ventricular hypertrophy. The left ventricular ejection fraction is 65 %. Diastolic function is indeterminate. The left atrium is mildly enlarged. Mild pulmonary hypertension. Mean aortic valve gradient 8.3 mmHg. Ordering Physician: Toro Ruvalcaba Referring Physician: Anthony Schwartz Performed By: Teri Kang, LESIA, RVT Physical Exam Const alert General Appearance: cooperative Nutritional Appearance: obese HEENT normocephalic and head/scalp atraumatic Eyes PERRL, EOMs intact bilaterally and conjunctivae normal Neck supple General: trachea midline Chest inspection of chest normal Resp Effort and Inspection: tachypneic Auscultation: wheezes and diminished lung sounds Cardio regular rate, regular rhythm, S1 normal heart sound and S2 normal heart sound GI normal to inspection, nondistended, normoactive bowel sounds Extremity no clubbing, cyanosis or edema Skin no rashes or lesions noted Neuro oriented x3, moves all extremities and no focal motor deficits Psych cooperative and affect normal Charges/Coding Visit Charges Inpatient E&M: 28004 Subs Hosp L2
[2022-03-29 09:42] LABS: Vancomycin, Trough Level 15.4 ug/mL (5.0-15.0)
[2022-03-29] MEDS: Benztropine Mesylate 0.5 MG TABLET PO (10:48)
[2022-03-29] MEDS: Enoxaparin 40 MG/0.4 ML Syringe SC (10:49)
[2022-03-29] MEDS: amLODIPine 5 MG Tablet PO (10:49)
[2022-03-29] MEDS: guaiFENesin 1,200 MG Tablet 1200 MG PO ×2 (10:49→22:51)
[2022-03-29] MEDS: Haloperidol 5 MG Tablet 2.5 MG PO ×2 (10:49→22:51)
[2022-03-29] MEDS: Vancomycin IV 1,000 MG/200 ML BAG 200 MG IV (10:50)
--- NOTE | 2022-03-29 10:54 | PCM.RX.CS ---
Consult Pharmacy has been consulted to manage selected antiobiotic: Vancomycin Type of Consult: Follow-up Labs: Sodium 138 mmol/L (136-145) 03/29/22 06:01 Potassium 4.1 mmol/L (3.5-5.1) 03/29/22 06:01 Chloride 101 mmol/L (98-107) 03/29/22 06:01 Carbon Dioxide 34.0 mmol/L (21.0-32.0) H 03/29/22 06:01 Anion Gap 3 (5-15) L 03/29/22 06:01 BUN 20 mg/dL (7-18) H 03/29/22 06:01 Creatinine 0.64 mg/dL (0.55-1.02) 03/29/22 06:01 Est GFR (MDRD) Af Amer 117 mL/min (>60) 03/29/22 06:01 Est GFR (MDRD) Non-Af 96 mL/min (>60) 03/29/22 06:01 BUN/Creatinine Ratio 31.1 RATIO (10-20) H 03/29/22 06:01 Glucose 133 mg/dL (74-106) H 03/29/22 06:01 Vancomycin Trough 15.4 ug/mL (5.0-15.0) H 03/29/22 09:10 Microbiology: Microbiology 03/25/22 09:13 Sputum, Expectorated/Coughed Gram Stain - Final 03/25/22 09:13 Sputum, Expectorated/Coughed Respiratory Culture - Final 03/25/22 Unknown Urine, Clean Catch Streptococcus pneumoniae Antigen (M - Final 03/24/22 20:00 Urine, Clean Catch Legionella Antigen - Final 03/24/22 17:15 Interface Orders Respiratory Panel (PCR) - Final 03/24/22 15:27 Nasal Secretion SARS-CoV-2 Antigen (Rapid) - Final Goal Trough: 15-20 mcg/mL Pharmacy Plan for Drug Dosing: VANCOMYCIN LEVEL RECEIVED Current Vancomycin Dose: 1000mg q12h () Number of Doses Received: Vancomycin Level: 15.4 Hours Since Last Dose: 12 hours Renal Function: SrCr 0.64 Renal Function Trend: SrCr stable Lab/Micro: Vancomycin Plan/Comments: resulted trough of 15.4 is within the ordered goal trough range of 15-20. recommend continuing current dose of 1000mg q12h and checking trough in 4 more doses Pending Level: 03/31/22 at 0930 Pharmacy Service will continue to monitor and adjust dosing as required. Follow-Up Labs: Trough Vancomycin - 03/31/22 at 0930
--- NOTE | 2022-03-29 13:44 | PN.HOSP_ITS ---
Subjective Subjective Follow-up for acute hypoxic respiratory failure. Patient is still has cough and mild shortness of breath. Currently requires 4 L of oxygen. Objective Data Objective Data Vital Signs: Vital Signs Temp Pulse Resp BP Pulse Ox O2 Del Method O2 Flow Rate 98.1 F 98 19 H 150/68 H 95 Nasal Cannula 4 03/29/22 12:28 03/29/22 12:28 03/29/22 12:28 03/29/22 12:28 03/29/22 12:28 03/29/22 12:28 03/29/22 12:28 FiO2 40 03/29/22 10:45 Oxygen Flow Rate (L/min) 4 Oxygen Delivery Method Nasal Cannula Weight: 223 lb 5.252 oz Body Mass Index (BMI) 38.1 Intake & Output: Intake and Output for Last 24 Hours 03/27/22 03/28/22 03/29/22 23:59 23:59 23:59 Intake Total 1987.5 / 1987.5 1500 / 1500 600 / 600 Output Total 1300 / 1300 1250 / 1250 300 / 300 Balance 687.5 / 687.5 250 / 250 300 / 300 Lab / Micro Data Result Diagrams: 03/29/22 06:01 03/29/22 06:01 Labs: Laboratory Results - last 24 hr 03/28/22 21:40: Vancomycin Trough 14.1 03/29/22 06:01: WBC 13.9 H, RBC 4.78, Hgb 14.0, Hct 43.6, MCV 91.2, MCH 29.3, MCHC 32.1, RDW Std Deviation 39.9, RDW Coeff of Jaspal 11.9, Plt Count 330, MPV 10.1, Immature Gran % (Auto) 0.900, Neut % (Auto) 83.8 H, Lymph % (Auto) 11.5 L, [place] % (Auto) 3.7, Eos % (Auto) 0.0, Baso % (Auto) 0.1, Absolute Neuts (auto) 11.7 H, Absolute Lymphs (auto) 1.60, Nucleated RBC % 0 03/29/22 06:01: Sodium 138, Potassium 4.1, Chloride 101, Carbon Dioxide 34.0 H, Anion Gap 3 L, BUN 20 H, Creatinine 0.64, Estim Creat Clear Calc 44.56, Est GFR (MDRD) Af Amer 117, Est GFR (MDRD) Non-Af 96, BUN/Creatinine Ratio 31.1 H, Glucose 133 H, Calcium 8.5 03/29/22 09:10: Vancomycin Trough 15.4 H Micro: Microbiology 03/25/22 09:13 Sputum, Expectorated/Coughed Gram Stain - Final 03/25/22 09:13 Sputum, Expectorated/Coughed Respiratory Culture - Final 03/25/22 Unknown Urine, Clean Catch Streptococcus pneumoniae Antigen (M - Final 03/24/22 20:00 Urine, Clean Catch Legionella Antigen - Final 03/24/22 17:15 Interface Orders Respiratory Panel (PCR) - Final 03/24/22 15:27 Nasal Secretion SARS-CoV-2 Antigen (Rapid) - Final Physical Exam Narrative Physical exam General: Awake, oriented x3. shortness of breath. On high flow oxygen during daytime, BiPAP at night. HEENT: Atraumatic, PERRLA, EOMI, Normocephalic Oral: Oral mucosa moist. Neck: Supple, No JVD, Negative Carotid Bruits Lungs: Air entry diminished in bilateral lung bases. Bilateral coarse rhonchi and crepitations Cardiovascular: Regular rate, Regular Rhythm, Normal S1, Normal S2, No murmurs Abdomen: Bowel Sounds Present, Soft, Non Tender, Non-Distended : No burning micturition. No renal angle tenderness. No suprapubic tenderness. Extremities: No edema, Capillary Refill Less than 3 Seconds Skin: No rashes, No breakdown Musculoskeletal: No Tenderness to Palpation of Joints or Extremities. ROM restricted Neurological: Cranial nerves II-XII grossly intact, DTR 2+. Psych/Mental Status: Flat affect. Schizophrenia. Assessment & Plan Assessment/Plan (1) Acute respiratory failure with hypoxia: (2) COPD exacerbation: (3) Leukocytosis: (4) Hyperglycemia: PLAN: Plan 71-year-old female admitted with 3 days of progressive shortness of breath, fatigue, dyspnea worse with exertion with nonproductive cough and severe wheezing consistent with acute hypoxic respiratory failure due to COPD exacerbation: 1. Acute hypoxic respiratory failure secondary to COPD exacerbation: Patient remains on and off BiPAP to [employer]. COVID antigen, respiratory panel negative. Sputum culture gram stain shows GPC, GNR Patient on IV Solu-Medrol, IV cefepime and vancomycin. [employer] Operator Helper following. Bronchodilator,Incentive spirometry and Pep 03/28: Patient is still on 50% FiO2, 60 L/min air Vo. Was on BiPAP at night.Sputum culture shows mixed normal respiratory brent. Continue IV antibiotic. 03/29: Patient requires high oxygen, NIPPV BiPAP. Discussed with the dependency case manager might need SNF where she can be on oxygen/NIPPV. Encouraged incentive spirometry and PEP.Patient did not had fever. Vancomycin discontinued as she had since admission.Solu-Medrol changed to prednisone 40 mg daily 2. Leukocytosis, stable on serial monitor -Appears to be chronic but higher than baseline -Likely secondary to steroid use -Procalcitonin is low at 0.06 Hyperglycemia -Likely reactive secondary to steroids -Current A1c is 5.5 Suspected COPD -Patient is not on any respiratory medications at baseline - outpatient follow-up with pulmonary medicine after discharge Patient Need outpatient PFTs Hypertension -Continue amlodipine History of DVT -Not currently on any anticoagulation -Timing is unclear History of schizophrenia -Continue Haldol -Continue home Lexapro Obesity -BMI 38.1 -Complicates treatment, prognosis, outcomes -Recommend weight loss Suspected MARK -Patient will need outpatient follow-up for sleep apnea study once she is clinically improved from a respiratory standpoint Tobacco abuse -Recommend cessation strongly -Nicotine replacement therapy if desired DVT prophylaxis -Lovenox -SCDs CODE STATUS -Full code Microbiology Past 72 Hours 03/25/22 09:13 Sputum, Expectorated/Coughed Gram Stain - Final 03/25/22 09:13 Sputum, Expectorated/Coughed Respiratory Culture - Final Laboratory Results 03/28/22 21:40: Vancomycin Trough 14.1 03/29/22 06:01: WBC 13.9 H, RBC 4.78, Hgb 14.0, Hct 43.6, MCV 91.2, MCH 29.3, MCHC 32.1, RDW Std Deviation 39.9, RDW Coeff of Jaspal 11.9, Plt Count 330, MPV 10.1, Immature Gran % (Auto) 0.900, Neut % (Auto) 83.8 H, Lymph % (Auto) 11.5 L, [place] % (Auto) 3.7, Eos % (Auto) 0.0, Baso % (Auto) 0.1, Absolute Neuts (auto) 11.7 H, Absolute Lymphs (auto) 1.60, Nucleated RBC % 0 03/29/22 06:01: Sodium 138, Potassium 4.1, Chloride 101, Carbon Dioxide 34.0 H, Anion Gap 3 L, BUN 20 H, Creatinine 0.64, Estim Creat Clear Calc 44.56, Est GFR (MDRD) Af Amer 117, Est GFR (MDRD) Non-Af 96, BUN/Creatinine Ratio 31.1 H, Glucose 133 H, Calcium 8.5 03/29/22 09:10: Vancomycin Trough 15.4 H Charges/Coding Visit Charges Inpatient E&M: 97606 Subs Hosp L2
--- NOTE | 2022-03-29 15:52 | CASEMGMT ---
Patient is likely going to be ready for discharge tomorrow. Patient is still requiring O2 so she will not be able to return to the alf. Patient told JOSE MIGUEL if she cannot go back to the alf she wants to go to [place]. JOSE MIGUEL sent a referral to [place] via [facility]. Sandy JOYNER
--- NOTE | 2022-03-29 16:01 | CASEMGMT ---
Discharge Laborer Drying Department [facility] reached out patient has been accepted. Norma asked [facility] to start pre-cert. Plan: [facility], Waiting Pre-cert Norma Walker Discharge Laborer Drying Department
--- NOTE | 2022-03-29 18:09 | NURSING ---
Charting reviewed with Marco Arroyo RN
[2022-03-29] MEDS: 0.9% Saline Lock 10 ML Syringe IV (22:48)
[2022-03-29] MEDS: Escitalopram Oxalate 10 MG Tablet PO (22:51)
[2022-03-30] VITALS (19 sets, daily range): BP systolic 120–155; BP diastolic 49–98; PULSE 74–98; RESP 19–24; TEMP 36.5–37.2; O2SAT 93–100
[2022-03-30] MEDS: Ipratropium/Albuterol Sulfate 3 ML AMPUL.NEB INHALATION ×6 (04:30→23:01)
[2022-03-30] MEDS: Benzonatate 100 MG Capsule 200 MG PO ×3 (05:23→21:18)
--- NOTE | 2022-03-30 08:43 | PCM.PN.INT ---
Assessment & Plan Assessment/Plan (1) Acute respiratory failure with hypoxia: PLAN: Plan RECOMMENDATIONS: 1. Wean supplemental oxygen to maintain saturations at or above 90%. 2. Recommend BiPAP therapy as needed throughout the day and consistently with sleep. 3. Continue empiric antimicrobials. 4. Continue scheduled bronchodilators. Wean steroids over the next 12 to 14 days 5. Continue appropriate DVT prophylaxis. IMPRESSIONS: 1. Acute hypoxemic respiratory failure secondary to presumptive COPD exacerbation Most likely precipitated by tracheobronchitis. No definitive infiltrate or consolidation was identified on chest imaging. Agree with continuing empiric antimicrobials along with scheduled bronchodilators. Wean steroids over the next 12 to 14 days. I would also advise the continued use of BiPAP therapy as needed throughout the day and consistently on a nightly basis. Goal to wean FiO2 to maintain saturations at or above 90%. It is reasonable to attempt gentle diuresis with IV Lasix to maintain euvolemic state. Ultimately, the patient will require close outpatient pulmonary follow-up so that baseline PFTs can be obtained and inhaler regimen augmented/optimized. Unfortunately, cultures have not been helpful in delineating an etiology. Likely okay to complete a 7-day course of antibiotics 2. History of schizophrenia/obesity/questionable sleep disordered breathing/chronic tobacco dependency Complicates care, management, recovery and prognosis. Continue home medications as indicated. Tobacco cessation counseling was provided. This note was generated with [employer] dictation software. It may contain incorrect words, spelling, and punctuation that were not noted in checking the note before signing. Subjective Subjective Patient did okay overnight. Patient was found sleeping off of BiPAP therapy. Saturations were in the upper 80s on baseline nasal cannula. Apneic events were noted. Patient states that she feels subjectively slightly improved compared to yesterday. Patient does not wear supplemental oxygen at baseline per her report. Objective Data Objective Data Vital Signs: Vital Signs Temp Pulse Resp BP Pulse Ox O2 Del Method O2 Flow Rate 36.5 C L 98 19 H 143/71 H 95 Nasal Cannula 3.5 03/30/22 04:28 03/30/22 06:43 03/30/22 06:43 03/30/22 04:28 03/30/22 06:43 03/30/22 06:43 03/30/22 06:43 FiO2 40 03/29/22 16:00 Oxygen Flow Rate (L/min) 3.5 Oxygen Delivery Method Nasal Cannula Weight: 101.5 kg Body Mass Index (BMI) 38.1 Intake & Output: Intake and Output for Last 24 Hours 03/28/22 03/29/22 03/30/22 23:59 23:59 23:59 Intake Total 1500 / 1500 1545 / 1545 100 / 100 Output Total 1250 / 1250 750 / 950 400 / 400 Balance 250 / 250 795 / 595 -300 / -300 Lab / Micro Data Attestation: I reviewed the patient's lab results. Result Diagrams: 03/29/22 06:01 03/29/22 06:01 Labs: Laboratory Results - last 24 hr 03/29/22 09:10: Vancomycin Trough 15.4 H Micro: Microbiology 03/25/22 09:13 Sputum, Expectorated/Coughed Gram Stain - Final 03/25/22 09:13 Sputum, Expectorated/Coughed Respiratory Culture - Final 03/25/22 Unknown Urine, Clean Catch Streptococcus pneumoniae Antigen (M - Final 03/24/22 20:00 Urine, Clean Catch Legionella Antigen - Final 03/24/22 17:15 Interface Orders Respiratory Panel (PCR) - Final 03/24/22 15:27 Nasal Secretion SARS-CoV-2 Antigen (Rapid) - Final Physical Exam Const Constitutional Narrative: Resting comfortably. General Appearance: cooperative Nutritional Appearance: obese HEENT normocephalic, head/scalp atraumatic and moist oral mucous membranes Eyes PERRL, EOMs intact bilaterally and conjunctivae normal Neck supple General: trachea midline Chest inspection of chest normal Resp Auscultation: wheezes and diminished lung sounds; Negative for rales or rhonchi Cardio regular rate, regular rhythm, S1 normal heart sound, S2 normal heart sound, no murmurs, no rub and no gallops GI normal to inspection, nondistended, normoactive bowel sounds Extremity no clubbing, cyanosis or edema Skin no rashes or lesions noted Neuro oriented x3, moves all extremities and no focal motor deficits Psych cooperative and affect normal Charges/Coding Visit Charges Inpatient E&M: 65619 Subs Hosp L2
[2022-03-30] MEDS: Haloperidol 5 MG Tablet 2.5 MG PO ×2 (09:22→21:18)
[2022-03-30] MEDS: Enoxaparin 40 MG/0.4 ML Syringe SC (09:22)
[2022-03-30] MEDS: amLODIPine 5 MG Tablet PO (09:22)
[2022-03-30] MEDS: Benztropine Mesylate 0.5 MG TABLET PO (09:22)
[2022-03-30] MEDS: guaiFENesin 1,200 MG Tablet 1200 MG PO ×2 (09:22→21:18)
[2022-03-30] MEDS: predniSONE 20 MG Tablet 40 MG PO (09:26)
--- NOTE | 2022-03-30 10:44 | CASEMGMT ---
JOSE MIGUEL spoke with patient this am and she confirmed she wants to go back to [facility] since she cannot go back to the [facility] on O2. SW let patient know [facility] can take her once her insurance gives the okay. JOSE MIGUEL also let patient know that SW will notify her family welfare social work professor at [facility]. Patient verbalized understanding. JOSE MIGUEL called [facility] and asked for Mami, patient's family welfare social work professor. However, JOSE MIGUEL was re-directed to Alison Benites, the [facility]. JOSE MIGUEL left Alison a voice mail letting her know patient will be going to [facility] as she will still on O2. JOSE MIGUEL let Alison know that we are just waiting on patient's insurance to approve. JOSE MIGUEL also left JOSE MIGUEL's phone number. Sandy JOYNER
--- NOTE | 2022-03-30 12:00 | PCM.PN.HOSP ---
Subjective Subjective Follow-up for acute hypoxic respiratory failure Shortness of breath and cough better. Patient sitting on the chair. Objective Data Objective Data Vital Signs: Vital Signs Temp Pulse Resp BP Pulse Ox O2 Del Method O2 Flow Rate 98.2 F 76 21 H 146/98 H 94 Nasal Cannula 3.5 03/30/22 10:00 03/30/22 10:45 03/30/22 10:45 03/30/22 10:00 03/30/22 10:00 03/30/22 10:00 03/30/22 10:00 FiO2 40 03/30/22 10:00 Oxygen Flow Rate (L/min) 3.5 Oxygen Delivery Method Nasal Cannula Weight: 223 lb 12.307 oz Body Mass Index (BMI) 38.1 Intake & Output: Intake and Output for Last 24 Hours 03/28/22 03/29/22 03/30/22 23:59 23:59 23:59 Intake Total 1500 / 1500 1545 / 1545 100 / 100 Output Total 1250 / 1250 750 / 950 400 / 400 Balance 250 / 250 795 / 595 -300 / -300 Lab / Micro Data Result Diagrams: 03/29/22 06:01 03/29/22 06:01 Micro: Microbiology 03/25/22 09:13 Sputum, Expectorated/Coughed Gram Stain - Final 03/25/22 09:13 Sputum, Expectorated/Coughed Respiratory Culture - Final 03/25/22 Unknown Urine, Clean Catch Streptococcus pneumoniae Antigen (M - Final 03/24/22 20:00 Urine, Clean Catch Legionella Antigen - Final 03/24/22 17:15 Interface Orders Respiratory Panel (PCR) - Final 03/24/22 15:27 Nasal Secretion SARS-CoV-2 Antigen (Rapid) - Final Physical Exam Narrative Physical exam General: Awake, oriented x3. Patient on about 4 L of oxygen. Looks better. HEENT: Atraumatic, PERRLA, EOMI, Normocephalic Oral: Oral mucosa moist. Neck: Supple, No JVD, Negative Carotid Bruits Lungs: Air entry diminished in bilateral lung bases. Bilateral coarse rhonchi and crepitations improving Cardiovascular: Regular rate, Regular Rhythm, Normal S1, Normal S2, No murmurs Abdomen: Bowel Sounds Present, Soft, Non Tender, Non-Distended : No burning micturition. No renal angle tenderness. No suprapubic tenderness. Extremities: No edema, Capillary Refill Less than 3 Seconds Skin: No rashes, No breakdown Musculoskeletal: No Tenderness to Palpation of Joints or Extremities. ROM restricted Neurological: Cranial nerves II-XII grossly intact, DTR 2+. Psych/Mental Status: Flat affect. Schizophrenia. Assessment & Plan Assessment/Plan (1) Acute respiratory failure with hypoxia: PLAN: Plan 71-year-old female admitted with 3 days of progressive shortness of breath, fatigue, dyspnea worse with exertion with nonproductive cough and severe wheezing consistent with acute hypoxic respiratory failure due to COPD exacerbation: 1. Acute hypoxic respiratory failure secondary to COPD exacerbation: Patient remains on and off BiPAP to [facility]. COVID antigen, respiratory panel negative. Sputum culture gram stain shows GPC, GNR Patient on IV Solu-Medrol, IV cefepime and vancomycin. Interactive Media Specialist following. Bronchodilator,Incentive spirometry and Pep 03/28: Patient is still on 50% FiO2, 60 L/min air Vo. Was on BiPAP at night.Sputum culture shows mixed normal respiratory brent. Continue IV antibiotic. 03/29: Patient requires high oxygen, NIPPV BiPAP. Discussed with the case assistant might need SNF where she can be on oxygen/NIPPV. Encouraged incentive spirometry and PEP.Patient did not had fever. Vancomycin discontinued as she had since admission.Solu-Medrol changed to prednisone 40 mg daily 03/30: Patient on 3.5 L of oxygen. Continue BiPAP support at night. Discussed with case assistant . 2. Leukocytosis, stable on serial monitor -Appears to be chronic but higher than baseline -Likely secondary to steroid use -Procalcitonin is low at 0.06 Hyperglycemia -Likely reactive secondary to steroids -Current A1c is 5.5 Suspected COPD -Patient is not on any respiratory medications at baseline - outpatient follow-up with pulmonary medicine after discharge Patient Need outpatient PFTs Hypertension -Continue amlodipine History of DVT -Not currently on any anticoagulation -Timing is unclear History of schizophrenia -Continue Haldol -Continue home Lexapro Obesity -BMI 38.1 -Complicates treatment, prognosis, outcomes -Recommend weight loss Suspected MARK -Patient will need outpatient follow-up for sleep apnea study once she is clinically improved from a respiratory standpoint Tobacco abuse -Recommend cessation strongly -Nicotine replacement therapy if desired DVT prophylaxis -Lovenox -SCDs CODE STATUS -Full code Microbiology Past 72 Hours 03/25/22 09:13 Sputum, Expectorated/Coughed Gram Stain - Final 03/25/22 09:13 Sputum, Expectorated/Coughed Respiratory Culture - Final Laboratory Results 03/28/22 21:40: Vancomycin Trough 14.1 03/29/22 06:01: WBC 13.9 H, RBC 4.78, Hgb 14.0, Hct 43.6, MCV 91.2, MCH 29.3, MCHC 32.1, RDW Std Deviation 39.9, RDW Coeff of Jaspal 11.9, Plt Count 330, MPV 10.1, Immature Gran % (Auto) 0.900, Neut % (Auto) 83.8 H, Lymph % (Auto) 11.5 L, [place] % (Auto) 3.7, Eos % (Auto) 0.0, Baso % (Auto) 0.1, Absolute Neuts (auto) 11.7 H, Absolute Lymphs (auto) 1.60, Nucleated RBC % 0 03/29/22 06:01: Sodium 138, Potassium 4.1, Chloride 101, Carbon Dioxide 34.0 H, Anion Gap 3 L, BUN 20 H, Creatinine 0.64, Estim Creat Clear Calc 44.56, Est GFR (MDRD) Af Amer 117, Est GFR (MDRD) Non-Af 96, BUN/Creatinine Ratio 31.1 H, Glucose 133 H, Calcium 8.5 03/29/22 09:10: Vancomycin Trough 15.4 H Charges/Coding Visit Charges Inpatient E&M: 14503 Subs Hosp L2
--- NOTE | 2022-03-30 13:38 | ST.MBS ---
Modified Barium Swallow - Patient Information Study Date: 03/30/22 Study Time: 13:45 Direct Billable Minutes: 100 Total Minutes procedure & reportin Diagnosis: COPD exacerbation (J44.1) Referring Physician: Hernán Berg Reason for Referral: Objectively assess swallow function, risk for aspiration, and determine recommendations for least restrictive diet textures and compensatory strategies to improve safety of swallow. Medical History: The patient is a 71 y/o F w/ PMHx: Morbid Obesity, HTN, Tobacco use, Schizophrenia unclear type, Hx VTE, COPD who presented to the [facility] ED on 03/24/22 with history of 3 days of progressively worsening fatigue, malaise, dyspnea which was worse with exertion with associated non-productive cough with severe wheezing not improving with outpatient treatments with significant rhinorrhea as well as mild congestion with no associated fever or chills with no recent ill contacts in the nursing home prompting ED referral. In the ED patient initially significantly hypoxic with increased work of breathing accessory muscle usage as well as notable tachycardia with per physician report initially required 6 to 8 L nasal cannula however patient eventually improved and was transitioned down to 4 L nasal cannula noted to be 96% on room air. She was admitted for management of COPD exacerbation with hypoxia. She was referred for speech consult to assess physician concerns for aspiration. In Shift Clinical Findings from 03/27/2022-03/29/2022, the patient had inspiratory/expiratory wheezes with rhonchi throughout all lobes. COMMUNITY REINVESTMENT ACT OFFICER evaluated at bedside and recommended the patient continue Regular textures / Thin liquids - distant supervision. MBSS planned for today, 03/30/2022, to rule out risk for silent aspiration due to increased shortness of breath after oral intake, history of COPD with current hospitalization for COPD exacerbation, and rhoncorous lung sounds with wheezes mentioned earlier - frequency for dysphagia therapy to be determined following MBSS. Current Diet Ordered: Regular textures / Thin liquids Dentition: Missing Teeth Mental Status: WNL - Followed commands WNL to participate in the study Respiratory Status: Oxygenating on 4L/M nasal cannula - Penetration-Aspiration Scale Penetration-Aspiration Scale: OBJECTIVE ASSESSMENT OF SWALLOW FUNCTION (QUANTITATIVE ? PER TRIAL): PENETRATION / ASPIRATION SCALE (HILLMAN): 1 = does not enter airway 2 = enters airway/above vocal folds/ejected 3 = enters airway/above vocal folds/not ejected 4 = enters airway/contacts vocal folds/ejected 5 = enters airway/contacts vocal folds/not ejected 6 = enters airway/below vocal folds/ejected 7 = enters airway/below vocal folds/not ejected despite effort 8 = enters airway/below vocal folds/no effort VIDEOFLOROSCOPIC SCALE SCORE (HILLMAN): Grade I = aspiration of material that has penetrated into the laryngeal vestibule, intact cough reflex Grade II = aspiration < 10 % of the bolus, intact cough reflex Grade III = aspiration of < 10 % of the bolus, reduced cough reflex or aspiration of > 10 % of the bolus, intact cough reflex Grade IV = aspiration of > 10 % of the bolus, reduced cough reflex - Penetration-Aspiration Scale Score Thin Liquid via teaspoon Result: 2= enter airway/above vocal folds/ejected Thin Liquid via teaspoon Trial 2 Result: 2= enter airway/above vocal folds/ejected Thin Liquid via small single sip from cup Result: 2= enter airway/above vocal folds/ejected Thin Liquid via sequential sips from cup Result: 2= enter airway/above vocal folds/ejected [place] Thick Liquid via small single sip from cup Result: 1= does not enter airway Honey Thick Liquid via small single sip from cup Result: 1= does not enter airway Pudding via teaspoon Result: 1= does not enter airway 1/2 Cookie Result: 1= does not enter airway Thin Liquid via sequential sips from straw Result: 1= does not enter airway - Oral Phase Labial Seal: No Labial Escape Tongue Control During Bolus Hold: Posterior escape of less than half of bolus Bolus Transport/Lingual Motion: Delayed initiation of tongue motion Oral Residue: Trace residue lining oral structures - Pharyngeal Phase Initiation of Pharyngeal Swallow: Bolus head at posterior laryngeal surgace of epiglottis Soft Palate Elevation: Trace column of contrast/air between soft palate and pharyngeal wall Laryngeal Elevation: Partial superior movement thyroid cart/partial apprx aryt-epig petiole Anterior Hyoid Excursion: Partial anterior movement Epiglottic Movement: Complete inversion Laryngeal Vestibule Closure at Height of Swallow: Incomplete; narrow column of air/contrast in laryngeal vestibule Pharyngeal Stripping Wave: Present - complete Pharyngoesophageal Segment Opening: Complete distension and complete duration; no obstruction of flow Tongue Base Retraction: Trace column of contrast between tongue base & post. pharyngeal wall Pharyngeal Residue: Trace residue within or on pharyngeal structures - Esophageal Phase Esophageal Clearance: Complete clearance - Diagnosis/Impression Diagnosis: Mild oropharyngeal phase dysphagia (R13.12) Impression: The oral phase is primarily marked by... -Decreased bolus control, primarily observed with premature posterior loss of <1/2 of thin liquid boluses to the posterior surface of the epiglottis prior to swallow onset. -Prolonged, but adequate mastication abilities. -Trace oral residue. The pharyngeal phase is primarily marked by... -Mild delay initiating the swallow. -Mildly decreased laryngeal elevation and anterior hyoid excursion. -Laryngeal penetration of tsp, single cup, and sequential cup trials of thin liquids, which did fully eject from the laryngeal vestibule after the swallow. No aspiration observed during the study. She did present with coughing intermittently between trials. Fluoroscopy turned on for a delayed cough and no contrast appeared in the laryngeal vestibule. Cough appeared to be unrelated to laryngeal penetration or aspiration. -Trace pharyngeal residue after the swallow. - Recommendations Diet: Regular Textures, Thin Liquids Compensatory Strategies: Small Bites, Small Sips, Slow Rate, Sitting upright Recommend Repeat Modified Barium Swallow: No Need for Skilled Speech Therapy Services: Yes Comment: Will recommend the patient for follow-up dysphagia therapy (3-5X/week, X1-2 weeks) to address mild deficits in oropharyngeal swallow function. Will recommend the patient for oropharyngeal strengthening to improve bolus strength/control, anterior hyoid excursion, and laryngeal elevation (lingual resistance exercises, CTAR, Patricio). The patient would benefit from education regarding recommended compensatory strategies to decrease risk for aspiration. Education Completed: 1. Described result of evaluation., 2. Pt understands evaluation & agrees with goals and treatment plan., 7. Pt requires further education on strategies & risks. - Status Active ST Patient: Active - Contact Information [facility] Speech Therapy:: Mellisa Neal M.A. [facility]-COMMUNITY REINVESTMENT ACT OFFICER Speech-Language Pathologist [facility] [address] [place] [address] [phone] 03/30/22 15:11
[2022-03-30] MEDS: Escitalopram Oxalate 10 MG Tablet PO (21:18)
[2022-03-31] VITALS (13 sets, daily range): BP systolic 146–160; BP diastolic 50–77; PULSE 70–93; RESP 12–20; TEMP 36.6–37.1; O2SAT 94–97
--- NOTE | 2022-03-31 03:35 | EKG12_ITS ---
Test Reason : RHYTHM CHANGE Blood Pressure : / mmHG Vent. Rate : 080 BPM Atrial Rate : 080 BPM P-R Int : 160 ms QRS Dur : 074 ms QT Int : 370 ms P-R-T Axes : 044 004 103 degrees QTc Int : 426 ms Normal sinus rhythm Nonspecific T wave abnormality Abnormal ECG When compared with ECG of 24-MAR-2022 15:29, Borderline criteria for Inferior infarct are no longer Present Nonspecific T wave abnormality now evident in Anterior leads T wave inversion no longer evident in Lateral leads Confirmed by ZOE PURVIS, HARVEY ([id number]), purchase request editor ENEIDA LARA ([id number]) on 04/01/2022 12:51:32 PM Referred By: Confirmed By:HARVEY ENRIQUEZ MD
[2022-03-31] MEDS: Benzonatate 100 MG Capsule 200 MG PO ×2 (05:02→13:02)
[2022-03-31] MEDS: 0.9% Saline Lock 10 ML Syringe IV (05:02)
[2022-03-31 06:59] LABS: Absolute Lymphocyte Count 3.99 X10^3/uL (0.83-4.51); Absolute Neutrophil Count 12.7 X10^3/uL (2.0-7.7); Basophil# 0.04 X10^3/uL; Basophil% 0.2 % (0-1); Eosinophil# 0.22 X10^3/uL; Eosinophils% 1.2 % (0-5); Hematocrit 43.4 % (37-47); Hemoglobin 13.8 g/dL (12.0-15.0); Lymphocyte # 3.99 X10^3/ul (0.83-4.51); Lymphocyte % 21.4 % (19-41); Mean Corp Hgb Conc 31.8 g/dL (32-36); Mean Corpuscular Volume 91.2 fL (81-99); Mean Platelet Vol. 9.9 fl (6.2-12.0); Monocyte# 1.54 X10^3/uL; Monocyte% 8.3 % (0-10); NRBC Flagged by Analyzer 0 % (0-5); Neutrophil # 12.72 X10^3/uL (2.7-7.7); Neutrophil % 68.4 % (47-70); POSITIVE DIFFERENTIAL YES; Platelet Count 298 K/mm3 (150-450); Red Blood Count 4.76 M/mm3 (4.2-5.4); White Blood Count 18.6 K/mm3 (4.4-11.0)
[2022-03-31 07:01] LABS: Differential Indicated SCAN CRITERIA MET
[2022-03-31 07:16] LABS: Differential Comment SCANNED
[2022-03-31] MEDS: Ipratropium/Albuterol Sulfate 3 ML AMPUL.NEB INHALATION ×3 (07:26→14:08)
[2022-03-31 07:31] LABS: Anion Gap 0 (5-15); BUN 15 mg/dL (7-18); BUN/Creat Ratio 29.8 RATIO (10-20); Calcium,Total 8.1 mg/dL (8.5-10.1); Chloride 102 mmol/L (98-107); EST Glomerular Filtration Rate 128 mL/min (>60); Est Glom Filt Rate - Afr Amer 155 mL/min (>60); Estimated Creatinine Clearance 44.56 ml/min; Glucose 90 mg/dL (74-106); Potassium 3.3 mmol/L (3.5-5.1); Sodium Level 140 mmol/L (136-145)
--- NOTE | 2022-03-31 08:41 | PN.CC_ITS ---
Assessment & Plan Assessment/Plan (1) Acute respiratory failure with hypoxia: PLAN: Plan RECOMMENDATIONS: 1. Wean supplemental oxygen to maintain saturations at or above 90%. Walki ng oximetry prior to discharge 2. Recommend BiPAP therapy as needed throughout the day and consistently with sleep. 3. Continue empiric antimicrobials to complete 7 to 10 days. 4. Continue scheduled bronchodilators. Wean steroids over the next 12 to 14 days 5. Continue appropriate DVT prophylaxis. IMPRESSIONS: 1. Acute hypoxemic respiratory failure secondary to presumptive COPD exacerbation Most likely precipitated by tracheobronchitis. No definitive infiltrate or consolidation was identified on chest imaging. Agree with continuing empiric antimicrobials along with scheduled bronchodilators. Wean steroids over the next 12 to 14 days. I would also advise the continued use of BiPAP therapy as needed throughout the day and consistently on a nightly basis. Goal to wean FiO2 to maintain saturations at or above 90%. It is reasonable to attempt gentle diuresis with IV Lasix to maintain euvolemic state. Ultimately, the pat ient will require close outpatient pulmonary follow-up so that baseline PFTs can be obtained and inhaler regimen augmented/optimized. Patient instructed that she must wear her BiPAP with any sleep. This will likely need to be continued quickly after discharge. 2. History of schizophrenia/obesity/questionable sleep disordered breathing/chronic tobacco dependency Complicates care, management, recovery and prognosis. Continue home medications as indicated. Tobacco cessation counseling was provided. This note was generated with Tianji dictation software. It may contain incorrect words, spelling, and punctuation that were not noted in checking the note before signing. Subjective Subjective Patient subjectively feels improved compared to previous. Patient was found sleeping on her nasal cannula oxygen saturating 60%. Patient did improved to 94% with waking. Patient is stating her cough is improved. Patient still has some shortness of breath with ambulation. Objective Data Objective Data Vital Signs: Vital Signs Temp Pulse Resp BP Pulse Ox O2 Del Method O2 Flow Rate 36.9 C 81 18 160/77 H 96 Nasal Cannula 2 03/31/22 03:20 03/31/22 07:15 03/31/22 07:15 03/31/22 03:20 03/31/22 07:53 03/31/22 08:03 03/31/22 08:03 FiO2 40 03/30/22 16:00 Oxygen Flow Rate (L/min) 2 Oxygen Delivery Method Nasal Cannula Weight: 101.3 kg Body Mass Index (BMI) 38.1 Intake & Output: Intake and Output for Last 24 Hours 03/29/22 03/30/22 03/31/22 23:59 23:59 23:59 Intake Total 1545 / 1545 1200 / 1260 205 / 205 Output Total 750 / 950 600 / 600 500 / 500 Balance 795 / 595 600 / 660 -295 / -295 Lab / Micro Data Attestation: I reviewed the patient's lab results. Result Diagrams: 03/31/22 06:35 03/31/22 06:35 Labs: Laboratory Results - last 24 hr 03/31/22 06:35: WBC 18.6 H, RBC 4.76, Hgb 13.8, Hct 43.4, MCV 91.2, MCH 29.0, MCHC 31.8 L, RDW Std Deviation 40.0, RDW Coeff of Jaspal 12.0, Plt Count 298, MPV 9.9, Immature Gran % (Auto) 0.500, Neut % (Auto) 68.4, Lymph % (Auto) 21.4, [place] % (Auto) 8.3, Eos % (Auto) 1.2, Baso % (Auto) 0.2, Absolute Neuts (auto) 12.7 H, Absolute Lymphs (auto) 3.99, Nucleated RBC % 0, Differential Comment SCANNED, Diff Path Review October03/31/22 06:35: Sodium 140, Potassium 3.3 L, Chloride 102, Carbon Dioxide 38.0 H , Anion Gap 0 L, BUN 15, Creatinine 0.50 L, Estim Creat Clear Calc 44.56, Est GFR (MDRD) Af Amer 155, Est GFR (MDRD) Non-Af 128, BUN/Creatinine Ratio 29.8 H, Glucose 90, Calcium 8.1 L Micro: Microbiology 03/25/22 09:13 Sputum, Expectorated/Coughed Gram Stain - Final 03/25/22 09:13 Sputum, Expectorated/Coughed Respiratory Culture - Final 03/25/22 Unknown Urine, Clean Catch Streptococcus pneumoniae Antigen (M - Final 03/24/22 20:00 Urine, Clean Catch Legionella Antigen - Final 03/24/22 17:15 Interface Orders Respiratory Panel (PCR) - Final 03/24/22 15:27 Nasal Secretion SARS-CoV-2 Antigen (Rapid) - Final Physical Exam Const Constitutional Narrative: Sleeping off of BiPAP initially with witnessed apnea events. Slightly cyanotic initially, but improved with waking. General Appearance: cooperative Nutritional Appearance: obese HEENT normocephalic, head/scalp atraumatic and moist oral mucous membranes Eyes PERRL, EOMs intact bilaterally and conjunctivae normal Neck supple General: trachea midline Chest inspection of chest normal Resp Auscultation: diminished lung sounds; Negative for rales, rhonchi or wheezes Cardio regular rate, regular rhythm, S1 normal heart sound, S2 normal heart sound, no murmurs, no rub and no gallops GI normal to inspection, nondistended, normoactive bowel sounds Extremity no clubbing, cyanosis or edema Skin no rashes or lesions noted Neuro oriented x3, moves all extremities and no focal motor deficits Psych cooperative and affect normal Charges/Coding Visit Charges Inpatient E&M: 39538 Subs Hosp L2
[2022-03-31] MEDS: predniSONE 20 MG Tablet 40 MG PO (09:25)
[2022-03-31] MEDS: Enoxaparin 40 MG/0.4 ML Syringe SC (09:25)
[2022-03-31] MEDS: amLODIPine 5 MG Tablet PO (09:26)
[2022-03-31] MEDS: Benztropine Mesylate 0.5 MG TABLET PO (09:26)
[2022-03-31] MEDS: guaiFENesin 1,200 MG Tablet 1200 MG PO (09:26)
--- NOTE | 2022-03-31 09:26 | PCM.TXEXTCAR ---
Diet Diet Order/Speech Therapy: 03/26/22 20:03 Diet: Cardiac - Heart Healthy Is pt able to select menu?: Yes Routine Orders/Code Status Suppository Type: Dulcolax 10mg Suppository Frequency: Daily PRN Code Status: Full Code Therapies Weight Bearing: Weight bearing as tolerated Extremity Affected:: Bilateral Lower Physical Therapy: Eval and Treat Occupational Therapy: Eval and Treat Speech Therapy: Eval and Treat Problem/Diagnosis (1) Acute respiratory failure with hypoxia: Status: Acute Code(s): J96.01 - Acute respiratory failure with hypoxia Allergies/Procedures Done in Hospital Allergies Penicillins Allergy (Verified 03/31/22 13:49) Hives Type of Care/Length of Stay Estimated LOS: Convalescent Care Less Than 30 days Type of Care Needed: Skilled Rehab Potential: Good Prognosis: Good Additional Orders/Day of Discharge Day of Discharge: 03/31/22 Dietary and Speech Recommendations Dietitian Recommendations/Changes: Continue Cardiac diet. Discharge Plan Admission Admit Date/Time: 03/24/22 16:13 Primary Reason for Your Visit: Acute hypoxic respiratory failure Attending Provider: Hernán Berg Primary Care Provider: Anthony Schwartz Consulting Providers: Kaycee Stauffer ; Kwame Jones ; Toro Ruvalcaba ; Alonso Brito ; Gino Cespedes ; Sanjuana Armendariz NP ; Nikki Gupta Discharge Orders/Prescriptions Prescriptions: New acetaminophen [Tylenol] 325 mg Tablet 650 mg PO Q4H PRN PRN (Reason: Fever, pain 1-10/10) Qty: 0 0RF ipratropium-albuterol 0.5 mg-3 mg(2.5 mg base)/3 mL Solution For Nebulization 3 ml inhalation Q4HWA.RT PRN (Reason: SOB) Qty: 0 0RF sennosides-docusate sodium [Stool Softener-Stimulant Laxat] 8.6-50 mg Tablet 2 tab PO BID PRN PRN (Reason: Constipation) Qty: 0 0RF benzonatate 100 mg Capsule 200 mg PO TID PRN (Reason: cough) Qty: 0 0RF Mucus Relief ER 1,200 mg Tablet Extended Release 12hr 1,200 mg PO BID Qty: 14 0RF prednisone 10 mg tablets,dose pack See Taper PO DAILY Qty: 30 0RF Taper: Prednisone Taper 40 mg WITH BREAKFAST for 3 Days and 0 Hour 30 mg WITH BREAKFAST for 3 Days and 0 Hour 20 mg WITH BREAKFAST for 3 Days and 0 Hour 10 mg WITH BREAKFAST for 3 Days and 0 Hour Continued haloperidol 5 MG tablet 2.5 mg PO BID amlodipine 5 MG tablet 5 mg PO DAILY benztropine 1 MG tablet 0.5 mg PO DAILY cholecalciferol (vitamin D3) [Vitamin D3] 1,000 UNIT capsule 1,000 unit PO DAILY loratadine 10 MG tablet 10 mg PO DAILY PRN (Reason: Allergy Symptoms) escitalopram oxalate 10 MG tablet 10 mg PO QHS Referrals / Follow Up: Anthony Schwartz MD [Primary Care Provider] - Disposition Disposition (needs filled in before D/C Order can be placed): [facility]
[2022-03-31] MEDS: Haloperidol 5 MG Tablet 2.5 MG PO (09:29)
--- NOTE | 2022-03-31 10:29 | CASEMGMT ---
SW sent updates to [facility] via [facility]. SW also inquired if they have heard from insurance. Sandy Pedraza MANAGER ORDER ANYA
[2022-03-31] MEDS: Potassium Chloride Oral Tablet 20 MEQ 40 MEQ PO ×2 (13:02→15:11)
[2022-03-31 13:47] LABS: Pathologist Review Reviewed
--- NOTE | 2022-03-31 13:52 | PCM.DC.SUM ---
Providers Date of Admission: 03/24/22 Date of Discharge: 03/31/22 Primary Care Physician: Dr. Anthony Schwartz MD Consultations 03/26/22 12:03 Consult: Embedded Firmware Developer / Pulmonary Medicine Routine Consulting Provider: Pulmonary Medicine terri Frederick Reason for Consult: Acute hypoxic respiratory failure EMERGENT Consult: No MD Notified: Yes Date Notified: 03/26/22 Time Notified: 12:03 Method of Notification: Verbal Reason For Visit: COPD EXACERBATION, HYPOXIA Diagnosis Discharge Diagnosis (1) Acute respiratory failure with hypoxia: Status: Acute Code(s): J96.01 - Acute respiratory failure with hypoxia Medications at Discharge Home Medications amlodipine 5 mg tablet 5 mg PO DAILY BP 10/07/17 benztropine 1 mg tablet 0.5 mg PO DAILY PARKINSONS 10/07/17 cholecalciferol (vitamin D3) 25 mcg (1,000 unit) capsule (Vitamin D3) 1,000 unit PO DAILY SUPPLEMENT 10/07/17 haloperidol 5 mg tablet 2.5 mg PO BID MOOD 10/07/17 loratadine 10 mg tablet 10 mg PO DAILY PRN Allergy Symptoms 04/02/18 escitalopram oxalate 10 mg tablet 10 mg PO QHS ANXIETY 01/15/19 acetaminophen 325 mg tablet (Tylenol) 650 mg PO Q4H PRN PRN Fever, pain 1-03/29 #0 tabs 03/30/22 benzonatate 100 mg capsule 200 mg PO TID PRN cough #0 caps 03/30/22 guaifenesin 1,200 mg tablet, extended release 12 hr (Mucus Relief ER) 1,200 mg PO BID #14 tabs 03/30/22 ipratropium 0.5 mg-albuterol 3 mg (2.5 mg base)/3 mL nebulization soln 3 ml inhalation Q4HWA.RT PRN SOB #0 mL 03/30/22 prednisone 10 mg tablets in a dose pack See Taper PO DAILY #30 tabs 03/30/22 sennosides 8.6 mg-docusate sodium 50 mg tablet (Stool Softener-Stimulant Laxative) 2 tab PO BID PRN PRN Constipation #0 tabs 03/30/22 Hospital Course Summary of Care Provided Hospital Course: 71-year-old female admitted with 3 days of progressive shortness of breath, fatigue, dyspnea worse with exertion with nonproductive cough and severe wheezing consistent with acute hypoxic respiratory failure due to COPD exacerbation: 1. Acute hypoxic respiratory failure secondary to COPD exacerbation: Patient remains on and off BiPAP to [employer]. COVID antigen, respiratory panel negative. Sputum culture gram stain shows GPC, GNR Patient on IV Solu-Medrol, IV cefepime and vancomycin. Embedded Firmware Developer following. Bronchodilator,Incentive spirometry and Pep 03/28: Patient is still on 50% FiO2, 60 L/min air Vo. Was on BiPAP at night.Sputum culture shows mixed normal respiratory brent. Continue IV antibiotic. 03/29: Patient requires high oxygen, NIPPV BiPAP. Discussed with the continuous pillowcase cutter might need SNF where she can be on oxygen/NIPPV. Encouraged incentive spirometry and PEP.Patient did not had fever. Vancomycin discontinued as she had since admission.Solu-Medrol changed to prednisone 40 mg daily 03/30: Patient on 3.5 L of oxygen. Continue BiPAP support at night. Discussed with continuous pillowcase cutter. 03/31: Patient requires BiPAP intermittently during daytime and at night. Pulmonary follow-up reviewed. Patient completed 7 days of IV empiric antibiotics. Pneumonia work-up did not show any particular organism. Continue incentive spirometry, Pep, and Mucinex. Discharged on tapering dose of prednisone. Mild hypokalemia: Potassium replaced. 2. Leukocytosis, stable on serial monitor -Appears to be chronic but higher than baseline -Likely secondary to steroid use -Procalcitonin is low at 0.06 Hyperglycemia -Likely reactive secondary to steroids -Current A1c is 5.5 Suspected COPD -Patient is not on any respiratory medications at baseline - outpatient follow-up with pulmonary medicine after discharge Patient Need outpatient PFTs Hypertension -Continue amlodipine History of DVT -Not currently on any anticoagulation -Timing is unclear History of schizophrenia -Continue Haldol -Continue home Lexapro Obesity -BMI 38.1 -Complicates treatment, prognosis, outcomes -Recommend weight loss Suspected MARK -Patient will need outpatient follow-up for sleep apnea study once she is clinically improved from a respiratory standpoint Tobacco abuse -Recommend cessation strongly -Nicotine replacement therapy if desired DVT prophylaxis -Lovenox -SCDs CODE STATUS -Full code Discharge medication reconciliation done. Discharge follow-up instructions completed. Discharge process discussed with the patient and all questions were answered to patient's satisfaction. Transfer to SNF. Total time spent, exact 35 minutes on discharge meds reconciliation, examination, coordination of care with nurses and ancillary staff, review of imaging and blood test and discussion with the patient on follow-up instructions. Microbiology Past 72 Hours 03/31/22 14:25 Nasal Secretion SARS-CoV-2 Antigen (Rapid) - Final Laboratory Results 03/31/22 06:35: WBC 18.6 H, RBC 4.76, Hgb 13.8, Hct 43.4, MCV 91.2, MCH 29.0, MCHC 31.8 L, RDW Std Deviation 40.0, RDW Coeff of Jaspal 12.0, Plt Count 298, MPV 9.9, Immature Gran % (Auto) 0.500, Neut % (Auto) 68.4, Lymph % (Auto) 21.4, [place] % (Auto) 8.3, Eos % (Auto) 1.2, Baso % (Auto) 0.2, Absolute Neuts (auto) 12.7 H, Absolute Lymphs (auto) 3.99, Nucleated RBC % 0, Differential Comment SCANNED, Diff Path Review Reviewed 03/31/22 06:35: Sodium 140, Potassium 3.3 L, Chloride 102, Carbon Dioxide 38.0 H, Anion Gap 0 L, BUN 15, Creatinine 0.50 L, Estim Creat Clear Calc 44.56, Est GFR (MDRD) Af Amer 155, Est GFR (MDRD) Non-Af 128, BUN/Creatinine Ratio 29.8 H, Glucose 90, Calcium 8.1 L Physical Exam Narrative Physical exam General: Awake, oriented x3. Patient on about 4 L of oxygen. Looks better. HEENT: Atraumatic, PERRLA, EOMI, Normocephalic Oral: Oral mucosa moist. Neck: Supple, No JVD, Negative Carotid Bruits Lungs: Air entry diminished in bilateral lung bases. Bilateral coarse rhonchi and crepitations improving Cardiovascular: Regular rate, Regular Rhythm, Normal S1, Normal S2, No murmurs Abdomen: Bowel Sounds Present, Soft, Non Tender, Non-Distended : No burning micturition. No renal angle tenderness. No suprapubic tenderness. Extremities: No edema, Capillary Refill Less than 3 Seconds Skin: No rashes, No breakdown Musculoskeletal: No Tenderness to Palpation of Joints or Extremities. ROM restricted Neurological: Cranial nerves II-XII grossly intact, DTR 2+. Psych/Mental Status: Flat affect. Schizophrenia. Weight / BMI Weight Weight: 223 lb 5.252 oz Body Mass Index (BMI) 38.1 ABG / Lab / Microbiology Data Result Diagrams: 03/31/22 06:35 03/31/22 06:35 Laboratory: Laboratory Results - last 24 hr 03/31/22 06:35: WBC 18.6 H, RBC 4.76, Hgb 13.8, Hct 43.4, MCV 91.2, MCH 29.0, MCHC 31.8 L, RDW Std Deviation 40.0, RDW Coeff of Jaspal 12.0, Plt Count 298, MPV 9.9, Immature Gran % (Auto) 0.500, Neut % (Auto) 68.4, Lymph % (Auto) 21.4, [place] % (Auto) 8.3, Eos % (Auto) 1.2, Baso % (Auto) 0.2, Absolute Neuts (auto) 12.7 H, Absolute Lymphs (auto) 3.99, Nucleated RBC % 0, Differential Comment SCANNED, Diff Path Review Reviewed 03/31/22 06:35: Sodium 140, Potassium 3.3 L, Chloride 102, Carbon Dioxide 38.0 H, Anion Gap 0 L, BUN 15, Creatinine 0.50 L, Estim Creat Clear Calc 44.56, Est GFR (MDRD) Af Amer 155, Est GFR (MDRD) Non-Af 128, BUN/Creatinine Ratio 29.8 H, Glucose 90, Calcium 8.1 L Microbiology: Microbiology 03/25/22 09:13 Sputum, Expectorated/Coughed Gram Stain - Final 03/25/22 09:13 Sputum, Expectorated/Coughed Respiratory Culture - Final 03/25/22 Unknown Urine, Clean Catch Streptococcus pneumoniae Antigen (M - Final 03/24/22 20:00 Urine, Clean Catch Legionella Antigen - Final 03/24/22 17:15 Interface Orders Respiratory Panel (PCR) - Final 03/24/22 15:27 Nasal Secretion SARS-CoV-2 Antigen (Rapid) - Final Meaningful Use Info Meaningful Use Diagnoses (Choose all that apply): None applicable Discharge Plan Admission Admit Date/Time: 03/24/22 16:13 Primary Reason for Your Visit: Acute hypoxic respiratory failure Attending Provider: Hernán Berg Primary Care Provider: Anthony Schwartz Consulting Providers: Kaycee Stauffer ; Kwame Jones ; Toro Ruvalcaba ; Alonso Brito ; Gino Cespedes ; Sanjuana Armendariz RATCHET SETTER ; Nikki Gupta Discharge Orders/Prescriptions Prescriptions: New acetaminophen [Tylenol] 325 mg Tablet 650 mg PO Q4H PRN PRN (Reason: Fever, pain 1-03/29) Qty: 0 0RF ipratropium-albuterol 0.5 mg-3 mg(2.5 mg base)/3 mL Solution For Nebulization 3 ml inhalation Q4HWA.RT PRN (Reason: SOB) Qty: 0 0RF sennosides-docusate sodium [Stool Softener-Stimulant Laxat] 8.6-50 mg Tablet 2 tab PO BID PRN PRN (Reason: Constipation) Qty: 0 0RF benzonatate 100 mg Capsule 200 mg PO TID PRN (Reason: cough) Qty: 0 0RF Mucus Relief ER 1,200 mg Tablet Extended Release 12hr 1,200 mg PO BID Qty: 14 0RF prednisone 10 mg tablets,dose pack See Taper PO DAILY Qty: 30 0RF Taper: Prednisone Taper 40 mg WITH BREAKFAST for 3 Days and 0 Hour 30 mg WITH BREAKFAST for 3 Days and 0 Hour 20 mg WITH BREAKFAST for 3 Days and 0 Hour 10 mg WITH BREAKFAST for 3 Days and 0 Hour Continued haloperidol 5 MG tablet 2.5 mg PO BID amlodipine 5 MG tablet 5 mg PO DAILY benztropine 1 MG tablet 0.5 mg PO DAILY cholecalciferol (vitamin D3) [Vitamin D3] 1,000 UNIT capsule 1,000 unit PO DAILY loratadine 10 MG tablet 10 mg PO DAILY PRN (Reason: Allergy Symptoms) escitalopram oxalate 10 MG tablet 10 mg PO QHS Referrals / Follow Up: Anthony Schwartz MD [Primary Care Provider] - Disposition Disposition (needs filled in before D/C Order can be placed): [facility] Charges/Coding Visit Charges Inpatient E&M: 58196 Disch Hosp
--- NOTE | 2022-03-31 14:54 | CASEMGMT ---
Patient was approved to go to [facility]. SW sent orders to [facility] via [employer]. JOSE MIGUEL also notified Sera that patient will now need bipap. SW sent settings via [employer]. Patient has not been regularly wearing bipap until today. JOSE MIGUEL completed 7000 in [place]. JOSE MIGUEL called [facility] and requested a 4p slate picker via wheelchair. Trip number is [id number]. Batch Mixing Truck Driver received a phone call and [facility] will be here to slate picker patient at 4p. JOSE MIGUEL called Alison Benites, patient's covering piano case maker with [facility] and let her know patient is being discharged to [place] today. JOSE MIGUEL also notified patient of her slate picker time. All in agreement. Plan: d/c to [facility] under skilled level of care on a 7000. [facility] transported via wheelchair van. This was arranged via [employer]. Sandy JOYNER
--- NOTE | 2022-03-31 15:05 | CASEMGMT ---
Addendum entered by Sandy Pedraza 03/31/22 15:07: COVID test sent to [facility] via [employer]. Sandy JOYNER Original Note: also notified [facility] of supervisor opening and picking time via [employer] and e-mail. Sandy JOYNER
--- NOTE | 2022-03-31 15:37 | NURSING ---
gave report to nurse anne at [facility]
== END 2022-03-31 16:45 | disposition skilled nursing facility (03) | DRG 189 ==
LOC: ED 16:17 → PCU 16:42
PROVIDERS: Internal Medicine; Internal Medicine Critical Care Medicine; Admitting Provider Family Medicine; Emergency Provider Emergency Medicine; PCP Family Medicine; Visit Provider Internal Medicine
DX: J96.01 Acute respiratory failure with hypoxia (principal); J44.1 Chronic obstructive pulmonary disease with (acute) exacerbation; E66.01 Morbid (severe) obesity due to excess calories; F20.9 Schizophrenia, unspecified; F17.210 Nicotine dependence, cigarettes, uncomplicated; I10 Essential (primary) hypertension; G47.33 Obstructive sleep apnea (adult) (pediatric); E87.6 Hypokalemia; J40 Bronchitis, not specified as acute or chronic; R73.9 Hyperglycemia, unspecified; Z20.822 Contact with and (suspected) exposure to COVID-19; Z68.38 Body mass index [BMI] 38.0-38.9, adult; Z71.6 Tobacco abuse counseling; Z23 Encounter for immunization; Z86.718 Personal history of other venous thrombosis and embolism
CPT/HCPCS: 36415; 71045; 71275; 74230; 80048; 80053; 80202; 83036; 83735; 83880; 84100; 84145; 84484; 85025; 87070; 87205; 87426; 87449; 87633; 87811; 92526; 92610; 92611; 93005; 93306; 94002; 94003; 94640; 94668; 94762; 97162; 97166; 97530; 97535; 99251; 99285; G0008; J7030; J7040; J7050; Q9957; Q9967; 90686; A4216; C8929; G0463; J1940

== ENCOUNTER 2024-04-09 15:38 | Emergency (ER) | payer MEDICARE, MEDICAID, SELFPAY ==
[2024-04-09 15:39] VITALS: BP 151/93; PULSE 91; RESP 19; TEMP 35.7; O2SAT 94; BMI 33.7
--- NOTE | 2024-04-09 15:53 | EDS_ITS ---
HPI History of Present Illness Chief Complaint: Mental Status Change [facility] Medical History (Updated 04/08/22 @ 00:02 by Background Neeta) COPD (chronic obstructive pulmonary disease) Morbid obesity Acute respiratory failure with hypoxia COPD exacerbation History of venous thromboembolism Tobacco dependence Schizophrenia Essential hypertension Home Medications ?Medication ?Instructions ?Recorded ?Last Taken ?Type amlodipine 5 mg tablet 5 mg PO DAILY BP 10/07/17 03/24/22 History benztropine 1 mg tablet 0.5 mg PO DAILY PARKINSONS 10/07/17 03/24/22 History cholecalciferol (vitamin D3) 25 1,000 unit PO DAILY SUPPLEMENT 10/07/17 03/24/22 History mcg (1,000 unit) capsule (Vitamin D3) haloperidol 5 mg tablet 2.5 mg PO BID MOOD 10/07/17 03/24/22 History loratadine 10 mg tablet 10 mg PO DAILY PRN Allergy Symptoms 04/02/18 03/23/22 History escitalopram oxalate 10 mg tablet 10 mg PO QHS ANXIETY 01/15/19 03/23/22 History acetaminophen 325 mg tablet 650 mg (2 x 325 mg) PO Q4H PRN PRN 03/30/22 Unknown Rx (Tylenol) Fever, pain 1-03/29 #0 tabs benzonatate 100 mg capsule 200 mg (2 x 100 mg) PO TID PRN 03/30/22 Unknown Rx cough #0 caps guaifenesin 1,200 mg tablet, 1,200 mg PO BID #14 tabs 03/30/22 Unknown Rx extended release 12 hr (Mucus Relief ER) ipratropium 0.5 mg-albuterol 3 mg 3 ml inhalation Q4HWA.RT PRN SOB 03/30/22 Unknown Rx (2.5 mg base)/3 mL nebulization #0 mL soln prednisone 10 mg tablets in a dose See Taper PO DAILY #30 tabs 03/30/22 Unknown Rx pack sennosides 8.6 mg-docusate sodium 2 tab PO BID PRN PRN Constipation 03/30/22 Unknown Rx 50 mg tablet (Stool #0 tabs Softener-Stimulant Laxative) Allergy/AdvReac Type Severity Reaction Status Date / Time Penicillins Allergy Hives Verified 04/09/24 15:43 Family History (Updated 03/24/22 @ 17:[address] Kaycee Stauffer MD) Mother Uterine cancer Hypertension Father Hypertension Lung cancer Concurrent tobacco use history. Surgical History Status post ORIF of fracture of ankle H/O: hysterectomy Social History (Updated 03/24/22 @ 17:[address] Kaycee Stauffer MD) housing: other details: [facility]. Smoking Status: Current every day smoker tobacco type: cigarettes alcohol intake: never substance use type: does not use EXAM Physical Exam Const Vital Signs: 04/09/24 15:39 04/09/24 16:38 04/09/24 17:00 Temperature 96.3 F L Temperature Source Temporal Pulse Rate 91 Respiratory Rate 19 H Blood Pressure 151/93 H 153/82 H 139/65 H Blood Pressure Mean 112 105 89 Pulse Ox 94 Oxygen Delivery Method Room Air MDM MDM MDM Narrative Medical decision making narrative: HISTORY OF PRESENT ILLNESS: 73-year-old female presents concern for homicidal ideation. The patient states entities and werewolf's . Patient denies SI and HI. She is concerned that her retirement is overdosing her on Tylenol . Patient endorses there are no focal forces at work. That are trying to poison her at her retirement. Notes this is why she has not been taking her lithium. The patient denies any physical complaint such as headache, chest pain, shortness of breath, recent fevers, abdominal pain, trouble urinating. No recent trauma or falls. Denies SI, HI, auditory or visual hallucinations to me. REVIEW OF SYSTEMS: Pertinent positives: None Pertinent negatives: Suicidal ideation, homicidal ideation, auditory or visual hallucinations PHYSICAL EXAM: Nursing triage notes reviewed, Vital signs reviewed Constitutional: please see mdm HENT: MMM Eyes: Pupils equal round and reactive to light, Extraocular muscles intact Neck: No stridor, no JVD, full neck ROM Lungs: Clear to auscultation, No wheezing or rales. No increased work of breathing, no conversational dyspnea, no accessory muscle use, no nasal flaring. No respiratory distress noted Heart: Regular rate and rhythm, No murmurs, No rubs and No gallops, 2+ distal pulses (radial, femoral, posterior tibial) in all extremities Abdomen: Soft, there is no tenderness, rigidity, rebound or guarding, no obvious peritoneal signs, no palpable pulsatile abdominal masses, no auscultated abdominal bruit : No CVAT Extremities: No edema Neuro: Grossly intact, patient is alert, oriented to person place and time, had intact sensation and strength in all 4 extremities, 2+ patellar reflexes. Skin: No rash or lesions noted MEDICAL DECISION MAKING: Chief Complaint: Decompensated schizophrenia External records reviewed: Reviewed allergies, problem list, vital signs, current medications Factors affecting care: Schizophrenia, hypertension, COPD Social determinants of health: history of behavioral health disease History obtained from others: none Consults: Behavioral health, crisis [facility] Narrative: Patient was hemodynamically stable, afebrile, nontoxic-appearing. Patient was alert and orient x 3 and in no signs of trauma or decreased mental status. However given report of change in mental status I did obtain a broad workup including urinalysis, CT scan of the head as well as additional behavioral health labs including urine tox screen serum alcohol. Given history of COPD I did obtain a VBG to rule out signs of CO2 narcosis I considered the following differential diagnosis: Decompensated schizophrenia, ICH, CO2 retention, anemia, infectious or metabolic encephalopathy, lithium overdose ALL IMAGES (IF OBTAINED) HAVE BEEN PERSONALLY REVIEWED AND INTERPRETED BY MYSELF. Behavioral health ([facility]) CT scan of the head showed no evidence of intracranial hemorrhage I have personally reviewed the patient's chest x-ray. Chest x-ray is unremarkable for pulmonary edema, pneumothorax, pneumonia or focal cardiopulmonary abnormality. VBG showed no evidence of CO2 retention Nicholls, salicylate and Tylenol level negative suggestive of no overdose also suggestive of med noncompliance Serum alcohol is negative CBC with leukocytosis, no anemia or thrombocytopenia noted BMP with hypokalemia, no evidence of metabolic acidosis or endorgan hypoperfusion Urinalysis shows no evidence of urinary inflammation suggestive of UTI Synthesis of the patient's history, physical exam, labs images suggest likely decompensated schizophrenia. This is evidenced by negative lithium level. Given patient's advanced age she would benefit from psychiatric evaluation for medication stabilization. The behavioral health specialist agreed with my interpretation will begin looking for suitable inpatient psychiatric facilities. The patient and/or family, caregivers express understanding. The patient and/or family, caregivers agrees with the plan. Shared decision making: I will have a discussion with the patient and or visitors regarding risk/benefits of further testing or admission. They will be made aware of of the risk/benefits inherent in this decision they will be given the opportunity to voice understanding. Total critical care time today provided was at least 0 minutes. This excludes separately billable procedures. Critical care time (if documented) is secondary to the patient having high probability of clinically significant/life threatening deterioration in the patient's condition which required my urgent intervention. Impression: 1. Abnormal behavior 2. Homicidal ideation 3. History of schizophrenia and 4. Medication noncompliance Dispo: Admit to inpatient psychiatric facility This note was generated with [employer] dictation software. It may contain incorrect words, spelling, and punctuation that were not noted in review of the chart prior to signing. Lab Data Labs: Laboratory Results - last 24 hr 04/09/24 04/09/24 16:30 16:33 WBC 12.1 H RBC 4.96 Hgb 14.1 Hct 43.1 MCV 86.9 MCH 28.4 MCHC 32.7 RDW Std Deviation 42.7 RDW Coeff of Jaspal 13.5 Plt Count 323 MPV 10.8 Immature Gran % (Auto) 0.400 Neut % (Auto) 68.8 Lymph % (Auto) 23.2 [place] % (Auto) 6.4 Eos % (Auto) 1.0 Baso % (Auto) 0.2 Absolute Neuts (auto) 8.3 H Absolute Lymphs (auto) 2.80 Nucleated RBC % 0 Sodium 140 Potassium 3.0 L Chloride 105 Carbon Dioxide 28.0 Anion Gap 7 BUN 5 L Creatinine 0.68 Estim Creat Clear Calc 67.77 Est GFR (MDRD) Af Amer 109 Est GFR (MDRD) Non-Af 90 BUN/Creatinine Ratio 7.3 L Glucose 93 Calcium 9.6 Serum , Qual NEGATIVE Urine Color Yellow Urine Clarity Clear Urine pH 7.0 Ur Specific [place] 1.005 Urine Protein Negative Urine Glucose (UA) Normal Urine Ketones Negative Urine Occult Blood Negative Urine Nitrite Negative Urine Bilirubin Negative Urine Urobilinogen Normal Ur Leukocyte Esterase Negative Urine RBC 0 SEEN Urine WBC 0 SEEN Ur Squamous Epith Cells 0-5 SEEN Urine Bacteria RARE Urine Mucus 0 SEEN Salicylates < 1.7 L Urine Opiates Screen NEGATIVE Urine Methadone Screen NEGATIVE Acetaminophen < 2.0 L Ur Barbiturates Screen NEGATIVE Ur Phencyclidine Scrn NEGATIVE Ur Amphetamines Screen NEGATIVE MDMA (Ecstasy) Screen NEGATIVE U Benzodiazepines Scrn NEGATIVE Nicholls < 0.20 L Urine Cocaine Screen NEGATIVE U Cannabinoids Screen NEGATIVE Ur Drug Screen Comment Ethyl Alcohol < 3.0 ABG Data ABG results: ABG 04/09/24 16:32 Specimen Type MERY Sample Site Not entered VBG pH 7.48 H VBG pO2 32 VBG HCO3 27 H VBG Total CO2 28 VBG O2 Sat (Calc) 67 VBG Base Excess 3 POC Mix VBG pCO2 Pt Tmp 35.8 L O2 Delivery Device Not entered Radiography Diagnostic Testing: Clinical Impression(s) from Imaging Studies Chest X-Ray 04/09/24 16:35 IMPRESSION: No radiographic evidence of acute cardiopulmonary disease. Electronically Signed: Farrukh Prado MD at 16:50 EDT , Brain CT 04/09/24 17:02 IMPRESSION: Negative head/brain CT without intravenous contrast. There has been no significant change from the reference exam. Electronically Signed: Farrukh Prado MD at 17:37 EDT , Discharge Plan Triage Chief Complaint: Mental Status Change Other Complaint: Mental Health ED Provider: Axel Hay Dx/Rx/DC Orders Prescriptions: No Action haloperidol 5 MG tablet 2.5 mg PO BID amlodipine 5 MG tablet 5 mg PO DAILY benztropine 1 MG tablet 0.5 mg PO DAILY cholecalciferol (vitamin D3) [Vitamin D3] 1,000 UNIT capsule 1,000 unit PO DAILY loratadine 10 MG tablet 10 mg PO DAILY PRN (Reason: Allergy Symptoms) escitalopram oxalate 10 MG tablet 10 mg PO QHS acetaminophen [Tylenol] 325 mg Tablet 650 mg PO Q4H PRN PRN (Reason: Fever, pain -03/29) Qty: 0 0RF ipratropium-albuterol 0.5 mg-3 mg(2.5 mg base)/3 mL Solution For Nebulization 3 ml inhalation Q4HWA.RT PRN (Reason: SOB) Qty: 0 0RF sennosides-docusate sodium [Stool Softener-Stimulant Laxat] 8.6-50 mg Tablet 2 tab PO BID PRN PRN (Reason: Constipation) Qty: 0 0RF benzonatate 100 mg Capsule 200 mg PO TID PRN (Reason: cough) Qty: 0 0RF Mucus Relief ER 1,200 mg Tablet Extended Release 12hr 1,200 mg PO BID Qty: 14 0RF prednisone 10 mg tablets,dose pack See Taper PO DAILY Qty: 30 0RF Taper: Prednisone Taper 40 mg WITH BREAKFAST for 3 Days and 0 Hour 30 mg WITH BREAKFAST for 3 Days and 0 Hour 20 mg WITH BREAKFAST for 3 Days and 0 Hour 10 mg WITH BREAKFAST for 3 Days and 0 Hour Primary Care Provider: Anthony Schwartz Referrals: Anthony Schwartz MD [Primary Care Provider] - Print Language: Arabic
[2024-04-09 16:35] LABS: Blood Gas Specimen Type VEN; O2 Delivery Device Not entered; SITE Not entered; VBG BASE EXCESS 3 mmol/L (-1.0-3.5); VBG Bicarbonate 27 mmol/L (22-26); VBG PO2 32 mmHg (25-40); VBG SO2 67 % (50-70); VBG TCO2 28 mmol/L (23-33); VBG pCO2 35.8 mmHg (41-51); VBG pH 7.48 (7.32-7.42)
--- NOTE | 2024-04-09 16:35 | RAD_ITS ---
EXAM: XR CHEST, 1 VIEW CLINICAL INDICATION: change in mental status TECHNIQUE: Frontal view of the chest. COMPARISON: 03/27/2022 FINDINGS: LUNGS AND PLEURAL SPACES: Unremarkable. No consolidation or edema. No pneumothorax. No effusion. HEART: Unremarkable. Cardiac silhouette not enlarged. MEDIASTINUM: Central airways and mediastinal contour are unremarkable. BONES/JOINTS: Unremarkable. No acute fracture. SOFT TISSUES: Unremarkable. RAD/Chest 1 View (Portable) IMPRESSION: No radiographic evidence of acute cardiopulmonary disease. Electronically Signed: Farrukh Prado MD at 16:50 EDT ,
[2024-04-09 16:38] VITALS: BP 153/82
[2024-04-09 16:52] LABS: Absolute Neutrophil Count 8.3 X10^3/uL (2.0-7.7); Basophil# 0.03 X10^3/uL; Basophil% 0.2 % (0-1); Eosinophil# 0.12 X10^3/uL; Hematocrit 43.1 % (37-47); Hemoglobin 14.1 g/dL (12.0-15.0); Lymphocyte % 23.2 % (19-41); Mean Corp Hgb Conc 32.7 g/dL (32-36); Mean Corpuscular Hgb 28.4 pg (27.0-32.0); Mean Corpuscular Volume 86.9 fL (81-99); Mean Platelet Vol. 10.8 fl (6.2-12.0); Monocyte# 0.77 X10^3/uL; Monocyte% 6.4 % (0-10); NRBC Flagged by Analyzer 0 % (0-5); Neutrophil # 8.32 X10^3/uL (2.7-7.7); Neutrophil % 68.8 % (47-70); Platelet Count 323 K/mm3 (150-450); RBC Distribution Width CV 13.5 % (11.6-14.6); RBC Distribution Width SD 42.7 fl (35.1-43.9); Red Blood Count 4.96 M/mm3 (4.2-5.4); White Blood Count 12.1 K/mm3 (4.4-11.0)
[2024-04-09 16:55] LABS: Mucous, Urine 0 SEEN /hpf (<or=2+); Red Blood Cells-Urine 0 SEEN /hpf (0-5); White Blood Cells 0 SEEN /hpf (0-5)
[2024-04-09 16:57] LABS: Amphetamine Urine VISTA NEGATIVE (<1000 ng/mL); Barbiturate Urine VISTA NEGATIVE (< 200 ng/mL); Benzodiazepine Urine VISTA NEGATIVE (< 200 ng/mL); Cocaine Urine VISTA NEGATIVE (< 300 ng/mL); Ecstacy Urine VISTA NEGATIVE (< 500 ng/mL); Methadone Urine VISTA NEGATIVE (< 300 ng/mL); PCP Urine VISTA NEGATIVE (< 25 ng/mL); THC Urine VISTA NEGATIVE (< 50 ng/mL); Vista UDS pH Range 7
[2024-04-09 16:58] LABS: Internal QC Validated? YES +Cl - CLEAR BKGD; Pregnancy, Serum, hCG Quali. NEGATIVE Negative
[2024-04-09 17:00] VITALS: BP 139/65
[2024-04-09 17:01] LABS: Color, Urine Yellow (Yellow); Glucose, Dipstick Normal (Normal); Ketone-Dipstick Negative (Negative); Leukocyte Esterase-Dipstick Negative /ul (Negative); Nitrite-Dipstick Negative (Negative); Occult Blood-Urine Negative /ul (Negative); Protein-Dipstick Negative (Negative); Specific Gravity, Urine 1.005 (1.002-1.030); Urine Bilirubin Dipstick Negative (Negative); Urine Clarity Clear (Clear); Urine Urobilinogen Normal (Normal)
--- NOTE | 2024-04-09 17:02 | CT_ITS ---
EXAM: CT HEAD WITHOUT INTRAVENOUS CONTRAST CLINICAL INDICATION: Change in Mental Status TECHNIQUE: Multiple axial images were obtained of the head without intravenous contrast. This CT exam was performed using one or more of the following dose reduction techniques: automated exposure control, adjustment of the mA and/or kV according to patient size, and/or use of iterative reconstruction technique. COMPARISON: 09/02/2015 FINDINGS: BRAIN AND EXTRA-AXIAL SPACES: Unremarkable. No intra- or extra-axial hemorrhage. No evidence of acute infarct. No intracranial mass or mass effect. There is preservation of the arroyo/white matter interface. Posterior fossa structures are unremarkable. Ventricles are appropriate for age. No hydrocephalus. Basal cisterns are patent. BONES/JOINTS: Unremarkable. No discrete lytic or blastic abnormalities. SINUSES: Unremarkable as visualized. Clear. MASTOID AIR CELLS: Unremarkable. Clear. ORBITS: Visualized globes, extraocular muscles, optic nerves and retrobulbar fat appear unremarkable. CT/Brain/Head without Contrast IMPRESSION: Negative head/brain CT without intravenous contrast. There has been no significant change from the reference exam. Electronically Signed: Farrukh Prado MD at 17:37 EDT ,
[2024-04-09 17:03] LABS: Anion Gap 7 (5-15); BUN 5 mg/dL (7-18); BUN/Creat Ratio 7.3 RATIO (10-20); Calcium,Total 9.6 mg/dL (8.5-10.1); Chloride 105 mmol/L (98-107); Creatinine, Serum 0.68 mg/dL (0.55-1.02); EST Glomerular Filtration Rate 90 mL/min (>60); Est Glom Filt Rate - Afr Amer 109 mL/min (>60); Estimated Creatinine Clearance 67.77 ml/min; Glucose 93 mg/dL (74-106); Sodium Level 140 mmol/L (136-145)
[2024-04-09 17:04] LABS: Alcohol, Blood (Medical)-Serum < 3.0 mg/dL
[2024-04-09 17:07] LABS: Acetaminophen (Tylenol) Level < 2.0 ug/mL (10.0-30.0); Salicylate < 1.7 mg/dL (2.8-20.0)
[2024-04-09 17:14] LABS: Lithium < 0.20 mmol/L (0.60-1.20)
[2024-04-09 17:15] LABS: Bacteria RARE /hpf (None Seen); Squamous Epithelial Cells - UA 0-5 SEEN /hpf (5-10)
--- NOTE | 2024-04-09 17:50 | NURSING ---
CRISIS TO SEE
--- NOTE | 2024-04-09 18:04 | ED.RN ---
offered pt. a nicotine patch, pt. refused.
--- NOTE | 2024-04-09 18:07 | ED.RN ---
this RN attempted to call tobias tyler for medication list. tobias tyler did not answer phone call x2.
--- NOTE | 2024-04-09 20:31 | ED.RN ---
Patient ambulated to the restroom with assistance. Warm blanket provided when patient returned to room.
[2024-04-09 22:03] VITALS: PULSE 70; RESP 14; O2SAT 97
[2024-04-09 22:30] VITALS: BP 152/58; PULSE 76; RESP 18; O2SAT 95
--- NOTE | 2024-04-09 23:33 | ED.RN ---
This RN contacted legal guardian to obtain paperwork, no answer. Voicemail left by RN
[2024-04-10 04:15] VITALS: BP 152/58; PULSE 76; RESP 18; TEMP 35.7; O2SAT 95
--- NOTE | 2024-04-10 06:28 | ED.RN ---
Spoke to [place] guardian via phone call updating on pt status. Questions/concerns answered
[2024-04-10 06:36] VITALS: BP 161/65; PULSE 81; RESP 17; O2SAT 98
== END 2024-04-10 07:51 ==
PROVIDERS: Emergency Provider Emergency Medicine; PCP Family Medicine; Visit Provider Emergency Medicine
DX: R41.82 Altered mental status, unspecified (principal); F20.9 Schizophrenia, unspecified; J44.9 Chronic obstructive pulmonary disease, unspecified; E66.01 Morbid (severe) obesity due to excess calories; R45.850 Homicidal ideations; E87.6 Hypokalemia; I10 Essential (primary) hypertension; F17.210 Nicotine dependence, cigarettes, uncomplicated; Z88.0 Allergy status to penicillin; Z59.01 Sheltered homelessness; Z79.899 Other long term (current) drug therapy; Z86.718 Personal history of other venous thrombosis and embolism; Z91.148 Patient's other noncompliance with medication regimen for other reason
CPT/HCPCS: 70450; 71045; 80048; 80143; 80178; 80179; 80307; 81001; 82077; 82803; 84703; 85025; 87811; 99285; A4216